=== PATIENT | male | born 1940 | race Caucasian/White ===

== ENCOUNTER 2018-12-24 03:04 | Inpatient (IN) | payer MEDICARE, OTHER ==
[2018-12-24] VITALS (64 sets, daily range): BP systolic 96–145; BP diastolic 53–93; PULSE 73–98; RESP 15–29
[~2018-12-24] VITALS: Ht 170.2 cm; Wt 81.0 kg
[2018-12-24] MEDS ORDERED: NITROGLYCERIN 50 MG/D5W (PMX) 250 ML ONE (03:09)
[2018-12-24] MEDS ORDERED: FUROSEMIDE 40 MG INJ ONE (03:15)
[2018-12-24] MEDS ORDERED: FUROSEMIDE 40 MG INJ IV ONE (03:30)
[2018-12-24] MEDS ORDERED: NITROGLYCERIN 50 MG/D5W (PMX) 250 ML IV SCH (03:30)
--- NOTE | 2018-12-24 04:19 | ERD ---
ER Documentation Chief Complaint Chief Complaint bib ra from home for sob, patient has hx of chf, on cpap upon arrival HPI This is a 78-year-old male brought in by rescue for acute onset of shortness of breath. Patient has history of CHF. EMS placed patient on CPAP prior to arrival. EKG shows STEMI.. Patient denies any chest pain. ROS All systems reviewed and are negative except as per history of present illness. PMhx/Soc Medical and Surgical Hx: Unable to obtain Hx Alcohol Use: No Hx Substance Use: No Hx Tobacco Use: No Smoking Status: Never smoker Physical Exam Vitals Vital Signs Date Temp Pulse Resp B/P (MAP) Pulse Ox O2 O2 Flow FiO2 Time Delivery Rate 12/24/18 107 24 122/74 100 BIPAP 04:11 (90) 12/24/18 Nasal 03:36 Cannula 12/24/18 98.1 125 44 150/93 100 Room Air 03:16 (112) 12/24/18 98.1 127 44 170/100 100 03:16 (123) Physical Exam Const: No acute distress Head: Atraumatic Eyes: Normal Conjunctiva ENT: Normal External Ears, Nose and Mouth. Neck: Full range of motion. No meningismus. Resp: Clear to auscultation bilaterally Cardio: Regular rate and rhythm, no murmurs Abd: Soft, non tender, non distended. Normal bowel sounds Skin: No petechiae or rashes Back: No midline or flank tenderness Ext: No cyanosis, or edema Neur: Awake and alert Psych: Normal Mood and Affect Result Diagram: 12/24/18 0320 Results 24 hrs Laboratory Tests Test 12/24/18 03:12 12/24/18 03:20 Bedside Glucose 409 mg/dL White Blood Count 21.6 10^3/ul Red Blood Count 4.19 10^6/ul Hemoglobin 12.3 g/dl Hematocrit 40.4 % Mean Corpuscular Volume 96.4 fl Mean Corpuscular Hemoglobin 29.4 pg Mean Corpuscular Hemoglobin Concent 30.4 g/dl Red Cell Distribution Width 14.3 % Platelet Count 456 10^3/UL Mean Platelet Volume 10.6 fl Immature Granulocytes % 0.800 % Neutrophils % 55.4 % Lymphocytes % 35.3 % Monocytes % 4.0 % Eosinophils % 3.9 % Basophils % 0.6 % Nucleated Red Blood Cells % 0.0 /100WBC Immature Granulocytes # 0.170 10^3/ul Neutrophils # 11.9 10^3/ul Lymphocytes # 7.6 10^3/ul Monocytes # 0.9 10^3/ul Eosinophils # 0.8 10^3/ul Basophils # 0.1 10^3/ul Nucleated Red Blood Cells # 0.0 10^3/ul Current Medications Medications Dose Sig/Kiko Start Time Status Last (Trade) Ordered Route PRN Stop Time Admin Dose Reason Admin 250 ml @ 0 TITRATE IV 12/24/18 12/24/18 Nitroglycerin mls/hr 03:30 03:44 / Dextrose Furosemide 80 mg ONCE ONCE 12/24/18 DC 12/24/18 (Lasix) IV 03:30 03:44 12/24/18 03:31 Procedures/MDM EKG: Rate/Rhythm: [Normal Sinus Rhythm] QRS, ST, T-waves: [No changes consistent w/ acute ischemia] Impression: [No evidence of ischemia or arrhythmia] Chest X-ray 1V Interpreted by me: Soft Tissue: No acute abnormalities Bones: No acute abnormalities Mediastinum/Cardiac Silhouette/Lungs: Increased interstitial markings. Impression: CHF Medical decision making: Patient's heart failure symptoms is concerning for acute decompensation and will require inpatient workup and monitoring. Further w/u for ischemia, arrhythmia, PE or dissection will be deferred to the inpatient team. Patient was treated with high-dose nitroglycerin and BiPAP. Also given 80 mg of Lasix. Resolution of symptomology began approximately 45 minutes after arrival. Blood pressure normalized. Patient's breathing also normalized. Accepting Care Team: Current data and ongoing care discussed. Time: 4 AM Primary Provider: Dr. Krishnamurthy Consulting: Deferred to inpatient team Outstanding Data: none Critical Care: Time: 45 minutes, independent of any separately billable procedural time Treatments/Evaluations: Close monitoring and treatment of unstable vital signs, cardiorespiratory, and neurologic status, while maintaining tight balance of fluid, respiratory, and cardiac interventions. Departure Diagnosis: Primary Impression: Acute pulmonary edema Condition: Serious NAHOMI RODRÍGUEZ December 24, 2018 04:19
[2018-12-24] MEDS ORDERED: DEXTROSE 50% 50 ML SYRINGE IV PRN ×2 (05:00)
[2018-12-24] MEDS ORDERED: NA BICARBONATE 8.4% 50 ML SYG IV ONE (05:00)
[2018-12-24] MEDS ORDERED: INSULIN HUMAN REGULAR 100 UNIT in SOD CHLORIDE 0.9% 99 ML IV SCH (05:00)
[2018-12-24] MEDS ORDERED: LEVALBUTEROL (NEB) 1.25 MG/0.5 ML AMP HHN PRN (05:00)
[2018-12-24] MEDS ORDERED: NITROGLYCERIN (SL) 0.4 MG TAB SL PRN (05:00)
[2018-12-24] MEDS ORDERED: IPRATROPIUM (HFA) 12.9 GM INHALER INH PRN (05:00)
[2018-12-24] MEDS ORDERED: PANTOPRAZOLE 40 MG INJ IV SCH (06:00)
[2018-12-24] MEDS: ACCU-CHEK XX SCH ×11 (07:30→23:35)
[2018-12-24] MEDS ORDERED: HEPARIN 25000 UNITS/250 ML 250 ML IV SCH (07:30)
[2018-12-24] MEDS ORDERED: HEPARIN 1000 UNITS/ML 10 ML INJ IV ONE (07:30)
[2018-12-24] MEDS ORDERED: HEPARIN 1000 UNITS/ML 10 ML INJ IV PRN (07:30)
[2018-12-24] MEDS ORDERED: SULF-182 ORAL (07:37)
[2018-12-24] MEDS ORDERED: CALC0.255 PO (07:37)
[2018-12-24] MEDS ORDERED: RANI300T PO (07:41)
[2018-12-24] MEDS ORDERED: TRA100 PO (07:41)
[2018-12-24] MEDS ORDERED: ERGO500013 ORAL (07:41)
[2018-12-24] MEDS ORDERED: DOCU-159 PO (07:41)
[2018-12-24] MEDS ORDERED: ALLO300T2 PO (07:41)
[2018-12-24] MEDS ORDERED: LANT3I SC (07:41)
[2018-12-24] MEDS ORDERED: LEVO5TAB ORAL (07:41)
[2018-12-24] MEDS ORDERED: TAMS-14 PO (07:43)
[2018-12-24] MEDS ORDERED: CARV6.2579 ORAL (07:43)
[2018-12-24] MEDS ORDERED: LOSA1TAB28 ORAL (07:43)
[2018-12-24] MEDS ORDERED: MAGN400T27 PO (07:43)
--- NOTE | 2018-12-24 09:14 | HP ---
Date/Time of Note Date/Time of Note DATE: 12/24/18 TIME: 09:06 Assessment/Plan VTE Prophylaxis Pharmacological prophylaxis: heparin Lines/Catheters IV [facility]from [facility] Saline Lock Urinary Cath still in place: No Assessment/Plan Hospital Course This is a 78-year-old male being admitted to the ICU floor for: #1 Acute respiratory failure: Improved after receiving nitroglycerin and BiPAP. We will continue BiPAP at the current time. Serial ABGs. Consult pulmonology. #2 volume overload: Suspect secondary to underlying end-stage renal disease, versus ACS. Patient denied any chest pain however given that he did have initial elevated troponin there is concern for possible ACS event. He did receive Lasix in the emergency department as he does produce urine still and nitroglycerin drip. Will trend cardiac enzymes, initial one was 0.2, will consult nephrology for emergent dialysis Dr. Miller. #3 non-STEMI: Type I versus type II. versus elevated in the setting of end- stage renal disease. Initial troponin was 0.2, will trend this and if it continues to rise we will initiate heparin drip. Will obtain an echocardiogram. Will consult cardiology. #4 severe hyperglycemia: Patient does have a metabolic acidosis this is likely secondary to underlying end-stage renal disease and his respiratory distress and less likely DKA. His ABG shows a pH 7.3. We will initiate the patient on insulin GTT with goal blood sugars around 180 range. #5 leukocytosis: Possibly stress response, patient is afebrile. No signs of infection at the current time. Will check urinalysis. Monitor for any signs of fevers. #6 metabolic acidosis: Secondary likely to underlying end-stage renal disease, volume overload, respiratory failure, elevated blood sugars. Will give a treatment of sodium bicarb. Treat the underlying conditions. Further management as per nephrology. #7 end-stage renal disease: On HD Monday. Will avoid nephrotoxic agents. Patient did receive Lasix at the current time given his volume overload. Will consult nephrology for emergent dialysis Dr. Miller. #8 hypertension: We will resume carvedilol, hold ARB at the current time given unknown baseline creatinine. #9 he is mellitus: We will check hemoglobin A1c, insulin sliding scale need to confirm patient's home insulin dose #10 gout: Resume albuterol as indicated #11 DVT GI prophylaxis: Heparin, Protonix Further treatment strategy will be implemented as per the clinical course Greater than 45 minutes of time spent on the care management this patient. Result Diagram: 12/24/18 0320 12/24/18 0807 Results 24hrs Laboratory Tests Test 12/24/18 03:12 12/24/18 03:19 12/24/18 03:20 12/24/18 04:10 Bedside Glucose 409 *H Blood Gas Blood arterial Specimen Source Arterial Blood 12/24/2018 4:25:0 Date Drawn 7 AM Arterial Blood pH 7.333 L (Temp corrected) Arterial Blood 36.1 pCO2 (Temp correct) Arterial Blood 263.9 H pO2 (Temp corrected) Arterial Blood 18.7 L HCO3 Arterial Blood -6.4 L Base Excess Arterial Blood 99.3 Oxygen Saturation Inocencio Test ACCEPTAB Arterial Blood Right Radial Gas Puncture Site Arterial 0 Blood Carboxyhemo globin Arterial Blood 0.4 Methemoglobin Blood Gas A-a O2 413.0 H Differential Oxyhemoglobin 98.9 Percent Blood Gas 37.0 Temperature Blood Gas 20.0 Respiration Rate Blood Gas Actual 22 Respiration Rate Blood Gas MASK - BIPAP Modality FiO2 100.0 Blood Gas 19/12 IPAP/EPAP Ratio Blood Gas MG Notified Whom Blood Gas 12/24/2018 4:36:1 Notified Time 0 AM White Blood Count 21.6 H Red Blood Count 4.19 L Hemoglobin 12.3 L Hematocrit 40.4 L Mean Corpuscular 96.4 Volume Mean Corpuscular 29.4 Hemoglobin Mean Corpuscular 30.4 L Hemoglobin Concen t Red Cell 14.3 Distribution Width Platelet Count 456 H Mean Platelet 10.6 H Volume Immature 0.800 H Granulocytes % Neutrophils % 55.4 Segmented 69 Neutrophils % (Manual) Lymphocytes % 35.3 Lymphocytes % 23 (Manual) Monocytes % 4.0 Monocytes % 4 (Manual) Eosinophils % 3.9 Eosinophils % 3 (Manual) Basophils % 0.6 Basophils % 1 (Manual) Nucleated Red 0.0 Blood Cells % Immature 0.170 H Granulocytes # Neutrophils # 11.9 H Lymphocytes 4.9 H (Manual) Lymphocytes # 7.6 H Monocytes # 0.9 Monocytes # 0.8 (Manual) Eosinophils # 0.8 H Basophils # 0.1 Basophils # 0.2 H (Manual) Nucleated Red 0.0 Blood Cells # Platelet Estimate NORMAL Polychromasia 1+ Poikilocytosis 2+ Sodium Level 142 Potassium Level 4.8 Chloride Level 105 Carbon Dioxide 16 L Level Anion Gap 21 H Blood Urea 56 H Nitrogen Creatinine 6.25 H Est Glomerular Filtrat Rate mL/min Glucose Level 419 *H Calcium Level 9.5 Total Bilirubin 0.4 Direct Bilirubin 0.00 Indirect 0.4 Bilirubin Aspartate Amino 35 Transf (AST/SGOT) Alanine 7 L Aminotransferase (ALT/SGPT) Alkaline 91 Phosphatase Troponin I 0.201 *H B-Type 32802 H Natriuretic Peptide Total Protein 8.4 H Albumin 4.4 Globulin 4.00 H Albumin/Globulin 1.10 Ratio Lipase 174 Prothrombin Time 12.9 Prothrombin Time 1.0 Ratio INR International 0.96 Normalized Ratio Activated 24.3 Partial Thrombopl ast Time Test 12/24/18 05:31 12/24/18 05:58 12/24/18 07:07 12/24/18 07:58 Lactic Acid Level 2.0 Creatine Kinase 60 Creatine Kinase 5.7 Index Creatinine Kinase 3.43 H MB (Mass) Troponin I 0.507 *H Bedside Glucose 338 H 325 H 268 H Test 12/24/18 08:07 White Blood Count Pending Red Blood Count Pending Hemoglobin Pending Hematocrit Pending Mean Corpuscular Pending Volume Mean Corpuscular Pending Hemoglobin Mean Corpuscular Pending Hemoglobin Concen t Red Cell Pending Distribution Width Platelet Count Pending Mean Platelet Pending Volume Prothrombin Time 12.7 Prothrombin Time 1.0 Ratio INR International 0.94 Normalized Ratio Activated 28.5 Partial Thrombopl ast Time Sodium Level 143 Potassium Level 4.4 Chloride Level 101 Carbon Dioxide 26 # Level Anion Gap 16 H Blood Urea 61 H Nitrogen Creatinine 6.87 H Est Glomerular Filtrat Rate mL/min Glucose Level 277 #H Calcium Level 9.8 Total Bilirubin 0.4 Direct Bilirubin 0.00 Indirect 0.4 Bilirubin Aspartate Amino 28 Transf (AST/SGOT) Alanine 10 L Aminotransferase (ALT/SGPT) Alkaline 85 Phosphatase Total Protein 7.7 Albumin 4.3 Globulin 3.40 H Albumin/Globulin 1.26 Ratio HPI/ROS Admit Date/Time Admit Date/Time December 24, 2018 at 04:04 Hx of Present Illness Chief complaint: Shortness of breath This is a 78-year-old male who was brought via ambulance to [facility] emergency department in extremities and as a possible STEMI. When patient arrived in the emergency department via EMS he was noted to be in severe res piratory distress and was placed on CPAP in route. The ED physician did order a stat EKG which she stated did not appear to be a STEMI. In the emergency department patient was noted to have elevated blood pressures in the 170s. On examination of his lungs he had diffuse crackles/rales and wheezing. BiPAP and nitroglycerin were initiated which did result in improvement of patient's symptoms. His daughter was present with him at the bedside. She states that over the last week he has been having a cough. He has been going to his regular dialysis appointments. Daughter stated that for the cough patient was recently started on Bactrim on Monday and and then this morning woke up short of b reath.vomiting. He denies chest pain nausea vomiting or diarrhea. Allergies: Levaquin Medications: See OCT JAYSHREE Subjective hx not possible: pt critical status (In respiratory distress) PMH/Family/Social Past Medical History Diabetes mellitus, end-stage renal disease on HD Monday, hypertension, gout Medications Current Medications Ipratropium Nelson (Atrovent Hfa) 4 puff Q4H RESP THERAPY PRN INH SHORTNESS OF BREATH; Start 12/24/18 at 05:00 Nitroglycerin (Nitroglycerin (Sl Tab) 0.4 Mg) 1 tab Q5M PRN SL CHEST PAIN; Start 12/24/18 at 05:00 Acetaminophen (Tylenol Liquid) 650 mg Q6H PRN PO PAIN LEVEL 1-3 OR FEVER; Start 12/24/18 at 05:00 Morphine Sulfate (morphine) 2 mg Q4H PRN IV PAIN LEVEL 7-10; Start 12/24/18 at 05:00 Levalbuterol (Xopenex Neb) 1.25 mg Q4H RESP THERAPY PRN HHN SHORTNESS OF BREATH; Start 12/24/18 at 05:00 Diagnostic Test (Pha) (Accu-Chek) 1 ea Q1H XX ; Start 12/24/18 at 05:00 Insulin Human Regular 100 unit/ Sodium Chloride 100 ml @ 0 mls/hr PER PROTOCOL IV Last administered on 12/24/18at 06:01; Admin Dose 4 MLS/HR; Start 12/24/18 at 05:00 Miscellaneous Information (* Miscellaneous Pharmacy Order) Treatment of Hypoglycemia: 1.BG 51... Per protocol XX ; Start 12/24/18 at 05:00 Dextrose (D50w Syringe) 25 ml Q15M PRN IV .DECREASED GLUCOSE; Start 12/24/18 at 05:00 Dextrose (D50w Syringe) 50 ml Q15M PRN IV .DECREASED GLUCOSE; Start 12/24/18 at 05:00 Famotidine (Pepcid Iv) 20 mg DAILY IV ; Start 12/24/18 at 09:00 Heparin Sodium (Porcine) (Heparin (1000 Units/ml)) 4,000 unit PER PROTOCOL PRN IV aPTT<47; Start 12/24/18 at 07:30 Heparin Sodium (Porcine) 250 ml @ 9.5 mls/hr PER PROTOCOL IV ; Start 12/24/18 at 07:30 Coded Allergies: levofloxacin (Verified Allergy, Unknown, 12/24/18) Past Surgical History Left upper extremity AV fistula Family History Significant Family History: no pertinent family hx Social History Alcohol Use: none Smoking Status: Never smoker Drug Use: none Exam/Review of Systems Vital Signs Vitals Vital Signs Date Temp Pulse Resp B/P (MAP) Pulse Ox O2 O2 Flow FiO2 Time Delivery Rate 12/24/18 84 19 100 08:40 12/24/18 125/72 08:00 (89) 12/24/18 96.6 BIPAP 07:50 12/24/18 50 04:47 Exam Exam General: Patient initially noted to be in severe respiratory distress, currently on BiPAP HEENT: Atraumatic, normocephalic. The pupils are equal, round and reactive. Extraocular motor are intact Neck: Supple with full range of motion. No rigidity or meningismus Chest: Nontender Lungs: Wheezing bilaterally, crackles rales, in severe respiratory distress, on BiPAP Heart: Sinus tachycardia Abdomen: Soft , obese nontender, nondistended , bowel sounds are present. No guarding no rebound tenderness , No masses or organomegaly. No costovertebral temporal angle mass Extremities: Normal to inspection, no edema no cyanosis Neurologic: Alert and awake, but in respiratory distress. Further neurological exam unable to be completed given respiratory status Additional Comments PROCEDURE: XR Chest. CLINICAL INDICATION: Chest pain and myocardial infarct TECHNIQUE: AP Portable chest. COMPARISON: None available FINDINGS: The soft tissues and bones are remarkable for thoracic enthesopathy and bilateral mild acromioclavicular osteoarthropathy. Mild diffuse bilateral interstitial edema is present. No focal infiltrates, masses, or effusions are noted. The mediastinum and heart are remarkable for mild vascular calc ifications of the thoracic aorta and mild cardiomegaly. No pneumothorax is present. IMPRESSION: 1. Mild cardiogenic pulmonary venous hypertension 2. Mild cardiomegaly and atherosclerotic vascular disease 3. 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
[2018-12-24] MEDS ORDERED: DOCUSATE SODIUM 100 MG CAP PO PRN (09:30)
--- NOTE | 2018-12-24 10:03 | PN ---
Date/Time of Note Date/Time of Note DATE: 12/24/18 TIME: 10:03 Assessment/Plan VTE Prophylaxis Pharmacological prophylaxis: heparin Lines/Catheters IV Catheter Type (from Nrsg): Saline Lock Urinary Cath still in place: No Assessment/Plan Hospital Course #1 Acute respiratory failure: Improved after receiving nitroglycerin and BiPAP. We will continue BiPAP at the current time. Serial ABGs. Consult pulmonology. #2 volume overload: nephro has setup HD #3 non-STEMI: Type I versus type II. versus elevated in the setting of end- stage renal disease. Initial troponin was 0.2, continue trend, await cardio rev iew #4 DM with severe hyperglycemia: continue insulin #5 leukocytosis: Possibly stress response, patient is afebrile. No signs of infection at the current time. Will check urinalysis. Monitor for any signs of fevers. #6 metabolic acidosis: Secondary likely to underlying end-stage renal disease, volume overload, respiratory failure, elevated blood sugars. Will give a treatment of sodium bicarb. Treat the underlying conditions. Further management as per nephrology. #7 end-stage renal disease: On HD Monday. Will avoid nephrotoxic agents. Patient did receive Lasix at the current time given his volume overload. #8 hypertension: We will resume carvedilol, hold ARB at the current time given unknown baseline creatinine. #9 DM: We will check hemoglobin A1c, insulin sliding scale need to confirm patient's home insulin dose #10 gout: Resume albuterol as indicated #11 DVT GI prophylaxis: Heparin, Protonix CRITICAL CARE TIME: >35 mins of which more than half was spent at the bedside and during counselling Result Diagram: 12/24/18 0807 12/24/18 0807 Results 24hrs Laboratory Tests Test 12/24/18 03:12 12/24/18 03:19 12/24/18 03:20 12/24/18 04:10 Bedside Glucose 409 *H Blood Gas Blood arterial Specimen Source Arterial Blood 12/24/2018 4:25:0 Date Drawn 7 AM Arterial Blood pH 7.333 L (Temp corrected) Arterial Blood 36.1 pCO2 (Temp correct) Arterial Blood 263.9 H pO2 (Temp corrected) Arterial Blood 18.7 L HCO3 Arterial Blood -6.4 L Base Excess Arterial Blood 99.3 Oxygen Saturation Inocencio Test ACCEPTAB Arterial Blood Right Radial Gas Puncture Site Arterial 0 Blood Carboxyhemo globin Arterial Blood 0.4 Methemoglobin Blood Gas A-a O2 413.0 H Differential Oxyhemoglobin 98.9 Percent Blood Gas 37.0 Temperature Blood Gas 20.0 Respiration Rate Blood Gas Actual 22 Respiration Rate Blood Gas MASK - BIPAP Modality FiO2 100.0 Blood Gas 19/12 IPAP/EPAP Ratio Blood Gas MG Notified Whom Blood Gas 12/24/2018 4:36:1 Notified Time 0 AM White Blood Count 21.6 H Red Blood Count 4.19 L Hemoglobin 12.3 L Hematocrit 40.4 L Mean Corpuscular 96.4 Volume Mean Corpuscular 29.4 Hemoglobin Mean Corpuscular 30.4 L Hemoglobin Concen t Red Cell 14.3 Distribution Width Platelet Count 456 H Mean Platelet 10.6 H Volume Immature 0.800 H Granulocytes % Neutrophils % 55.4 Segmented 69 Neutrophils % (Manual) Lymphocytes % 35.3 Lymphocytes % 23 (Manual) Monocytes % 4.0 Monocytes % 4 (Manual) Eosinophils % 3.9 Eosinophils % 3 (Manual) Basophils % 0.6 Basophils % 1 (Manual) Nucleated Red 0.0 Blood Cells % Immature 0.170 H Granulocytes # Neutrophils # 11.9 H Lymphocytes 4.9 H (Manual) Lymphocytes # 7.6 H Monocytes # 0.9 Monocytes # 0.8 (Manual) Eosinophils # 0.8 H Basophils # 0.1 Basophils # 0.2 H (Manual) Nucleated Red 0.0 Blood Cells # Platelet Estimate NORMAL Polychromasia 1+ Poikilocytosis 2+ Sodium Level 142 Potassium Level 4.8 Chloride Level 105 Carbon Dioxide 16 L Level Anion Gap 21 H Blood Urea 56 H Nitrogen Creatinine 6.25 H Est Glomerular Filtrat Rate mL/min Glucose Level 419 *H Calcium Level 9.5 Total Bilirubin 0.4 Direct Bilirubin 0.00 Indirect 0.4 Bilirubin Aspartate Amino 35 Transf (AST/SGOT) Alanine 7 L Aminotransferase (ALT/SGPT) Alkaline 91 Phosphatase Troponin I 0.201 *H B-Type 06313 H Natriuretic Peptide Total Protein 8.4 H Albumin 4.4 Globulin 4.00 H Albumin/Globulin 1.10 Ratio Lipase 174 Prothrombin Time 12.9 Prothrombin Time 1.0 Ratio INR International 0.96 Normalized Ratio Activated 24.3 Partial Thrombopl ast Time Test 12/24/18 05:31 12/24/18 05:58 12/24/18 07:07 12/24/18 07:58 Lactic Acid Level 2.0 Creatine Kinase 60 Creatine Kinase 5.7 Index Creatinine Kinase 3.43 H MB (Mass) Troponin I 0.507 *H Bedside Glucose 338 H 325 H 268 H Test 12/24/18 08:07 12/24/18 09:18 White Blood Count 16.5 #H Red Blood Count 4.03 L Hemoglobin 11.8 L Hematocrit 37.3 L Mean Corpuscular 92.6 Volume Mean Corpuscular 29.3 Hemoglobin Mean Corpuscular 31.6 L Hemoglobin Concen t Red Cell 13.9 Distribution Width Platelet Count 280 # Mean Platelet 10.3 Volume Immature 0.700 H Granulocytes % Neutrophils % 86.4 H Lymphocytes % 7.0 L Monocytes % 5.5 Eosinophils % 0.2 Basophils % 0.2 Nucleated Red 0.0 Blood Cells % Immature 0.110 H Granulocytes # Neutrophils # 14.2 H Lymphocytes # 1.2 Monocytes # 0.9 Eosinophils # 0.0 Basophils # 0.0 Nucleated Red 0.0 Blood Cells # Prothrombin Time 12.7 Prothrombin Time 1.0 Ratio INR International 0.94 Normalized Ratio Activated 28.5 Partial Thrombopl ast Time Sodium Level 143 Potassium Level 4.4 Chloride Level 101 Carbon Dioxide 26 # Level Anion Gap 16 H Blood Urea 61 H Nitrogen Creatinine 6.87 H Est Glomerular Filtrat Rate mL/min Glucose Level 277 #H Calcium Level 9.8 Total Bilirubin 0.4 Direct Bilirubin 0.00 Indirect 0.4 Bilirubin Aspartate Amino 28 Transf (AST/SGOT) Alanine 10 L Aminotransferase (ALT/SGPT) Alkaline 85 Phosphatase Total Protein 7.7 Albumin 4.3 Globulin 3.40 H Albumin/Globulin 1.26 Ratio Bedside Glucose 184 Subjective 24 Hr Interval Summary Free Text/Dictation Patient looks fairly comfortable on BiPAP. Was sleeping but easily arousable, follows commands, communicative with gestures and nodding his head Exam/Review of Systems Exam Vitals Vital Signs Date Temp Pulse Resp B/P (MAP) Pulse Ox O2 O2 Flow FiO2 Time Delivery Rate 12/24/18 83 100 50 09:28 12/24/18 19 08:40 12/24/18 125/72 08:00 (89) 12/24/18 96.6 BIPAP 07:50 Constitutional: alert, oriented Psych: anxiety Eyes: PERRL ENMT: other (BiPAP mask in place) Respiratory: congested cough, diminished breath sounds (++), labored breathing; No wheezing Cardiovascular: regular rate and rhythm; No murmurs/extra sounds Gastrointestinal: soft, non-tender, bowel sounds Extremities: edema Results Results 24hrs Laboratory Tests Test 12/24/18 03:12 12/24/18 03:19 12/24/18 03:20 12/24/18 04:10 Bedside Glucose 409 *H Blood Gas Blood arterial Specimen Source Arterial Blood 12/24/2018 4:25:0 Date Drawn 7 AM Arterial Blood pH 7.333 L (Temp corrected) Arterial Blood 36.1 pCO2 (Temp correct) Arterial Blood 263.9 H pO2 (Temp corrected) Arterial Blood 18.7 L HCO3 Arterial Blood -6.4 L Base Excess Arterial Blood 99.3 Oxygen Saturation Inocencio Test ACCEPTAB Arterial Blood Right Radial Gas Puncture Site Arterial 0 Blood Carboxyhemo globin Arterial Blood 0.4 Methemoglobin Blood Gas A-a O2 413.0 H Differential Oxyhemoglobin 98.9 Percent Blood Gas 37.0 Temperature Blood Gas 20.0 Respiration Rate Blood Gas Actual 22 Respiration Rate Blood Gas MASK - BIPAP Modality FiO2 100.0 Blood Gas 19/12 IPAP/EPAP Ratio Blood Gas MG Notified Whom Blood Gas 12/24/2018 4:36:1 Notified Time 0 AM White Blood Count 21.6 H Red Blood Count 4.19 L Hemoglobin 12.3 L Hematocrit 40.4 L Mean Corpuscular 96.4 Volume Mean Corpuscular 29.4 Hemoglobin Mean Corpuscular 30.4 L Hemoglobin Concen t Red Cell 14.3 Distribution Width Platelet Count 456 H Mean Platelet 10.6 H Volume Immature 0.800 H Granulocytes % Neutrophils % 55.4 Segmented 69 Neutrophils % (Manual) Lymphocytes % 35.3 Lymphocytes % 23 (Manual) Monocytes % 4.0 Monocytes % 4 (Manual) Eosinophils % 3.9 Eosinophils % 3 (Manual) Basophils % 0.6 Basophils % 1 (Manual) Nucleated Red 0.0 Blood Cells % Immature 0.170 H Granulocytes # Neutrophils # 11.9 H Lymphocytes 4.9 H (Manual) Lymphocytes # 7.6 H Monocytes # 0.9 Monocytes # 0.8 (Manual) Eosinophils # 0.8 H Basophils # 0.1 Basophils # 0.2 H (Manual) Nucleated Red 0.0 Blood Cells # Platelet Estimate NORMAL Polychromasia 1+ Poikilocytosis 2+ Sodium Level 142 Potassium Level 4.8 Chloride Level 105 Carbon Dioxide 16 L Level Anion Gap 21 H Blood Urea 56 H Nitrogen Creatinine 6.25 H Est Glomerular Filtrat Rate mL/min Glucose Level 419 *H Calcium Level 9.5 Total Bilirubin 0.4 Direct Bilirubin 0.00 Indirect 0.4 Bilirubin Aspartate Amino 35 Transf (AST/SGOT) Alanine 7 L Aminotransferase (ALT/SGPT) Alkaline 91 Phosphatase Troponin I 0.201 *H B-Type 82303 H Natriuretic Peptide Total Protein 8.4 H Albumin 4.4 Globulin 4.00 H Albumin/Globulin 1.10 Ratio Lipase 174 Prothrombin Time 12.9 Prothrombin Time 1.0 Ratio INR International 0.96 Normalized Ratio Activated 24.3 Partial Thrombopl ast Time Test 12/24/18 05:31 12/24/18 05:58 12/24/18 07:07 12/24/18 07:58 Lactic Acid Level 2.0 Creatine Kinase 60 Creatine Kinase 5.7 Index Creatinine Kinase 3.43 H MB (Mass) Troponin I 0.507 *H Bedside Glucose 338 H 325 H 268 H Test 12/24/18 08:07 12/24/18 09:18 White Blood Count 16.5 #H Red Blood Count 4.03 L Hemoglobin 11.8 L Hematocrit 37.3 L Mean Corpuscular 92.6 Volume Mean Corpuscular 29.3 Hemoglobin Mean Corpuscular 31.6 L Hemoglobin Concen t Red Cell 13.9 Distribution Width Platelet Count 280 # Mean Platelet 10.3 Volume Immature 0.700 H Granulocytes % Neutrophils % 86.4 H Lymphocytes % 7.0 L Monocytes % 5.5 Eosinophils % 0.2 Basophils % 0.2 Nucleated Red 0.0 Blood Cells % Immature 0.110 H Granulocytes # Neutrophils # 14.2 H Lymphocytes # 1.2 Monocytes # 0.9 Eosinophils # 0.0 Basophils # 0.0 Nucleated Red 0.0 Blood Cells # Prothrombin Time 12.7 Prothrombin Time 1.0 Ratio INR International 0.94 Normalized Ratio Activated 28.5 Partial Thrombopl ast Time Sodium Level 143 Potassium Level 4.4 Chloride Level 101 Carbon Dioxide 26 # Level Anion Gap 16 H Blood Urea 61 H Nitrogen Creatinine 6.87 H Est Glomerular Filtrat Rate mL/min Glucose Level 277 #H Calcium Level 9.8 Total Bilirubin 0.4 Direct Bilirubin 0.00 Indirect 0.4 Bilirubin Aspartate Amino 28 Transf (AST/SGOT) Alanine 10 L Aminotransferase (ALT/SGPT) Alkaline 85 Phosphatase Total Protein 7.7 Albumin 4.3 Globulin 3.40 H Albumin/Globulin 1.26 Ratio Bedside Glucose 184 Medications Medication Current Medications Ipratropium [place] (Atrovent Hfa) 4 puff Q4H RESP THERAPY PRN INH SHORTNESS OF BREATH; Start 12/24/18 at 05:00 Nitroglycerin (Nitroglycerin (Sl Tab) 0.4 Mg) 1 tab Q5M PRN SL CHEST PAIN; Start 12/24/18 at 05:00 Acetaminophen (Tylenol Liquid) 650 mg Q6H PRN PO PAIN LEVEL 1-3 OR FEVER; Start 12/24/18 at 05:00 Morphine Sulfate (morphine) 2 mg Q4H PRN IV PAIN LEVEL 7-10; Start 12/24/18 at 05:00 Levalbuterol (Xopenex Neb) 1.25 mg Q4H RESP THERAPY PRN HHN SHORTNESS OF BREATH; Start 12/24/18 at 05:00 Diagnostic Test (Pha) (Accu-Chek) 1 ea Q1H XX Last administered on 12/24/18at 09:30; Admin Dose 1 EA; Start 12/24/18 at 05:00 Insulin Human Regular 100 unit/ Sodium Chloride 100 ml @ 0 mls/hr PER PROTOCOL IV Last administered on 12/24/18at 06:01; Admin Dose 4 MLS/HR; Start 12/24/18 at 05:00 Miscellaneous Information (* Miscellaneous Pharmacy Order) Treatment of Hypoglycemia: 1.BG 51... Per protocol XX ; Start 12/24/18 at 05:00 Dextrose (D50w Syringe) 25 ml Q15M PRN IV .DECREASED GLUCOSE; Start 12/24/18 at 05:00 Dextrose (D50w Syringe) 50 ml Q15M PRN IV .DECREASED GLUCOSE; Start 12/24/18 at 05:00 Famotidine (Pepcid Iv) 20 mg DAILY IV ; Start 12/24/18 at 09:00 Heparin Sodium (Porcine) (Heparin (1000 Units/ml)) 4,000 unit PER PROTOCOL PRN IV aPTT<47; Start 12/24/18 at 07:30 Heparin Sodium (Porcine) 250 ml @ 9.5 mls/hr PER PROTOCOL IV ; Start 12/24/18 at 07:30 Calcitriol (Rocaltrol) 0.25 mcg DAILY PO ; Start 12/25/18 at 09:00 Docusate Sodium (Colace) 100 mg DAILY PRN PO CONSTIPATION; Start 12/24/18 at 09:30 Magnesium Oxide (Mag-Ox 400) 400 mg DAILY PO ; Start 12/25/18 at 09:00 Tamsulosin HCl (Flomax) 0.4 mg HS PO ; Start 12/24/18 at 21:00 Carvedilol (Coreg) 25 mg BID PO ; Start 12/24/18 at 21:00 ESTELA GIVENS December 24, 2018 10:03
--- NOTE | 2018-12-24 10:43 | CONS ---
DATE OF ADMISSION: 12/24/2018 DATE OF CONSULTATION: 12/24/2018 TYPE OF CONSULTATION: Nephrology. REASON FOR CONSULTATION: End-stage renal disease. PHYSICIAN REQUESTING CONSULTATION: Dr. Elizalde. HISTORY OF PRESENT ILLNESS: This is a 78-year-old male with a past medical history of end-stage alexandra l disease on dialysis Monday, Monday, Monday with access AV fistula. The patient's primary nephro logist is Dr. Hagen, history of hypertension, history of anemia, who presents to the [facility] with shortness of breath. The patient's history is obtained by speaking to the steve blancas at bedside. Per patient's daughter, the patient has been having increase in some mild shortness of breath. The patient was initially given antibiotic therapy by his primary care physician. However, symptoms have progressively worsened. This morning, the patient was noted to have significant short ness of breath. As a result, he came into the emergency room. Upon arrival, the patient had imaging studies including chest x-ray, which showed evidence of pulmonary venous hypertension and cardiomega ly. The patient was in hypertensive urgency with systolic pressures greater than 170. The patient w as placed on nitroglycerin drip. The patient was also noted to be in respiratory failure and placed on BiPAP. There were no reports of any hemoptysis, hematemesis or hematochezia. PAST MEDICAL HISTORY: History of end-stage renal disease, history of hypertension, history of anemia , history of mineral bone disorder, History of diabetes. PAST SURGICAL HISTORY: Status post AV fistula placement. FAMILY HISTORY: No family history of kidney disease. ALLERGIES: LEVAQUIN. MEDICATIONS: The patient's medications have been reviewed. REVIEW OF SYSTEMS: A 14-point review of systems was conducted. Pertinent positives stated in HPI, o therwise negative. PHYSICAL EXAMINATION: VITAL SIGNS: Blood pressure is 116/69, respirations 20, pulse 89, temperature 98.2. HEENT: Head is normocephalic. NECK: Supple. HEART: Regular rate. LUNGS: Show diminished breath sounds at the base. ABDOMEN: Soft, nontender to palpation without rebound or guarding. EXTREMITIES: Negative for clubbing, cyanosis, no edema. DERMATOLOGIC: No rashes. MUSCULOSKELETAL: No joint effusion. NEUROLOGIC: No change in exam. LABORATORY DATA: Reviewed. IMAGING STUDIES: Reviewed. ABG was reviewed. ASSESSMENT AND PLAN: This is a 78-year-old male who presents with: 1. End-stage renal disease. The patient is on dialysis Monday, Monday, Monday with access AV [facility]. Plan is for hemodialysis today. We will dialyze for 3 hours 2k bath, calcium 2.5, ultrafiltra te as tolerated. 2. Anemia. Monitor hemoglobin and hematocrit levels. We will give Epogen as needed. 3. Mineral bone disorder. Monitor calcium and phosphorus levels. 4. Acute hypoxemic respiratory failure. Etiology is likely secondary to possible pneumonia. The dakota estes is currently on BiPAP. We will continue to titrate off as tolerated. 5. Volume overload. Continue current medical management. We will continue ultrafiltration with hem odialysis. 6. Non-ST elevation myocardial infarction possible type 1 versus type 2. Continue current medical m anagement. Continue to trend serial troponins. Check a 2D echo. The patient may be started on nitr oglycerin drip. 7. Hypoglycemia. Continue current insulin regimen. 8. Metabolic acidosis. Plan is for hemodialysis on high bicarbonate bath. 9. Hypertension. Continue current blood pressure regimen. Continue ultrafiltration with dialysis. 10. History of gout. Thank you, Dr. Elizalde, for this interesting consult. It will be a pleasure to follow the patient wi th you throughout the hospital course. Dictated By: ALLISON GALLOWAY DO NR/NTS Conf#: [id number] DID#: [id number] CC: ESTELA GIVENS MD; ARETHA ELIZALDE MD; NORMA MARTINEZ MD;*EndCC*
[2018-12-24] MEDS: FAMOTIDINE 20 MG INJ IV SCH (11:36)
--- NOTE | 2018-12-24 13:45 | CONS ---
DATE OF ADMISSION: 12/24/2018 DATE OF CONSULTATION: TYPE OF CONSULTATION: Pulmonary. REASON FOR CONSULTATION: Shortness of breath. Thank you, Dr. Krishnamurthy, for this consultation. HISTORY OF PRESENT ILLNESS: This is a 78-year-old gentleman with history of end-stage renal failure on hemodialysis, who had his last dialysis on Monday, presented to the emergency room with increasing shortness of breath, orthopnea, PND and hypertensive urgency. He initially was managed with noninva sive positive pressure ventilation. He had emergent hemodialysis and states his breathing is somewha t better this morning. Initial concern was for ST elevation MT; however, initial EKG was not consist ent with this. PAST MEDICAL HISTORY: End-stage renal failure on hemodialysis, hypertension, gout, diabetes mellitus . SOCIAL HISTORY: He is nonsmoker, no alcohol, no history of drug use. ALLERGIES: LEVAQUIN. PHYSICAL EXAMINATION: GENERAL: Well-nourished, well-developed gentleman, comfortable at rest, talking in full and complete sentences on bilevel ventilation. VITAL SIGNS: Currently afebrile, pulse is 80, blood pressure 125/72, O2 saturation 96%, FiO2 of 30%. NECK: Supple. No JVD or lymphadenopathy. CARDIAC: S1, S2. No added sounds or murmurs. CHEST: Diminished air entry bilaterally. ABDOMEN: Soft, nontender. No guarding or rebound. EXTREMITIES: No cyanosis, clubbing or edema. NEUROLOGIC: Generalized weakness, but no focal deficits. LABORATORY DATA: White count 16.5, hemoglobin 11.8, platelets of 280. BUN 61, creatinine is 6.87. INR 0.94. ABG this morning: pH 7.33, pCO2 of 36, pO2 of 263. DIAGNOSTIC DATA: Chest x-ray showed mild pulmonary edema, no infiltrates or effusions. IMPRESSION AND PLAN: 1. Likely tracheobronchitis. 2. Volume overload. 3. End-stage renal failure on hemodialysis. 4. Hypoxemic respiratory failure. The patient will require: 1. Continue hemodialysis with volume removal. 2. Glycemic management. 3. Consider antibiotics for possible tracheobronchitis. 4. We will check procalcitonin level also. Dictated By: SLIME PACK MD SV/CAROLEE Conf#: [id number] DID#: [id number] CC: ESTELA GIVENS MD; ARETHA KRISHNAMURTHY MD;*[facility]*
[2018-12-24] MEDS: morphine 2 MG INJ IV PRN ×2 (17:05→21:06)
--- NOTE | 2018-12-24 17:24 | RADRPT ---
Echocardiogram Report Patient Name: AYDEE BARTONPatient ID: [id number] : 1940 (78y 9m)Study Date: 12/24/2018 10:58:59 AM Gender: MAccession #: [id number] Tech: Loy Simmons [facility] [place] Location: 111-A Ref.Physician: ARETHA ELIZALDE Height(Cm): BSA: Weight(Kg): Quality: AdequateOrder Physician: ARETHA ELIZALDE Account #: Procedures: Echocardiographic Report: Transthoracic echocardiogram with complete 2D, M-Mode, and doppler examination. Indications: NSTEMI. Measurements: 2D/M Mode Doppler Measurement Value Normal Range Measurement Value Normal Range LVIDd 2D 3.8 [ 4.2 - 5.8 ] cm AV Peak Van 0.9 [ 100.0 - 170.0 ] cm/sec LVIDs 2D 3.2 [ 2.5 - 4.0 ] cm AV Peak PG 3.0 [ 2.0 - 9.0 ] mmHg LVPWd 2D 0.9 [ 0.6 - 1.0 ] cm LVOT Peak Van 0.8 [ 70.0 - 110.0 ] cm/sec IVSd 2D 1.9 [ 0.6 - 1.0 ] cm LVOT Peak PG 3.0 [ 2.0 - 6.0 ] mmHg AoR Diam 2D 2.8 [ 2.6 - 3.4 ] cm MV E Peak Van 0.6 [ 60.0 - 130.0 ] cm/sec EDV 2D 61.6 [ 62.0 - 150.0 ] ml MV A Peak Van 0.6 [ 100.0 - 120.0 ] cm/sec ESV 2D 42.2 [ 21.0 - 61.0 ] ml MV E/A 1.1 [ 0.8 - 1.5 ] ratio EF 2D 31.5 [ 52.0 - 72.0 ] percent MV Decel Time 239 [ 104 - 258 ] msec LA Dimen 2D 3.8 [ 3.0 - 4.0 ] cm Lat E` Van 0.0 [ 10.0 - 15.0 ] cm/sec Lateral E/E` 16.7 [ 1.0 - 2.0 ] ratio MV E/A 1.1 [ 0.8 - 1.5 ] ratio TR Peak Van 2.5 [ 100.0 - 280.0 ] cm/sec TR Peak PG 25.0 mmHg RVSP 35.0 [ 10.0 - 36.0 ] mmHg Findings: Left Ventricle: Normal left ventricular cavity size. Sigmoid septum. Moderate global left ventricular systolic dysfunction. Ejection fraction is visually estimated at 35-40 %. Tissue Doppler/Mitral Doppler indices are consistent with impaired relaxation (Stage I diastolic dysfunction). Multiple segmental wall motion abnormalities. These segments of the LV are hypokinetic mid anterior segment, apical anterior segment, apical lateral segment, inferior apex segment, apex and apical septum. Right Ventricle: Mild right ventricular systolic dysfunction. Mild enlargement of right ventricle. Left Atrium: The left atrium is normal in size. Right Atrium: There is mild enlargement of right atrium. Mitral Valve: Mild mitral leaflet calcification. Mild mitral annular calcification. Trace mitral regurgitation. Aortic Valve: No hemodynamically significant aortic stenosis by doppler. Aortic cusps appear mildly calcified. Tricuspid Valve: Normal appearance of the tricuspid valve. Estimated peak PA systolic pressure 35 mmHg. There is mild tricuspid regurgitation. Pericardium: Normal pericardium with no significant pericardial effusion. Left pleural effusion seen. Aorta: Normal aortic root. IVC: Dilated IVC without respiratory collapse, however, patient on BI-PAP. Conclusions: Normal left ventricular cavity size. Sigmoid septum. Moderate global left ventricular systolic dysfunction. Ejection fraction is visually estimated at 35-40 %. Tissue Doppler/Mitral Doppler indices are consistent with impaired relaxation (Stage I diastolic dysfunction). Multiple segmental wall motion abnormalities. These segments of the LV are hypokinetic mid anterior segment, apical anterior segment, apical lateral segment, inferior apex segment, apex and apical septum. The left atrium is normal in size. Mild mitral leaflet calcification. Mild mitral annular calcification. Trace mitral regurgitation. No hemodynamically significant aortic stenosis by doppler. Aortic cusps appear mildly calcified. Normal appearance of the tricuspid valve. Estimated peak PA systolic pressure 35 mmHg. There is mild tricuspid regurgitation. Dilated IVC without respiratory collapse, however, patient on BI-PAP. Electronically Signed By: Thuan Marte 2018-12-24 17:23:46 PDT
--- NOTE | 2018-12-24 18:33 | CONS ---
Assessment/Plan Assessment/Plan Hospital Course (Demo Recall) Non-ST elevation myocardial infarction Hypertension Congestive heart failure acute on chronic secondary systolic heart failure Respiratory failure Renal failure on dialysis Diabetes Dyslipidemia History of gout Recommendations: Patient will be continued for now on heparin drip Aspirin will be continued. Plavix will be given 1 loading dose for now Carvedilol will be increased as tolerated. Hemodialysis to be done fluid to be removed as soon as possible. Plan for left heart catheterization coronary angiogram percutaneous coronary intervention after hemodialysis is finished. As soon as I can get an opening in the [employer]. Risks benefits alternatives of left heart catheterization anuel nary angiogram percutaneous coronary intervention discussed with the patient and his daughter in detail. Risks including but not limited to risk of infection vascular complication bleeding complication VA stroke arrhythmia renal failure etc. discussed with him. Consent has been obtained Thank you for his referral. We will continue to follow along with you NORMA MARTINEZ MD [facility] Consultation Date/Type/Reason Admit Date/Time December 24, 2018 at 04:04 Date of Consultation: December 24, 2018 Type of Consult Cardiology Reason for Consultation + trop Requesting Provider: ESTELA GIVENS Date/Time of Note DATE: 12/24/18 TIME: 18:23 Hx of Present Illness Interventional cardiology consultation note Chief complaint: Shortness of breath, abdominal pain Reason for consult: Abnormal troponin History of present illness: Thank you for this referral. History was obtained from the patient from gabbie talavera with his daughter discussion with the staff and physicians. Chart was reviewed. This is a pleasant 78-year-old male with a past medical history of end-stage renal disease on dialysis who presented last night and complains of shortness of breath. He also has abdominal pain but no left-sided chest pain or pressure. Last night the patient was noted to have significant shortness of breath. As a result, he came into the emergency room. Upon arrival, the patient had imaging studies including chest x-ray, which showed evidence of pulmonary venous hypertension and cardiomegaly. The patient was in hypertensive urgency with systolic pressures greater than 170. The patient was placed on nitroglycerin drip. The patient was also noted to be in respiratory failure and placed on BiPAP. There were no reports of any hemoptysis, hematemesis or hematochezia. Patient breathing has improved now. Currently on heparin drip. And is getting hemodialysis which was just started His troponin has been increasing. Cardiology was consulted PAST MEDICAL HISTORY: History of end-stage renal disease, history of hypertension, history of anemia, history of mineral bone disorder, History of diabetes. Patient denies any history of cardiac disorder to me PAST SURGICAL HISTORY: Status post AV fistula placement. FAMILY HISTORY: No family history of early coronary artery disease. His pare nts have had high blood pressure ALLERGIES: LEVAQUIN. MEDICATIONS: The patient's medications have been reviewed. Social history: Does not smoke or drink Review of system: Patient denies all others except for above-mentioned Past Medical History Home Meds Reported Medications Magnesium Oxide* (Mag-Oxide*) 400 Mg Tablet, 400 MG PO DAILY, TAB 12/24/18 Losartan-Hydrochlorothiazide (Losartan-HCTZ) 100-12.5 Mg Tab, 1 TAB ORAL DAILY 12/24/18 Tamsulosin Hcl* (Flomax*) 0.4 Mg Cap.er.24h, 0.4 MG PO HS, CAP 12/24/18 Carvedilol* (Carvedilol*) 6.25 Mg Tablet, 1 TAB ORAL BID 12/24/18 Ergocalciferol (Vitamin D2) (VITAMIN D2) 50,000 Unit Capsule, 1 CAP ORAL WEEKLY 12/24/18 Ranitidine Hcl* (Ranitidine Hcl*) 300 Mg Tablet, 300 MG PO DAILY, #30 TAB 12/24/18 Trazodone Hcl* (Trazodone Hcl*) 100 Mg Tablet, 100 MG PO QHS, #30 TAB 12/24/18 Allopurinol* (Allopurinol*) 300 Mg Tablet, 300 MG PO DAILY, TAB 12/24/18 Docusate Sodium* (Docusate Sodium*) 100 Mg Capsule, 100 MG PO DAILY PRN for CONSTIPATION, #30 CAP 12/24/18 Levocetirizine Dihydrochloride (LEVOCETIRIZINE DIHYDROCHLORIDE) 5 Mg Tablet, 1 TAB ORAL DAILY 12/24/18 Insulin Glargine* (Lantus*) 100 Unit/Ml Soln, 25-30 UNIT SC QHS, #1 VIAL 12/24/18 Sulfamethoxazole/Trimethoprim (Sulfamethoxazole-Tmp Ds Tablet) 1 Each Tablet, 1 TAB ORAL DAILY 12/24/18 Calcitriol* (Rocaltrol*) 0.25 Mcg Capsule, 0.25 MCG PO DAILY, CAP 12/24/18 Medications Current Medications Ipratropium [place] (Atrovent Hfa) 4 puff Q4H RESP THERAPY PRN INH SHORTNESS OF BREATH; Start 12/24/18 at 05:00 Nitroglycerin (Nitroglycerin (Sl Tab) 0.4 Mg) 1 tab Q5M PRN SL CHEST PAIN; Start 12/24/18 at 05:00 Acetaminophen (Tylenol Liquid) 650 mg Q6H PRN PO PAIN LEVEL 1-3 OR FEVER; Start 12/24/18 at 05:00 Morphine Sulfate (morphine) 2 mg Q4H PRN IV PAIN LEVEL 7-10 Last administered on 12/24/18at 17:05; Admin Dose 2 MG; Start 12/24/18 at 05:00 Levalbuterol (Xopenex Neb) 1.25 mg Q4H RESP THERAPY PRN HHN SHORTNESS OF BREATH; Start 12/24/18 at 05:00 Diagnostic Test (Pha) (Accu-Chek) 1 ea Q1H XX Last administered on 12/24/18at 18:18; Admin Dose 1 EA; Start 12/24/18 at 05:00 Insulin Human Regular 100 unit/ Sodium Chloride 100 ml @ 0 mls/hr PER PROTOCOL IV Last administered on 12/24/18at 06:01; Admin Dose 4 MLS/HR; Start 12/24/18 at 05:00 Miscellaneous Information (* Miscellaneous Pharmacy Order) Treatment of Hypoglycemia: 1.BG 51... Per protocol XX ; Start 12/24/18 at 05:00 Dextrose (D50w Syringe) 25 ml Q15M PRN IV .DECREASED GLUCOSE; Start 12/24/18 at 05:00 Dextrose (D50w Syringe) 50 ml Q15M PRN IV .DECREASED GLUCOSE; Start 12/24/18 at 05:00 Famotidine (Pepcid Iv) 20 mg DAILY IV Last administered on 12/24/18at 11:36; Admin Dose 20 MG; Start 12/24/18 at 09:00 Heparin Sodium (Porcine) (Heparin (1000 Units/ml)) 4,000 unit PER PROTOCOL PRN IV aPTT<47; Start 12/24/18 at 07:30 Heparin Sodium (Porcine) 250 ml @ 9.5 mls/hr PER PROTOCOL IV Last administered on 12/24/18at 11:57; Admin Dose 9.5 MLS/HR; Start 12/24/18 at 07:30 Calcitriol (Rocaltrol) 0.25 mcg DAILY PO ; Start 12/25/18 at 09:00 Docusate Sodium (Colace) 100 mg DAILY PRN PO CONSTIPATION; Start 12/24/18 at 09:30 Magnesium Oxide (Mag-Ox 400) 400 mg DAILY PO ; Start 12/25/18 at 09:00 Tamsulosin HCl (Flomax) 0.4 mg HS PO ; Start 12/24/18 at 21:00 Carvedilol (Coreg) 25 mg BID PO ; Start 12/24/18 at 21:00 Morphine Sulfate (morphine) 2 mg Q2H PRN IV SEVERE PAIN LEVEL 7-10; Start 12/24/18 at 16:30 Allergies: Coded Allergies: levofloxacin (Verified Allergy, Unknown, 12/24/18) Social History Alcohol Use: none Smoking Status: Never smoker Drug Use: none Exam/Review of Systems Vital Signs Vitals Vital Signs Date Temp Pulse Resp B/P (MAP) Pulse Ox O2 O2 Flow FiO2 Time Delivery Rate 12/24/18 82 16:00 12/24/18 100 50 15:03 12/24/18 2.0 14:00 12/24/18 19 08:40 12/24/18 125/72 08:00 (89) 12/24/18 96.6 BIPAP 07:50 Exam Exam General: Obese gentleman in no acute distress HEENT: NC/AT. pupils are equal. round. NECK: + JVD. no stridor. CV: RRR. systolic murmur; no gallop or rubs. PULM: no wheezing . + rhonchi. GI: SOFT, NT, ND, no rebound or guarding Extremity: trace B/L LE edema. no clubbing. neuro: awake and alert, OX3. Psych: calm and pleasant rectal: deferred EKG was personally reviewed shows sinus tachycardia. Anteroseptal infarct age undetermined. The vertical conduction delay Echocardiogram was personally reviewed which shows: Normal left ventricular cavity size. Sigmoid septum. Moderate global left ventricular systolic dysfunction. Ejection fraction is visually estimated at 35-40 %. Tissue Doppler/Mitral Doppler indices are consistent with impaired relaxation (Stage I diastolic dysfunction). Multiple segmental wall motion abnormalities. These segments of the LV are hypok inetic mid anterior segment, apical anterior segment, apical lateral segment, inferior apex segment, apex and apical septum. The left atrium is normal in size. Mild mitral leaflet calcification. Mild mitral annular calcification. Trace mitral regurgitation. No hemodynamically significant aortic stenosis by doppler. Aortic cusps appear mildly calcified. Normal appearance of the tricuspid valve. Estimated peak PA systolic pressure 35 mmHg. There is mild tricuspid regurgitation. Dilated IVC without respiratory collapse, however, patient on BI-PAP. Labs Result Diagram: 12/24/18 0807 12/24/18 1647 Results 24hrs Laboratory Tests Test 12/24/18 03:12 12/24/18 03:19 12/24/18 03:20 12/24/18 04:10 Bedside Glucose 409 *H Blood Gas Blood arterial Specimen Source Arterial Blood 12/24/2018 4:25:0 Date Drawn 7 AM Arterial Blood pH 7.333 L (Temp corrected) Arterial Blood 36.1 pCO2 (Temp correct) Arterial Blood 263.9 H pO2 (Temp corrected) Arterial Blood 18.7 L HCO3 Arterial Blood -6.4 L Base Excess Arterial Blood 99.3 Oxygen Saturation Inocencio Test ACCEPTAB Arterial Blood Right Radial Gas Puncture Site Arterial 0 Blood Carboxyhemo globin Arterial Blood 0.4 Methemoglobin Blood Gas A-a O2 413.0 H Differential Oxyhemoglobin 98.9 Percent Blood Gas 37.0 Temperature Blood Gas 20.0 Respiration Rate Blood Gas Actual 22 Respiration Rate Blood Gas MASK - BIPAP Modality FiO2 100.0 Blood Gas 15/5 IPAP/EPAP Ratio Blood Gas MG Notified Whom Blood Gas 12/24/2018 4:36:1 Notified Time 0 AM White Blood Count 21.6 H Red Blood Count 4.19 L Hemoglobin 12.3 L Hematocrit 40.4 L Mean Corpuscular 96.4 Volume Mean Corpuscular 29.4 Hemoglobin Mean Corpuscular 30.4 L Hemoglobin Concen t Red Cell 14.3 Distribution Width Platelet Count 456 H Mean Platelet 10.6 H Volume Immature 0.800 H Granulocytes % Neutrophils % 55.4 Segmented 69 Neutrophils % (Manual) Lymphocytes % 35.3 Lymphocytes % 23 (Manual) Monocytes % 4.0 Monocytes % 4 (Manual) Eosinophils % 3.9 Eosinophils % 3 (Manual) Basophils % 0.6 Basophils % 1 (Manual) Nucleated Red 0.0 Blood Cells % Immature 0.170 H Granulocytes # Neutrophils # 11.9 H Lymphocytes 4.9 H (Manual) Lymphocytes # 7.6 H Monocytes # 0.9 Monocytes # 0.8 (Manual) Eosinophils # 0.8 H Basophils # 0.1 Basophils # 0.2 H (Manual) Nucleated Red 0.0 Blood Cells # Platelet Estimate NORMAL Polychromasia 1+ Poikilocytosis 2+ Sodium Level 142 Potassium Level 4.8 Chloride Level 105 Carbon Dioxide 16 L Level Anion Gap 21 H Blood Urea 56 H Nitrogen Creatinine 6.25 H Est Glomerular Filtrat Rate mL/min Glucose Level 419 *H Calcium Level 9.5 Total Bilirubin 0.4 Direct Bilirubin 0.00 Indirect 0.4 Bilirubin Aspartate Amino 35 Transf (AST/SGOT) Alanine 7 L Aminotransferase (ALT/SGPT) Alkaline 91 Phosphatase Troponin I 0.201 *H B-Type 25698 H Natriuretic Peptide Total Protein 8.4 H Albumin 4.4 Globulin 4.00 H Albumin/Globulin 1.10 Ratio Lipase 174 Prothrombin Time 12.9 Prothrombin Time 1.0 Ratio INR International 0.96 Normalized Ratio Activated 24.3 Partial Thrombopl ast Time Hepatitis B NEGATIVE Surface Antigen Hepatitis B Core NEGATIVE Total Antibody Hepatitis C NEGATIVE Antibody Test 12/24/18 05:31 12/24/18 05:58 12/24/18 07:07 12/24/18 07:58 Lactic Acid Level 2.0 Creatine Kinase 60 Creatine Kinase 5.7 Index Creatinine Kinase 3.43 H MB (Mass) Troponin I 0.507 *H Bedside Glucose 338 H 325 H 268 H Test 12/24/18 08:07 12/24/18 09:18 12/24/18 10:25 12/24/18 10:59 White Blood Count 16.5 #H Red Blood Count 4.03 L Hemoglobin 11.8 L Hematocrit 37.3 L Mean Corpuscular 92.6 Volume Mean Corpuscular 29.3 Hemoglobin Mean Corpuscular 31.6 L Hemoglobin Concen t Red Cell 13.9 Distribution Width Platelet Count 280 # Mean Platelet 10.3 Volume Immature 0.700 H Granulocytes % Neutrophils % 86.4 H Lymphocytes % 7.0 L Monocytes % 5.5 Eosinophils % 0.2 Basophils % 0.2 Nucleated Red 0.0 Blood Cells % Immature 0.110 H Granulocytes # Neutrophils # 14.2 H Lymphocytes # 1.2 Monocytes # 0.9 Eosinophils # 0.0 Basophils # 0.0 Nucleated Red 0.0 Blood Cells # Prothrombin Time 12.7 Prothrombin Time 1.0 Ratio INR International 0.94 Normalized Ratio Activated 28.5 Partial Thrombopl ast Time Sodium Level 143 Potassium Level 4.4 Chloride Level 101 Carbon Dioxide 26 # Level Anion Gap 16 H Blood Urea 61 H Nitrogen Creatinine 6.87 H Est Glomerular Filtrat Rate mL/min Glucose Level 277 #H Calcium Level 9.8 Total Bilirubin 0.4 Direct Bilirubin 0.00 Indirect 0.4 Bilirubin Aspartate Amino 28 Transf (AST/SGOT) Alanine 10 L Aminotransferase (ALT/SGPT) Alkaline 85 Phosphatase Total Protein 7.7 Albumin 4.3 Globulin 3.40 H Albumin/Globulin 1.26 Ratio Bedside Glucose 184 144 Lactic Acid Level 3.6 *H Creatine Kinase 95 Creatine Kinase 7.9 Index Creatinine Kinase 7.50 H MB (Mass) Troponin I 1.840 *H Test 12/24/18 11:46 12/24/18 11:54 12/24/18 13:13 12/24/18 14:50 Bedside Glucose 130 128 105 Sodium Level 143 Potassium Level 4.5 Chloride Level 103 Carbon Dioxide 27 Level Anion Gap 13 Blood Urea 62 H Nitrogen Creatinine 7.11 H Est Glomerular Filtrat Rate mL/min Glucose Level 138 # Calcium Level 9.9 Total Bilirubin 0.4 Direct Bilirubin 0.00 Indirect 0.4 Bilirubin Aspartate Amino 29 Transf (AST/SGOT) Alanine 18 Aminotransferase (ALT/SGPT) Alkaline 89 Phosphatase Total Protein 7.7 Albumin 4.0 Globulin 3.70 H Albumin/Globulin 1.08 Ratio Procalcitonin 4.46 H Test 12/24/18 16:47 12/24/18 17:10 12/24/18 18:16 Sodium Level 142 Potassium Level 4.2 Chloride Level 102 Carbon Dioxide 27 Level Anion Gap 13 Blood Urea 63 H Nitrogen Creatinine 7.21 H Est Glomerular Filtrat Rate mL/min Glucose Level 136 Calcium Level 9.7 Total Bilirubin 0.5 Direct Bilirubin 0.00 Indirect 0.5 Bilirubin Aspartate Amino 32 Transf (AST/SGOT) Alanine 10 L Aminotransferase (ALT/SGPT) Alkaline 87 Phosphatase Creatine Kinase 102 Creatine Kinase 6.4 Index Creatinine Kinase 6.52 H MB (Mass) Troponin I 2.680 *H Total Protein 7.4 Albumin 4.1 Globulin 3.30 H Albumin/Globulin 1.24 Ratio Bedside Glucose 107 120 Medications Medications Current Medications Ipratropium [place] (Atrovent Hfa) 4 puff Q4H RESP THERAPY PRN INH SHORTNESS OF BREATH; Start 12/24/18 at 05:00 Nitroglycerin (Nitroglycerin (Sl Tab) 0.4 Mg) 1 tab Q5M PRN SL CHEST PAIN; Start 12/24/18 at 05:00 Acetaminophen (Tylenol Liquid) 650 mg Q6H PRN PO PAIN LEVEL 1-3 OR FEVER; Start 12/24/18 at 05:00 Morphine Sulfate (morphine) 2 mg Q4H PRN IV PAIN LEVEL 7-10 Last administered on 12/24/18at 17:05; Admin Dose 2 MG; Start 12/24/18 at 05:00 Levalbuterol (Xopenex Neb) 1.25 mg Q4H RESP THERAPY PRN HHN SHORTNESS OF BREATH; Start 12/24/18 at 05:00 Diagnostic Test (Pha) (Accu-Chek) 1 ea Q1H XX Last administered on 12/24/18at 18:18; Admin Dose 1 EA; Start 12/24/18 at 05:00 Insulin Human Regular 100 unit/ Sodium Chloride 100 ml @ 0 mls/hr PER PROTOCOL IV Last administered on 12/24/18at 06:01; Admin Dose 4 MLS/HR; Start 12/24/18 at 05:00 Miscellaneous Information (* Miscellaneous Pharmacy Order) Treatment of Hypoglycemia: 1.BG 51... Per protocol XX ; Start 12/24/18 at 05:00 Dextrose (D50w Syringe) 25 ml Q15M PRN IV .DECREASED GLUCOSE; Start 12/24/18 at 05:00 Dextrose (D50w Syringe) 50 ml Q15M PRN IV .DECREASED GLUCOSE; Start 12/24/18 at 05:00 Famotidine (Pepcid Iv) 20 mg DAILY IV Last administered on 12/24/18at 11:36; Admin Dose 20 MG; Start 12/24/18 at 09:00 Heparin Sodium (Porcine) (Heparin (1000 Units/ml)) 4,000 unit PER PROTOCOL PRN IV aPTT<47; Start 12/24/18 at 07:30 Heparin Sodium (Porcine) 250 ml @ 9.5 mls/hr PER PROTOCOL IV Last administered on 12/24/18at 11:57; Admin Dose 9.5 MLS/HR; Start 12/24/18 at 07:30 Calcitriol (Rocaltrol) 0.25 mcg DAILY PO ; Start 12/25/18 at 09:00 Docusate Sodium (Colace) 100 mg DAILY PRN PO CONSTIPATION; Start 12/24/18 at 09:30 Magnesium Oxide (Mag-Ox 400) 400 mg DAILY PO ; Start 12/25/18 at 09:00 Tamsulosin HCl (Flomax) 0.4 mg HS PO ; Start 12/24/18 at 21:00 Carvedilol (Coreg) 25 mg BID PO ; Start 12/24/18 at 21:00 Morphine Sulfate (morphine) 2 mg Q2H PRN IV SEVERE PAIN LEVEL 7-10; Start 12/24/18 at 16:30 NORMA MARTINEZ MD December 24, 2018 18:33
[2018-12-24] MEDS ORDERED: CLOPIDOGREL 75 MG TAB PO ONE (19:00)
[2018-12-24] MEDS: TAMSULOSIN (SR) 0.4 MG CAP PO SCH (22:14)
[2018-12-24] MEDS: ASPIRIN (EC) 81 MG TAB PO SCH (22:15)
[2018-12-25] VITALS (53 sets, daily range): BP systolic 83–155; BP diastolic 44–107; PULSE 61–85; RESP 12–33
[2018-12-25] MEDS: ACCU-CHEK XX SCH ×23 (00:27→23:00)
[2018-12-25] MEDS ORDERED: ZOLPIDEM 5 MG TAB ONE (01:10)
[2018-12-25] MEDS: ZOLPIDEM 5 MG TAB PO PRN ×2 (01:12→03:58)
--- NOTE | 2018-12-25 08:11 | PN ---
DATE: 12/25/2018 SUBJECTIVE: The patient is clinically improving. The patient had hemodialysis yesterday, tolerated well, 2 liters removed. No other events noted. OBJECTIVE: VITAL SIGNS: Blood pressure is 83/47, respirations 18, pulse 62, temperature 98.6. HEENT: Head is normocephalic. NECK: Supple. HEART: Regular rate. LUNGS: Show diminished breath sounds at the base. ABDOMEN: Soft, nontender to palpation without rebound or guarding. EXTREMITIES: Negative for clubbing, cyanosis, no edema. DERMATOLOGIC: No rashes. MUSCULOSKELETAL: No joint effusion. NEUROLOGIC: No change in exam. MEDICATIONS: Reviewed. LABORATORY DATA: Reviewed. IMAGING STUDIES: Reviewed. ASSESSMENT AND PLAN: 1. End-stage renal disease. The patient had hemodialysis yesterday, tolerated well. Plan is for di alysis again tomorrow. 2. Anemia. Continue to monitor hemoglobin and hematocrit levels. Continue Epogen as needed. 3. Mineral bone disorder, monitor calcium and phosphorus levels. 4. Acute hypoxemic respiratory failure, improved. Etiology may be secondary to volume overload. Th e patient is currently on nasal cannula. Continue to monitor. 5. Volume overload. Continue ultrafiltration with dialysis. 6. Non-ST elevation myocardial infarction. The patient is on heparin drip, pending cardiac catheter ization. Continue to monitor. Follow up with cardiology. 7. Hypoglycemia/diabetes. Continue current insulin regimen. 8. Metabolic acidosis, resolved. 9. Hypertension, improved. The patient is currently hypotensive. 10. History of gout. Dictated By: ALLISON GALLOWAY DO NR/NTS Conf#: [id number] DID#: [id number] CC: SLIME PACK MD; ESTELA GVIENS MD; ARETHA ELIZALDE MD;*EndCC*
[2018-12-25] MEDS: MAGNESIUM OXIDE 400 MG TAB PO SCH (09:04)
[2018-12-25] MEDS: FAMOTIDINE 20 MG INJ IV SCH (09:04)
[2018-12-25] MEDS: CALCITRIOL 0.25 MCG CAP PO SCH (09:04)
[2018-12-25] MEDS: ASPIRIN (EC) 81 MG TAB PO SCH (09:04)
--- NOTE | 2018-12-25 09:07 | CONS ---
Assessment/Plan Assessment/Plan Assessment/Plan (Daily) Chest x-ray showing mild interstitial prominence. Assessment and recommendations; 1. Patient admitted with what appears to be acute tracheobronchitis with possibly some element of minimal left lower lobe pneumonia with interval clinical improvement. Leukocytosis is improving. 2. End-stage renal disease, on hemodialysis. 3. Mild CHF. 4. History of peripheral vascular disease. 5. History of BPH. 6. Diabetes. Continue current supportive care. Consider transfer to medical floor. Consultation Date/Type/Reason Admit Date/Time December 24, 2018 at 04:04 Initial Consult Date 12/24/18 Type of Consult Pulmonary/critical care Reason for Consultation Patient's condition is stable. Has remained hemodynamically stable. General exam; elderly male, awake and alert. Currently in no distress. Requesting Provider: ESTELA GIVENS Date/Time of Note DATE: 12/25/18 TIME: 09:05 Exam/Review of Systems Exam Vitals Vital Signs Date Temp Pulse Resp B/P (MAP) Pulse Ox O2 O2 Flow FiO2 Time Delivery Rate 12/25/18 100 08:50 12/25/18 61 30 85/57 (66) 08:00 12/25/18 97.9 Nasal 3.0 07:00 Cannula 12/24/18 50 15:03 Intake and Output 12/24/18 12/24/18 12/25/18 1515:00 23:00 07:00 IntakeIntake Total 24.0 ml 73.5 ml 131.0 ml OutputOutput Total 740 ml 2600 ml 30 ml BalanceBalance -716.0 ml -2526.5 ml 101.0 ml Exam H EENT exam; supple neck, no JVD. No lymphadenopathy. Midline trachea. No thyromegaly. Patient has fair dentition. No neck masses. Chest exam; diminished breath sounds bilaterally. S1-S2 audible, no murmurs. Regular rhythm. Abdomen exam; soft, nontender. No organomegaly. Bowel sounds audible. Extremity exam; no peripheral edema. CLASSIFICATION AND TREATMENT DIRECTOR exam; no focal deficit. Results Result Diagram: 12/25/18 0503 12/25/18 0503 Results 24hrs Laboratory Tests Test 12/24/18 09:18 12/24/18 10:25 12/24/18 10:59 12/24/18 11:46 Bedside Glucose 184 144 130 Lactic Acid Level 3.6 *H Creatine Kinase 95 Creatine Kinase 7.9 Index Creatinine Kinase 7.50 H MB (Mass) Troponin I 1.840 *H Test 12/24/18 11:54 12/24/18 13:13 12/24/18 14:50 12/24/18 16:47 Sodium Level 143 142 Potassium Level 4.5 4.2 Chloride Level 103 102 Carbon Dioxide 27 27 Level Anion Gap 13 13 Blood Urea 62 H 63 H Nitrogen Creatinine 7.11 H 7.21 H Est Glomerular Filtrat Rate mL/min Glucose Level 138 # 136 Calcium Level 9.9 9.7 Total Bilirubin 0.4 0.5 Direct Bilirubin 0.00 0.00 Indirect 0.4 0.5 Bilirubin Aspartate Amino 29 32 Transf (AST/SGOT) Alanine 18 10 L Aminotransferase (ALT/SGPT) Alkaline 89 87 Phosphatase Total Protein 7.7 7.4 Albumin 4.0 4.1 Globulin 3.70 H 3.30 H Albumin/Globulin 1.08 1.24 Ratio Procalcitonin 4.46 H Bedside Glucose 128 105 Creatine Kinase 102 Creatine Kinase 6.4 Index Creatinine Kinase 6.52 H MB (Mass) Troponin I 2.680 *H Test 12/24/18 17:10 12/24/18 18:16 12/24/18 18:23 12/24/18 22:24 Bedside Glucose 107 120 104 Activated 61.4 H Partial Thrombopl ast Time Test 12/25/18 00:27 12/25/18 00:54 12/25/18 02:19 12/25/18 04:09 Bedside Glucose 115 117 125 Activated 58.3 H Partial Thrombopl ast Time Test 12/25/18 05:03 12/25/18 06:07 12/25/18 07:00 12/25/18 08:10 White Blood Count 11.9 #H Red Blood Count 3.91 L Hemoglobin 11.4 L Hematocrit 35.4 L Mean Corpuscular 90.5 Volume Mean Corpuscular 29.2 Hemoglobin Mean Corpuscular 32.2 Hemoglobin Concen t Red Cell 14.3 Distribution Width Platelet Count 292 Mean Platelet 10.2 Volume Immature 0.300 Granulocytes % Neutrophils % 79.7 H Lymphocytes % 11.2 L Monocytes % 7.4 Eosinophils % 1.1 Basophils % 0.3 Nucleated Red 0.0 Blood Cells % Immature 0.040 H Granulocytes # Neutrophils # 9.5 H Lymphocytes # 1.3 Monocytes # 0.9 Eosinophils # 0.1 Basophils # 0.0 Nucleated Red 0.0 Blood Cells # Prothrombin Time 12.9 Prothrombin Time 1.0 Ratio INR International 0.96 Normalized Ratio Activated 44.7 H Partial Thrombopl ast Time Sodium Level 140 Potassium Level 4.3 Chloride Level 98 Carbon Dioxide 30 Level Anion Gap 12 Blood Urea 39 #H Nitrogen Creatinine 5.12 #H Est Glomerular Filtrat Rate mL/min Glucose Level 121 Calcium Level 9.7 Magnesium Level 2.1 Total Bilirubin 0.5 Direct Bilirubin 0.00 Indirect 0.5 Bilirubin Aspartate Amino 46 Transf (AST/SGOT) Alanine 20 Aminotransferase (ALT/SGPT) Alkaline 85 Phosphatase Creatine Kinase 175 Creatine Kinase 8.4 Index Creatinine Kinase 14.70 H MB (Mass) Troponin I 4.110 *H Total Protein 7.1 Albumin 4.0 Globulin 3.10 Albumin/Globulin 1.29 Ratio Triglycerides 95 Level Cholesterol Level 177 LDL Cholesterol, 95 Calculated HDL Cholesterol 63 Cholesterol/HDL 2.8 Ratio Thyroid 1.040 Stimulating Hormone (TSH) Free Thyroxine 1.66 Bedside Glucose 111 122 Blood Gas Blood arterial Specimen Source Arterial Blood 12/25/2018 7:16:0 Date Drawn 9 AM Arterial Blood pH 7.523 H (Temp corrected) Arterial Blood 34.7 L pCO2 (Temp correct) Arterial Blood 84.0 pO2 (Temp corrected) Arterial Blood 27.9 H HCO3 Arterial Blood 5.1 H Base Excess Arterial Blood 96.4 Oxygen Saturation Inocencio Test N/A Arterial Blood Right Brachial Gas Puncture Site Arterial 0.3 Blood Carboxyhemo globin Arterial Blood 0.1 Methemoglobin Blood Gas A-a O2 89.1 H Differential Oxyhemoglobin 96.0 Percent Blood Gas 37.0 Temperature Blood Gas NASAL CANNULA Modality FiO2 30.0 Blood Gas TM Notified Whom Blood Gas 12/25/2018 7:41:4 Notified Time 0 AM Medications Medication Current Medications Ipratropium [place] (Atrovent Hfa) 4 puff Q4H RESP THERAPY PRN INH SHORTNESS OF BREATH; Start 12/24/18 at 05:00 Nitroglycerin (Nitroglycerin (Sl Tab) 0.4 Mg) 1 tab Q5M PRN SL CHEST PAIN; Start 12/24/18 at 05:00 Acetaminophen (Tylenol Liquid) 650 mg Q6H PRN PO PAIN LEVEL 1-3 OR FEVER; Start 12/24/18 at 05:00 Morphine Sulfate (morphine) 2 mg Q4H PRN IV PAIN LEVEL 7-10 Last administered on 12/24/18at 21:06; Admin Dose 2 MG; Start 12/24/18 at 05:00 Levalbuterol (Xopenex Neb) 1.25 mg Q4H RESP THERAPY PRN HHN SHORTNESS OF BREATH; Start 12/24/18 at 05:00 Diagnostic Test (Pha) (Accu-Chek) 1 ea Q1H XX Last administered on 12/25/18at 08:17; Admin Dose 1 EA; Start 12/24/18 at 05:00 Insulin Human Regular 100 unit/ Sodium Chloride 100 ml @ 0 mls/hr PER PROTOCOL IV Last administered on 12/24/18at 06:01; Admin Dose 4 MLS/HR; Start 12/24/18 at 05:00 Miscellaneous Information (* Miscellaneous Pharmacy Order) Treatment of Hypoglycemia: 1.BG 51... Per protocol XX ; Start 12/24/18 at 05:00 Dextrose (D50w Syringe) 25 ml Q15M PRN IV .DECREASED GLUCOSE; Start 12/24/18 at 05:00 Dextrose (D50w Syringe) 50 ml Q15M PRN IV .DECREASED GLUCOSE; Start 12/24/18 at 05:00 Famotidine (Pepcid Iv) 20 mg DAILY IV Last administered on 12/24/18at 11:36; Admin Dose 20 MG; Start 12/24/18 at 09:00 Heparin Sodium (Porcine) (Heparin (1000 Units/ml)) 4,000 unit PER PROTOCOL PRN IV aPTT<47 Last administered on 12/25/18at 06:25; Admin Dose 4,000 UNIT; Start 12/24/18 at 07:30 Heparin Sodium (Porcine) 250 ml @ 9.5 mls/hr PER PROTOCOL IV Last administered on 12/24/18at 11:57; Admin Dose 9.5 MLS/HR; Start 12/24/18 at 07:30 Calcitriol (Rocaltrol) 0.25 mcg DAILY PO ; Start 12/25/18 at 09:00 Docusate Sodium (Colace) 100 mg DAILY PRN PO CONSTIPATION; Start 12/24/18 at 09:30 Magnesium Oxide (Mag-Ox 400) 400 mg DAILY PO ; Start 12/25/18 at 09:00 Tamsulosin HCl (Flomax) 0.4 mg HS PO Last administered on 12/24/18at 22:14; Admin Dose 0.4 MG; Start 12/24/18 at 21:00 Carvedilol (Coreg) 25 mg BID PO Last administered on 12/24/18at 22:17; Admin Dose 25 MG; Start 12/24/18 at 21:00 Morphine Sulfate (morphine) 2 mg Q2H PRN IV SEVERE PAIN LEVEL 7-10; Start 12/24/18 at 16:30 Aspirin (Halfprin) 81 mg DAILY PO Last administered on 12/24/18at 22:15; Admin Dose 81 MG; Start 12/24/18 at 19:00 Zolpidem Tartrate (Ambien) 5 mg HS MAY REPEAT X 1 PRN PO INSOMNIA Last administered on 12/25/18at 03:58; Admin Dose 5 MG; Start 12/25/18 at 01:00 BARBRA RODNEY December 25, 2018 09:07
[2018-12-25] MEDS: ACETAMINOPHEN 650MG/20.3ML CUP PO PRN ×2 (10:41→20:00)
--- NOTE | 2018-12-25 10:43 | CONS ---
Consult Date/Type/Reason Admit Date/Time December 24, 2018 at 04:04 Initial Consult Date 12/24/18 Requesting Provider: ESTELA GIVENS Date/Time of Note DATE: 12/25/18 TIME: 10:41 Subjective Interventional cardiology follow-up progress note Subjective: Discussed with the staff and telemetry was reviewed patient remains in sinus rhythm. He denies any chest pain or pressure today. Complains of severe headache now. Patient is currently off of nitroglycerin drip but currently on insulin drip in the ICU still Objective: General: Obese gentleman in no acute distress HEENT: NC/AT. pupils are equal. round. NECK: + JVD. no stridor. CV: RRR. systolic murmur; no gallop or rubs. PULM: no wheezing . + rhonchi. GI: SOFT, NT, ND, no rebound or guarding Extremity: trace B/L LE edema. no clubbing. neuro: awake and alert, OX3. Psych: calm and pleasant rectal: deferred EKG was personally reviewed shows sinus tachycardia. Anteroseptal infarct age undetermined. The vertical conduction delay Echocardiogram was personally reviewed which shows: Normal left ventricular cavity size. Sigmoid septum. Moderate global left ventricular systolic dysfunction. Ejection fraction is visually estimated at 35-40 %. Tissue Doppler/Mitral Doppler indices are consistent with impaired relaxation (Stage I diastolic dysfunction). Multiple segmental wall motion abnormalities. These segments of the LV are hypokinetic mid anterior segment, apical anterior segment, apical lateral segment, inferior apex segment, apex and apical septum. The left atrium is normal in size. Mild mitral leaflet calcification. Mild mitral annular calcification. Trace mitral regurgitation. No hemodynamically significant aortic stenosis by doppler. Aortic cusps appear mildly calcified. Normal appearance of the tricuspid valve. Estimated peak PA systolic pressure 35 mmHg. There is mild tricuspid regurgitation. Dilated IVC without respiratory collapse, however, patient on BI-PAP. Objective Vitals Vital Signs Date Temp Pulse Resp B/P (MAP) Pulse Ox O2 O2 Flow FiO2 Time Delivery Rate 12/25/18 100 08:50 12/25/18 62 08:00 12/25/18 30 85/57 (66) 08:00 12/25/18 97.9 Nasal 3.0 07:00 Cannula 12/24/18 50 15:03 Intake and Output 12/24/18 12/24/18 12/25/18 1515:00 23:00 07:00 IntakeIntake Total 24.0 ml 73.5 ml 131.0 ml OutputOutput Total 740 ml 2600 ml 30 ml BalanceBalance -716.0 ml -2526.5 ml 101.0 ml Results/Medications Result Diagram: 12/25/18 0503 12/25/18 0503 Results 24 hrs Laboratory Tests Test 12/24/18 10:59 12/24/18 11:46 12/24/18 11:54 12/24/18 13:13 Lactic Acid Level 3.6 *H Creatine Kinase 95 Creatine Kinase 7.9 Index Creatinine Kinase 7.50 H MB (Mass) Troponin I 1.840 *H Bedside Glucose 130 128 Sodium Level 143 Potassium Level 4.5 Chloride Level 103 Carbon Dioxide 27 Level Anion Gap 13 Blood Urea 62 H Nitrogen Creatinine 7.11 H Est Glomerular Filtrat Rate mL/min Glucose Level 138 # Calcium Level 9.9 Total Bilirubin 0.4 Direct Bilirubin 0.00 Indirect 0.4 Bilirubin Aspartate Amino 29 Transf (AST/SGOT) Alanine 18 Aminotransferase (ALT/SGPT) Alkaline 89 Phosphatase Total Protein 7.7 Albumin 4.0 Globulin 3.70 H Albumin/Globulin 1.08 Ratio Procalcitonin 4.46 H Test 12/24/18 14:50 12/24/18 16:47 12/24/18 17:10 12/24/18 18:16 Bedside Glucose 105 107 120 Sodium Level 142 Potassium Level 4.2 Chloride Level 102 Carbon Dioxide 27 Level Anion Gap 13 Blood Urea 63 H Nitrogen Creatinine 7.21 H Est Glomerular Filtrat Rate mL/min Glucose Level 136 Calcium Level 9.7 Total Bilirubin 0.5 Direct Bilirubin 0.00 Indirect 0.5 Bilirubin Aspartate Amino 32 Transf (AST/SGOT) Alanine 10 L Aminotransferase (ALT/SGPT) Alkaline 87 Phosphatase Creatine Kinase 102 Creatine Kinase 6.4 Index Creatinine Kinase 6.52 H MB (Mass) Troponin I 2.680 *H Total Protein 7.4 Albumin 4.1 Globulin 3.30 H Albumin/Globulin 1.24 Ratio Test 12/24/18 18:23 12/24/18 22:24 12/25/18 00:27 12/25/18 00:54 Activated 61.4 H 58.3 H Partial Thrombopl ast Time Bedside Glucose 104 115 Test 5/21/19 02:19 12/25/18 04:09 12/25/18 04:15 12/25/18 05:03 Bedside Glucose 117 125 Urine Color YELLOW Urine Clarity CLOUDY A Urine pH 6.0 Urine Specific 1.014 [place] Urine Ketones TRACE A Urine Nitrite NEGATIVE Urine Bilirubin NEGATIVE Urine NEGATIVE Urobilinogen Urine Leukocyte TRACE A Esterase Urine Microscopic 173 H RBC Urine Microscopic 11 H WBC Urine Hemoglobin 3+ H Urine Glucose NEGATIVE Urine Total 3+ H Protein White Blood Count 11.9 #H Red Blood Count 3.91 L Hemoglobin 11.4 L Hematocrit 35.4 L Mean Corpuscular 90.5 Volume Mean Corpuscular 29.2 Hemoglobin Mean Corpuscular 32.2 Hemoglobin Concen t Red Cell 14.3 Distribution Width Platelet Count 292 Mean Platelet 10.2 Volume Immature 0.300 Granulocytes % Neutrophils % 79.7 H Lymphocytes % 11.2 L Monocytes % 7.4 Eosinophils % 1.1 Basophils % 0.3 Nucleated Red 0.0 Blood Cells % Immature 0.040 H Granulocytes # Neutrophils # 9.5 H Lymphocytes # 1.3 Monocytes # 0.9 Eosinophils # 0.1 Basophils # 0.0 Nucleated Red 0.0 Blood Cells # Prothrombin Time 12.9 Prothrombin Time 1.0 Ratio INR International 0.96 Normalized Ratio Activated 44.7 H Partial Thrombopl ast Time Sodium Level 140 Potassium Level 4.3 Chloride Level 98 Carbon Dioxide 30 Level Anion Gap 12 Blood Urea 39 #H Nitrogen Creatinine 5.12 #H Est Glomerular Filtrat Rate mL/min Glucose Level 121 Calcium Level 9.7 Magnesium Level 2.1 Total Bilirubin 0.5 Direct Bilirubin 0.00 Indirect 0.5 Bilirubin Aspartate Amino 46 Transf (AST/SGOT) Alanine 20 Aminotransferase (ALT/SGPT) Alkaline 85 Phosphatase Creatine Kinase 175 Creatine Kinase 8.4 Index Creatinine Kinase 14.70 H MB (Mass) Troponin I 4.110 *H Total Protein 7.1 Albumin 4.0 Globulin 3.10 Albumin/Globulin 1.29 Ratio Triglycerides 95 Level Cholesterol Level 177 LDL Cholesterol, 95 Calculated HDL Cholesterol 63 Cholesterol/HDL 2.8 Ratio Thyroid 1.040 Stimulating Hormone (TSH) Free Thyroxine 1.66 Test 12/25/18 06:07 12/25/18 07:00 12/25/18 08:10 12/25/18 10:20 Bedside Glucose 111 122 109 Blood Gas Blood arterial Specimen Source Arterial Blood 12/25/2018 7:16:0 Date Drawn 9 AM Arterial Blood pH 7.523 H (Temp corrected) Arterial Blood 34.7 L pCO2 (Temp correct) Arterial Blood 84.0 pO2 (Temp corrected) Arterial Blood 27.9 H HCO3 Arterial Blood 5.1 H Base Excess Arterial Blood 96.4 Oxygen Saturation Inocencio Test N/A Arterial Blood Right Brachial Gas Puncture Site Arterial 0.3 Blood Carboxyhemo globin Arterial Blood 0.1 Methemoglobin Blood Gas A-a O2 89.1 H Differential Oxyhemoglobin 96.0 Percent Blood Gas 37.0 Temperature Blood Gas NASAL CANNULA Modality FiO2 30.0 Blood Gas TM Notified Whom Blood Gas 12/25/2018 7:41:4 Notified Time 0 AM Home Meds Reported Medications Magnesium Oxide* (Mag-Oxide*) 400 Mg Tablet, 400 MG PO DAILY, TAB 12/24/18 Losartan-Hydrochlorothiazide (Losartan-HCTZ) 100-12.5 Mg Tab, 1 TAB ORAL DAILY 12/24/18 Tamsulosin Hcl* (Flomax*) 0.4 Mg Cap.er.24h, 0.4 MG PO HS, CAP 12/24/18 Carvedilol* (Carvedilol*) 6.25 Mg Tablet, 1 TAB ORAL BID 12/24/18 Ergocalciferol (Vitamin D2) (VITAMIN D2) 50,000 Unit Capsule, 1 CAP ORAL WEEKLY 12/24/18 Ranitidine Hcl* (Ranitidine Hcl*) 300 Mg Tablet, 300 MG PO DAILY, #30 TAB 12/24/18 Trazodone Hcl* (Trazodone Hcl*) 100 Mg Tablet, 100 MG PO QHS, #30 TAB 12/24/18 Allopurinol* (Allopurinol*) 300 Mg Tablet, 300 MG PO DAILY, TAB 12/24/18 Docusate Sodium* (Docusate Sodium*) 100 Mg Capsule, 100 MG PO DAILY PRN for CONSTIPATION, #30 CAP 12/24/18 Levocetirizine Dihydrochloride (LEVOCETIRIZINE DIHYDROCHLORIDE) 5 Mg Tablet, 1 TAB ORAL DAILY 12/24/18 Insulin Glargine* (Lantus*) 100 Unit/Ml Soln, 25-30 UNIT SC QHS, #1 VIAL 12/24/18 Sulfamethoxazole/Trimethoprim (Sulfamethoxazole-Tmp Ds Tablet) 1 Each Tablet, 1 TAB ORAL DAILY 12/24/18 Calcitriol* (Rocaltrol*) 0.25 Mcg Capsule, 0.25 MCG PO DAILY, CAP 12/24/18 Medications Current Medications Ipratropium [place] (Atrovent Hfa) 4 puff Q4H RESP THERAPY PRN INH SHORTNESS OF BREATH; Start 12/24/18 at 05:00 Nitroglycerin (Nitroglycerin (Sl Tab) 0.4 Mg) 1 tab Q5M PRN SL CHEST PAIN; Start 12/24/18 at 05:00 Acetaminophen (Tylenol Liquid) 650 mg Q6H PRN PO PAIN LEVEL 1-3 OR FEVER; Start 12/24/18 at 05:00 Levalbuterol (Xopenex Neb) 1.25 mg Q4H RESP THERAPY PRN HHN SHORTNESS OF BREATH; Start 12/24/18 at 05:00 Diagnostic Test (Pha) (Accu-Chek) 1 ea Q1H XX Last administered on 12/25/18at 09:06; Admin Dose 1 EA; Start 12/24/18 at 05:00 Insulin Human Regular 100 unit/ Sodium Chloride 100 ml @ 0 mls/hr PER PROTOCOL IV Last administered on 12/24/18at 06:01; Admin Dose 4 MLS/HR; Start 12/24/18 at 05:00 Miscellaneous Information (* Miscellaneous Pharmacy Order) Treatment of Hypoglycemia: 1.BG 51... Per protocol XX ; Start 12/24/18 at 05:00 Dextrose (D50w Syringe) 25 ml Q15M PRN IV .DECREASED GLUCOSE; Start 12/24/18 at 05:00 Dextrose (D50w Syringe) 50 ml Q15M PRN IV .DECREASED GLUCOSE; Start 12/24/18 at 05:00 Famotidine (Pepcid Iv) 20 mg DAILY IV Last administered on 12/25/18at 09:04; Admin Dose 20 MG; Start 12/24/18 at 09:00 Heparin Sodium (Porcine) (Heparin (1000 Units/ml)) 4,000 unit PER PROTOCOL PRN IV aPTT<47 Last administered on 12/25/18at 06:25; Admin Dose 4,000 UNIT; Start 12/24/18 at 07:30 Heparin Sodium (Porcine) 250 ml @ 9.5 mls/hr PER PROTOCOL IV Last administered on 12/24/18at 11:57; Admin Dose 9.5 MLS/HR; Start 12/24/18 at 07:30 Calcitriol (Rocaltrol) 0.25 mcg DAILY PO Last administered on 12/25/18at 09:04; Admin Dose 0.25 MCG; Start 12/25/18 at 09:00 Docusate Sodium (Colace) 100 mg DAILY PRN PO CONSTIPATION; Start 12/24/18 at 09:30 Magnesium Oxide (Mag-Ox 400) 400 mg DAILY PO Last administered on 12/25/18at 09:04; Admin Dose 400 MG; Start 12/25/18 at 09:00 Tamsulosin HCl (Flomax) 0.4 mg HS PO Last administered on 12/24/18at 22:14; Admin Dose 0.4 MG; Start 12/24/18 at 21:00 Carvedilol (Coreg) 25 mg BID PO Last administered on 12/25/18at 09:06; Admin Dose 25 MG; Start 12/24/18 at 21:00 Morphine Sulfate (morphine) 2 mg Q2H PRN IV SEVERE PAIN LEVEL 7-10; Start 12/24/18 at 16:30 Aspirin (Halfprin) 81 mg DAILY PO Last administered on 12/25/18at 09:04; Admin Dose 81 MG; Start 12/24/18 at 19:00 Zolpidem Tartrate (Ambien) 5 mg HS MAY REPEAT X 1 PRN PO INSOMNIA Last administered on 12/25/18at 03:58; Admin Dose 5 MG; Start 12/25/18 at 01:00 Assessment/Plan Hospital Course (Demo Recall) Non-ST elevation myocardial infarction Hypertension Congestive heart failure acute on chronic secondary systolic heart failure Respiratory failure Renal failure on dialysis Diabetes Dyslipidemia History of gout Headache: Rule out acute CVA Recommendations: I will stop the heparin drip now. Head CT to be done stat to rule out acute CVA Aspirin will be continued. Continue with Coreg as tolerated Insulin drip as per internal medicine. Hemodialysis as per renal Plan for left heart catheterization coronary angiogram percutaneous coronary intervention today if head CT does not show any evidence of acute CVA.. Risks benefits alternatives of left heart catheterization coronary angiogram percutaneous coronary intervention discussed with the patient and his daughter in detail. Risks including but not limited to risk of infection vascular complication bleeding complication MA stroke arrhythmia renal failure etc. discussed with him. Consent has been obtained Thank you for his referral. We will continue to follow along with you NORMA MARTINEZ MD [facility] NORMA MARTINEZ MD December 25, 2018 10:43
--- NOTE | 2018-12-25 15:18 | PN ---
Date/Time of Note Date/Time of Note DATE: 12/25/18 TIME: 15:18 Assessment/Plan VTE Prophylaxis Risk score (from Ns)>0 risk: 7 SCD applied (from Ns): Yes Pharmacological prophylaxis: heparin Lines/Catheters IV [facility] (from [facility]): Peripheral IV Urinary Cath still in place: Yes Reason Cath still needed: other (indicate) Assessment/Plan Hospital Course S: patient planned for PCI today O: General: lethargic HEENT: NC/ AT. PERRL. EOM intact Neck: supple CVS: S1, S2, RRR. no murmurs. Lungs: diminished Abd: soft, nontender, +BS Ext: moving all extremities, mild edema Assessment and plan: 1. Acute respiratory failure requiring noninvasive positive pressure ventilation: Improved -2/2 #2 and 3 2. Fluid overload/CHF exacerbation: Improved 3. NSTEMI -for cardiac catheterization today 4. Left lower lobe pneumonia and tracheobronchitis -started on abx per pulm 5. Diabetes mellitus with hyperglycemia without DKA -improved control 6. Hypertension 7. Chronic BPH 8. History of gout 9. End-stage renal disease on hemodialysis Plan:- -cardiac cath today -continue all other measures and ICU care -plan discussed extensively with patient and DVT GI prophylaxis: Heparin, Protonix Result Diagram: 12/25/18 0503 12/25/18 0503 Results 24hrs Laboratory Tests Test 12/24/18 16:47 12/24/18 17:10 12/24/18 18:16 12/24/18 18:23 Sodium Level 142 Potassium Level 4.2 Chloride Level 102 Carbon Dioxide 27 Level Anion Gap 13 Blood Urea 63 H Nitrogen Creatinine 7.21 H Est Glomerular Filtrat Rate mL/min Glucose Level 136 Calcium Level 9.7 Total Bilirubin 0.5 Direct Bilirubin 0.00 Indirect 0.5 Bilirubin Aspartate Amino 32 Transf (AST/SGOT) Alanine 10 L Aminotransferase (ALT/SGPT) Alkaline 87 Phosphatase Creatine Kinase 102 Creatine Kinase 6.4 Index Creatinine Kinase 6.52 H MB (Mass) Troponin I 2.680 *H Total Protein 7.4 Albumin 4.1 Globulin 3.30 H Albumin/Globulin 1.24 Ratio Bedside Glucose 107 120 Activated 61.4 H Partial Thrombopl ast Time Test 12/24/18 22:24 12/25/18 00:27 12/25/18 00:54 12/25/18 02:19 Bedside Glucose 104 115 117 Activated 58.3 H Partial Thrombopl ast Time Test 12/25/18 04:09 12/25/18 04:15 12/25/18 05:03 12/25/18 06:07 Bedside Glucose 125 111 Urine Color YELLOW Urine Clarity CLOUDY A Urine pH 6.0 Urine Specific 1.014 [place] Urine Ketones TRACE A Urine Nitrite NEGATIVE Urine Bilirubin NEGATIVE Urine NEGATIVE Urobilinogen Urine Leukocyte TRACE A Esterase Urine Microscopic 173 H RBC Urine Microscopic 11 H WBC Urine Hemoglobin 3+ H Urine Glucose NEGATIVE Urine Total 3+ H Protein White Blood Count 11.9 #H Red Blood Count 3.91 L Hemoglobin 11.4 L Hematocrit 35.4 L Mean Corpuscular 90.5 Volume Mean Corpuscular 29.2 Hemoglobin Mean Corpuscular 32.2 Hemoglobin Concen t Red Cell 14.3 Distribution Width Platelet Count 292 Mean Platelet 10.2 Volume Immature 0.300 Granulocytes % Neutrophils % 79.7 H Lymphocytes % 11.2 L Monocytes % 7.4 Eosinophils % 1.1 Basophils % 0.3 Nucleated Red 0.0 Blood Cells % Immature 0.040 H Granulocytes # Neutrophils # 9.5 H Lymphocytes # 1.3 Monocytes # 0.9 Eosinophils # 0.1 Basophils # 0.0 Nucleated Red 0.0 Blood Cells # Prothrombin Time 12.9 Prothrombin Time 1.0 Ratio INR International 0.96 Normalized Ratio Activated 44.7 H Partial Thrombopl ast Time Sodium Level 140 Potassium Level 4.3 Chloride Level 98 Carbon Dioxide 30 Level Anion Gap 12 Blood Urea 39 #H Nitrogen Creatinine 5.12 #H Est Glomerular Filtrat Rate mL/min Glucose Level 121 Calcium Level 9.7 Magnesium Level 2.1 Total Bilirubin 0.5 Direct Bilirubin 0.00 Indirect 0.5 Bilirubin Aspartate Amino 46 Transf (AST/SGOT) Alanine 20 Aminotransferase (ALT/SGPT) Alkaline 85 Phosphatase Creatine Kinase 175 Creatine Kinase 8.4 Index Creatinine Kinase 14.70 H MB (Mass) Troponin I 4.110 *H Total Protein 7.1 Albumin 4.0 Globulin 3.10 Albumin/Globulin 1.29 Ratio Triglycerides 95 Level Cholesterol Level 177 LDL Cholesterol, 95 Calculated HDL Cholesterol 63 Cholesterol/HDL 2.8 Ratio Thyroid 1.040 Stimulating Hormone (TSH) Free Thyroxine 1.66 Test 12/25/18 07:00 12/25/18 08:10 5/21/19 10:20 12/25/18 11:05 Blood Gas Blood arterial Specimen Source Arterial Blood 12/25/2018 7:16:0 Date Drawn 9 AM Arterial Blood pH 7.523 H (Temp corrected) Arterial Blood 34.7 L pCO2 (Temp correct) Arterial Blood 84.0 pO2 (Temp corrected) Arterial Blood 27.9 H HCO3 Arterial Blood 5.1 H Base Excess Arterial Blood 96.4 Oxygen Saturation Inocencio Test N/A Arterial Blood Right Brachial Gas Puncture Site Arterial 0.3 Blood Carboxyhemo globin Arterial Blood 0.1 Methemoglobin Blood Gas A-a O2 89.1 H Differential Oxyhemoglobin 96.0 Percent Blood Gas 37.0 Temperature Blood Gas NASAL CANNULA Modality FiO2 30.0 Blood Gas TM Notified Whom Blood Gas 12/25/2018 7:41:4 Notified Time 0 AM Bedside Glucose 122 109 113 Test 12/25/18 12:15 12/25/18 12:30 12/25/18 14:09 Bedside Glucose 134 110 Activated 48.0 H Partial Thrombopl ast Time Exam/Review of Systems Exam Vitals Vital Signs Date Temp Pulse Resp B/P (MAP) Pulse Ox O2 O2 Flow FiO2 Time Delivery Rate 12/25/18 62 12:00 12/25/18 16 97 11:30 12/25/18 91/44 (60) 11:00 12/25/18 Nasal 3.0 07:00 Cannula 12/25/18 97.9 07:00 12/24/18 50 15:03 Intake and Output 12/24/18 12/24/18 12/25/18 1515:00 23:00 07:00 IntakeIntake Total 24.0 ml 73.5 ml 131.0 ml OutputOutput Total 740 ml 2600 ml 30 ml BalanceBalance -716.0 ml -2526.5 ml 101.0 ml Results Results 24hrs Laboratory Tests Test 12/24/18 16:47 12/24/18 17:10 12/24/18 18:16 12/24/18 18:23 Sodium Level 142 Potassium Level 4.2 Chloride Level 102 Carbon Dioxide 27 Level Anion Gap 13 Blood Urea 63 H Nitrogen Creatinine 7.21 H Est Glomerular Filtrat Rate mL/min Glucose Level 136 Calcium Level 9.7 Total Bilirubin 0.5 Direct Bilirubin 0.00 Indirect 0.5 Bilirubin Aspartate Amino 32 Transf (AST/SGOT) Alanine 10 L Aminotransferase (ALT/SGPT) Alkaline 87 Phosphatase Creatine Kinase 102 Creatine Kinase 6.4 Index Creatinine Kinase 6.52 H MB (Mass) Troponin I 2.680 *H Total Protein 7.4 Albumin 4.1 Globulin 3.30 H Albumin/Globulin 1.24 Ratio Bedside Glucose 107 120 Activated 61.4 H Partial Thrombopl ast Time Test 12/24/18 22:24 12/25/18 00:27 12/25/18 00:54 12/25/18 02:19 Bedside Glucose 104 115 117 Activated 58.3 H Partial Thrombopl ast Time Test 12/25/18 04:09 12/25/18 04:15 12/25/18 05:03 12/25/18 06:07 Bedside Glucose 125 111 Urine Color YELLOW Urine Clarity CLOUDY A Urine pH 6.0 Urine Specific 1.014 [place] Urine Ketones TRACE A Urine Nitrite NEGATIVE Urine Bilirubin NEGATIVE Urine NEGATIVE Urobilinogen Urine Leukocyte TRACE A Esterase Urine Microscopic 173 H RBC Urine Microscopic 11 H WBC Urine Hemoglobin 3+ H Urine Glucose NEGATIVE Urine Total 3+ H Protein White Blood Count 11.9 #H Red Blood Count 3.91 L Hemoglobin 11.4 L Hematocrit 35.4 L Mean Corpuscular 90.5 Volume Mean Corpuscular 29.2 Hemoglobin Mean Corpuscular 32.2 Hemoglobin Concen t Red Cell 14.3 Distribution Width Platelet Count 292 Mean Platelet 10.2 Volume Immature 0.300 Granulocytes % Neutrophils % 79.7 H Lymphocytes % 11.2 L Monocytes % 7.4 Eosinophils % 1.1 Basophils % 0.3 Nucleated Red 0.0 Blood Cells % Immature 0.040 H Granulocytes # Neutrophils # 9.5 H Lymphocytes # 1.3 Monocytes # 0.9 Eosinophils # 0.1 Basophils # 0.0 Nucleated Red 0.0 Blood Cells # Prothrombin Time 12.9 Prothrombin Time 1.0 Ratio INR International 0.96 Normalized Ratio Activated 44.7 H Partial Thrombopl ast Time Sodium Level 140 Potassium Level 4.3 Chloride Level 98 Carbon Dioxide 30 Level Anion Gap 12 Blood Urea 39 #H Nitrogen Creatinine 5.12 #H Est Glomerular Filtrat Rate mL/min Glucose Level 121 Calcium Level 9.7 Magnesium Level 2.1 Total Bilirubin 0.5 Direct Bilirubin 0.00 Indirect 0.5 Bilirubin Aspartate Amino 46 Transf (AST/SGOT) Alanine 20 Aminotransferase (ALT/SGPT) Alkaline 85 Phosphatase Creatine Kinase 175 Creatine Kinase 8.4 Index Creatinine Kinase 14.70 H MB (Mass) Troponin I 4.110 *H Total Protein 7.1 Albumin 4.0 Globulin 3.10 Albumin/Globulin 1.29 Ratio Triglycerides 95 Level Cholesterol Level 177 LDL Cholesterol, 95 Calculated HDL Cholesterol 63 Cholesterol/HDL 2.8 Ratio Thyroid 1.040 Stimulating Hormone (TSH) Free Thyroxine 1.66 Test 12/25/18 07:00 12/25/18 08:10 12/25/18 10:20 12/25/18 11:05 Blood Gas Blood arterial Specimen Source Arterial Blood 12/25/2018 7:16:0 Date Drawn 9 AM Arterial Blood pH 7.523 H (Temp corrected) Arterial Blood 34.7 L pCO2 (Temp correct) Arterial Blood 84.0 pO2 (Temp corrected) Arterial Blood 27.9 H HCO3 Arterial Blood 5.1 H Base Excess Arterial Blood 96.4 Oxygen Saturation Inocencio Test N/A Arterial Blood Right Brachial Gas Puncture Site Arterial 0.3 Blood Carboxyhemo globin Arterial Blood 0.1 Methemoglobin Blood Gas A-a O2 89.1 H Differential Oxyhemoglobin 96.0 Percent Blood Gas 37.0 Temperature Blood Gas NASAL CANNULA Modality FiO2 30.0 Blood Gas TM Notified Whom Blood Gas 12/25/2018 7:41:4 Notified Time 0 AM Bedside Glucose 122 109 113 Test 12/25/18 12:15 12/25/18 12:30 12/25/18 14:09 Bedside Glucose 134 110 Activated 48.0 H Partial Thrombopl ast Time Medications Medication Current Medications Ipratropium Tilden (Atrovent Hfa) 4 puff Q4H RESP THERAPY PRN INH SHORTNESS OF BREATH; Start 12/24/18 at 05:00 Nitroglycerin (Nitroglycerin (Sl Tab) 0.4 Mg) 1 tab Q5M PRN SL CHEST PAIN; Start 12/24/18 at 05:00 Acetaminophen (Tylenol Liquid) 650 mg Q6H PRN PO PAIN LEVEL 1-3 OR FEVER Last administered on 12/25/18at 10:41; Admin Dose 650 MG; Start 12/24/18 at 05:00 Levalbuterol (Xopenex Neb) 1.25 mg Q4H RESP THERAPY PRN HHN SHORTNESS OF BREATH; Start 12/24/18 at 05:00 Diagnostic Test (Pha) (Accu-Chek) 1 ea Q1H XX Last administered on 12/25/18 14:07; Admin Dose 1 EA; Start 12/24/18 at 05:00 Insulin Human Regular 100 unit/ Sodium Chloride 100 ml @ 0 mls/hr PER PROTOCOL IV Last administered on 12/24/18 06:01; Admin Dose 4 MLS/HR; Start 12/24/18 at 05:00 Miscellaneous Information (* Miscellaneous Pharmacy Order) Treatment of Hypoglycemia: 1.BG 51... Per protocol XX ; Start 12/24/18 at 05:00 Dextrose (D50w Syringe) 25 ml Q15M PRN IV .DECREASED GLUCOSE; Start 12/24/18 at 05:00 Dextrose (D50w Syringe) 50 ml Q15M PRN IV .DECREASED GLUCOSE; Start 12/24/18 at 05:00 Famotidine (Pepcid Iv) 20 mg DAILY IV Last administered on 12/25/18 09:04; Admin Dose 20 MG; Start 12/24/18 at 09:00 Calcitriol (Rocaltrol) 0.25 mcg DAILY PO Last administered on 12/25/18 09:04; Admin Dose 0.25 MCG; Start 12/25/18 at 09:00 Docusate Sodium (Colace) 100 mg DAILY PRN PO CONSTIPATION; Start 12/24/18 at 09:30 Magnesium Oxide (Mag-Ox 400) 400 mg DAILY PO Last administered on 12/25/18 09:04; Admin Dose 400 MG; Start 12/25/18 at 09:00 Tamsulosin HCl (Flomax) 0.4 mg HS PO Last administered on 12/24/18 22:14; Admin Dose 0.4 MG; Start 12/24/18 at 21:00 Carvedilol (Coreg) 25 mg BID PO Last administered on 12/25/18 09:06; Admin Dose 25 MG; Start 12/24/18 at 21:00 Morphine Sulfate (morphine) 2 mg Q2H PRN IV SEVERE PAIN LEVEL 7-10; Start 12/24/18 at 16:30 Aspirin (Halfprin) 81 mg DAILY PO Last administered on 12/25/18 09:04; Admin Dose 81 MG; Start 12/24/18 at 19:00 Zolpidem Tartrate (Ambien) 5 mg HS MAY REPEAT X 1 PRN PO INSOMNIA Last administered on 5/21/19at 03:58; Admin Dose 5 MG; Start 12/25/18 at 01:00 ESTELA GIVENS December 25, 2018 15:18
[2018-12-25] MEDS ORDERED: FENTAnyl 50 MCG/ML VIAL ONE (15:22)
[2018-12-25] MEDS ORDERED: MIDAZOLAM 1 MG/ML 2 ML INJ ONE (15:22)
[2018-12-25] MEDS ORDERED: VERAPAMIL 5 MG INJ ONE (15:46)
[2018-12-25] MEDS ORDERED: IODIXANOL LOCM 100 ML BTL ONE (15:46)
[2018-12-25] MEDS ORDERED: IOHEXOL 350MG/ML 50 ML BTL ONE (15:46)
[2018-12-25] MEDS ORDERED: BIVALIRUDIN 250MG /NS 50 ML 50 ML IVPB ONE (15:46)
[2018-12-25] MEDS ORDERED: NITROGLYCERIN (IC) 100 MCG/ML INJ ONE (16:19)
[2018-12-25] MEDS ORDERED: CLOPIDOGREL 300 MG TAB ONE (16:19)
--- NOTE | 2018-12-25 16:49 | OPR ---
Date/Time of Note Date/Time of Note DATE: 12/25/18 TIME: 16:39 Operative Report Procedure Date: December 25, 2018 Preoperative Diagnosis NSTEMI Postoperative Diagnosis NSTEMI Operation/Procedure Performed PCI LAD Surgeon see signature line Wood Cabinetmaker Neftaly Anesthesia Type: moderate sedation Estimated Blood Loss: minimal Transfusion none Specimen NONE Grafts/Implants none Complications none Procedure Description Founder And Chief Executive Officer: Norma Marte MD Indication: 78-year-old gentleman with diabetes hypertension renal failure on dialysis who presented with non-ST elevation myocardial infarction . Patient echocardiogram also showed LV dysfunction consistent with anterior infarct/ischemia Procure performed: #1 left heart catheterization and selective right and left coronary angiogram #2 Right femoral angiogram and closure using a Perclose device 3. Successful PTCA and stenting of proximal and mid left anterior descending artery using a 3 x 38 mm Synergy drug-eluting stent and a 3.5 x 38 mm Synergy drug-eluting stent 4. Thrombectomy of the left anterior descending artery using a Pronto device 5. Intravascular ultrasound (IVUS) of the left anterior descending artery 6. Moderate sedation for more than 75 minutes Findings: 1. Left main: is normal and birfurcates to LAD & LCX. 2. LAD: has 70-80 % stenosis at proximal LAD, and 100 % stenosis at mid LAD with YESENIA 0 flow. After successful PCI of this lesions there was no significant residual stenosis left with YESENIA-3 flow 3. Left circumflex artery: is nondominant. it has 2 moderate-sized obtuse marginal. OM1 has 60 % stenosis at the ostium. Left circumflex artery right after the obtuse marginal 1 has also 30% stenosis 4. RCA: is dominant but small.. it has long and very diffuse 50 % stenosis at proximal to mid all the way to the distal right coronary artery. It gives out to 2 small branches of PDA and posterolateral artery 5. LVEDP is 20 with no significant gradient across the aortic valve. Procedure in detail: Written informed consent with obtained after risks benefits and alternatives discussed with the patient in detail. risks including but not limited to risk of infection vascular complications, bleeding complications, LA stroke arrhythmia renal failure at even were discussed with the patient and family in detail. Patient was brought into the cardiac labor relations manager and placed in supine position. Right and left groin area was prepped and draped in regular sterile fashion and then he was in anesthetized using 1% lidocaine. Right femoral artery was cannulated and using modified seldinger technique a 6 F rench sheath was placed in the femoral artery. Femoral angiogram was performed JL4 guiding catheter was advanced to engage the left main coronary artery angiographic view was obtained. JR4 catheter was advanced and engaged into the right coronary artery and angiographic view was obtained. Then a JR4 was advanced to engage the left ventricle hemodynamics as recorded by pullback aortic pressure was measured. At this time we decided to perform PCI of the left anterior descending artery. A XB LAD 3.5 guiding catheter was advanced to engage the left main coronary artery. MW wire was used and advanced across the lesion and placed distal to the lesion. I used a 0.5 x 15 mm balloon which was placed across the lesion and predilated the vessel. Then Pronto was used and thrombectomy of this lesion was done. YESENIA-3 flow was noted after thrombectomy was done. Then the same balloon was used and the lesion was dilated even more. Then I used a 2.5 x 38 mm Synergy drug-eluting stent which was placed across the mid to distal lesion and deployed at 12 Sammie. Then I used another 3 x 38 mm Synergy drug-eluting stent which was placed just proximal to the previous stent and deployed at 16 sammie at the proximal and mid lesion. Then intravascular ultrasound was done. Once nitroglycerin intracoronary given, LULY catheter was advanced into the distal to the stent and it was withdrawn and multiple views was obtained. At this point it was decided to postdilated the stent even more. A 3 x 12 mm noncompliant balloon was used and postdilated the distal stent and up to 18 Sammie. Then I used a 3.5 x 12 mm noncompliant balloon Visipaque across the stent and postdilated the proximal stent up to 18 sammie. Final intravascular ultrasound of the LAD was done again which showed well opposed stents Final angiographic view was obtained which showed YESENIA-3 flow no evidence of dissection and no significant residual stenosis at the site of the stent. perclose was successfully deployed. Patient tolerated the procedure well with no complication. Patient was transferred to ICU in stable condition. contrast used: 250 cc visipaque Conclusions: Successful PTCA thrombectomy/stenting of the left anterior descending artery from 100% occlusion to no significant residual stenosis using a 2.5 x 38 and a 3 x 38 mm Synergy drug-eluting stents. Recommendations: Aggressive medical therapy. aspirin indefinitely dual antiplatlet therapy with aspirin and Plavix for at least one year ICU care overnight. NORMA MARTE MD [facility] NORMA MARTE MD December 25, 2018 16:48
[2018-12-25] MEDS ORDERED: SOD CHLORIDE 0.9% 1,000 ML IV SCH (16:50)
[2018-12-25] MEDS: morphine 2 MG INJ IV PRN (18:02)
[2018-12-25] MEDS: TAMSULOSIN (SR) 0.4 MG CAP PO SCH (21:06)
[2018-12-26] VITALS (44 sets, daily range): BP systolic 81–136; BP diastolic 23–95; PULSE 57–76; RESP 12–32
[2018-12-26] MEDS: ACCU-CHEK XX SCH ×6 (01:00→04:40)
[2018-12-26] MEDS ORDERED: INSULIN GLARGINE [LANTus] (100 UNITS/ML) SYG SC ONE (03:00)
[2018-12-26] MEDS ORDERED: GLUCAGON 1 MG INJ IM PRN (05:00)
[2018-12-26] MEDS ORDERED: GLUCOSE GEL 15 GRAM TUBE PO PRN ×2 (05:00)
[2018-12-26] MEDS ORDERED: DEXTROSE 50% 50 ML SYRINGE IV PRN ×2 (05:00)
[2018-12-26] MEDS ORDERED: GLUCOSE GEL 15 GRAM TUBE BUCCAL PRN (05:00)
[2018-12-26] MEDS: ACETAMINOPHEN 650MG/20.3ML CUP PO PRN (05:46)
--- NOTE | 2018-12-26 07:50 | CONS ---
Consult Date/Type/Reason Admit Date/Time December 24, 2018 at 04:04 Initial Consult Date 12/24/18 Requesting Provider: ESTELA GIVENS Date/Time of Note DATE: 12/26/18 TIME: 07:46 Subjective Interventional cardiology follow-up progress note Subjective: Discussed with the staff and telemetry was reviewed patient remains in sinus rhythm. He denies any chest pain or pressure today. Complains of severe headache again this morning. Patient is still in the ICU but off insulin drip No groin pain no palpitations Objective: General: Obese gentleman in no acute distress HEENT: NC/AT. pupils are equal. round. NECK: + JVD. no stridor. CV: RRR. systolic murmur; no gallop or rubs. PULM: no wheezing . no rhonchi. GI: SOFT, NT, ND, no rebound or guarding Extremity: trace B/L LE edema. no clubbing. neuro: awake and alert, OX3. Psych: calm and pleasant rectal: deferred vascular: Right femoral no bleeding no hematoma EKG was personally reviewed shows sinus tachycardia. Anteroseptal infarct age undetermined. The vertical conduction delay Echocardiogram was personally reviewed which shows: Normal left ventricular cavity size. Sigmoid septum. Moderate global left ventricular systolic dysfunction. Ejection fraction is visually estimated at 35-40 %. Tissue Doppler/Mitral Doppler indices are consistent with impaired relaxation (Stage I diastolic dysfunction). Multiple segmental wall motion abnormalities. These segments of the LV are hypokinetic mid anterior segment, apical anterior segment, apical lateral segment, inferior apex segment, apex and apical septum. The left atrium is normal in size. Mild mitral leaflet calcification. Mild mitral annular calcification. Trace mitral regurgitation. No hemodynamically significant aortic stenosis by doppler. Aortic cusps appear mildly calcified. Normal appearance of the tricuspid valve. Estimated peak PA systolic pressure 35 mmHg. There is mild tricuspid regurgitation. Dilated IVC without respiratory collapse, however, patient on BI-PAP. Objective Vitals Vital Signs Date Temp Pulse Resp B/P (MAP) Pulse Ox O2 O2 Flow FiO2 Time Delivery Rate 12/26/18 65 14 95/39 (57) 100 Room Air 06:00 12/26/18 98.7 04:00 12/26/18 2.0 02:00 12/24/18 50 15:03 Intake and Output 12/25/18 12/25/18 12/26/18 1515:00 23:00 07:00 IntakeIntake Total 42.0 ml 378.5 ml 655.0 ml OutputOutput Total 25 ml 125 ml 50 ml BalanceBalance 17.0 ml 253.5 ml 605.0 ml Results/Medications Result Diagram: 12/26/18 0446 12/26/18 0446 Results 24 hrs Laboratory Tests Test 12/25/18 08:10 12/25/18 10:20 12/25/18 11:05 12/25/18 12:15 Bedside Glucose 122 109 113 134 Test 12/25/18 12:30 12/25/18 14:09 12/25/18 16:36 12/25/18 18:01 Activated 48.0 H Partial Thromboplast Time Bedside Glucose 110 108 121 Test 12/25/18 20:04 12/25/18 22:09 12/26/18 00:40 12/26/18 02:17 Bedside Glucose 145 152 136 118 Test 12/26/18 03:56 12/26/18 04:46 Bedside Glucose 164 White Blood Count 15.1 #H Red Blood Count 3.60 L Hemoglobin 10.5 L Hematocrit 33.4 L Mean Corpuscular 92.8 Volume Mean Corpuscular 29.2 Hemoglobin Mean Corpuscular 31.4 L Hemoglobin Concent Red Cell 14.3 Distribution Width Platelet Count 258 Mean Platelet Volume 10.8 H Immature 0.500 H Granulocytes % Neutrophils % 81.9 H Lymphocytes % 7.4 L Monocytes % 9.4 Eosinophils % 0.4 Basophils % 0.4 Nucleated Red Blood 0.0 Cells % Immature 0.070 H Granulocytes # Neutrophils # 12.4 H Lymphocytes # 1.1 Monocytes # 1.4 H Eosinophils # 0.1 Basophils # 0.1 Nucleated Red Blood 0.0 Cells # Sodium Level 139 Potassium Level 4.8 Chloride Level 98 Carbon Dioxide Level 25 Anion Gap 16 H Blood Urea Nitrogen 55 H Creatinine 6.82 H Est Glomerular Filtrat Rate mL/min Glucose Level 147 Calcium Level 9.6 Phosphorus Level 8.9 H Magnesium Level 2.2 Home Meds Reported Medications Magnesium Oxide* (Mag-Oxide*) 400 Mg Tablet, 400 MG PO DAILY, TAB 12/24/18 Losartan-Hydrochlorothiazide (Losartan-HCTZ) 100-12.5 Mg Tab, 1 TAB ORAL DAILY 12/24/18 Tamsulosin Hcl* (Flomax*) 0.4 Mg Cap.er.24h, 0.4 MG PO HS, CAP 12/24/18 Carvedilol* (Carvedilol*) 6.25 Mg Tablet, 1 TAB ORAL BID 12/24/18 Ergocalciferol (Vitamin D2) (VITAMIN D2) 50,000 Unit Capsule, 1 CAP ORAL WEEKLY 12/24/18 Ranitidine Hcl* (Ranitidine Hcl*) 300 Mg Tablet, 300 MG PO DAILY, #30 TAB 12/24/18 Trazodone Hcl* (Trazodone Hcl*) 100 Mg Tablet, 100 MG PO QHS, #30 TAB 12/24/18 Allopurinol* (Allopurinol*) 300 Mg Tablet, 300 MG PO DAILY, TAB 12/24/18 Docusate Sodium* (Docusate Sodium*) 100 Mg Capsule, 100 MG PO DAILY PRN for CONSTIPATION, #30 CAP 12/24/18 Levocetirizine Dihydrochloride (LEVOCETIRIZINE DIHYDROCHLORIDE) 5 Mg Tablet, 1 TAB ORAL DAILY 12/24/18 Insulin Glargine* (Lantus*) 100 Unit/Ml Soln, 25-30 UNIT SC QHS, #1 VIAL 12/24/18 Sulfamethoxazole/Trimethoprim (Sulfamethoxazole-Tmp Ds Tablet) 1 Each Tablet, 1 TAB ORAL DAILY 12/24/18 Calcitriol* (Rocaltrol*) 0.25 Mcg Capsule, 0.25 MCG PO DAILY, CAP 12/24/18 Medications Current Medications Ipratropium [place] (Atrovent Hfa) 4 puff Q4H RESP THERAPY PRN INH SHORTNESS OF BREATH; Start 12/24/18 at 05:00 Nitroglycerin (Nitroglycerin (Sl Tab) 0.4 Mg) 1 tab Q5M PRN SL CHEST PAIN; Start 12/24/18 at 05:00 Acetaminophen (Tylenol Liquid) 650 mg Q6H PRN PO PAIN LEVEL 1-3 OR FEVER Last administered on 12/26/18at 05:46; Admin Dose 650 MG; Start 12/24/18 at 05:00 Levalbuterol (Xopenex Neb) 1.25 mg Q4H RESP THERAPY PRN HHN SHORTNESS OF BREATH; Start 12/24/18 at 05:00 Miscellaneous Information (* Miscellaneous Pharmacy Order) Treatment of Hypoglycemia: 1.BG 51... Per protocol XX ; Start 12/24/18 at 05:00 Famotidine (Pepcid Iv) 20 mg DAILY IV Last administered on 12/25/18at 09:04; Admin Dose 20 MG; Start 12/24/18 at 09:00 Calcitriol (Rocaltrol) 0.25 mcg DAILY PO Last administered on 12/25/18 09:04; Admin Dose 0.25 MCG; Start 12/25/18 at 09:00 Docusate Sodium (Colace) 100 mg DAILY PRN PO CONSTIPATION; Start 12/24/18 at 09:30 Magnesium Oxide (Mag-Ox 400) 400 mg DAILY PO Last administered on 12/25/18at 09:04; Admin Dose 400 MG; Start 12/25/18 at 09:00 Tamsulosin HCl (Flomax) 0.4 mg HS PO Last administered on 12/25/18at 21:06; Admin Dose 0.4 MG; Start 12/24/18 at 21:00 Morphine Sulfate (morphine) 2 mg Q2H PRN IV SEVERE PAIN LEVEL 7-10 Last administered on 12/25/18at 18:02; Admin Dose 2 MG; Start 12/24/18 at 16:30 Aspirin (Halfprin) 81 mg DAILY PO Last administered on 12/25/18at 09:04; Admin Dose 81 MG; Start 12/24/18 at 19:00 Zolpidem Tartrate (Ambien) 5 mg HS MAY REPEAT X 1 PRN PO INSOMNIA Last administered on 12/25/18at 03:58; Admin Dose 5 MG; Start 12/25/18 at 01:00 Carvedilol (Coreg) 12.5 mg BID PO Last administered on 12/25/18at 21:05; Admin Dose 12.5 MG; Start 12/25/18 at 21:00 Clopidogrel Bisulfate (plaVIX) 75 mg DAILY PO ; Start 12/26/18 at 09:00 Insulin Aspart (Novolog Insulin Pen) NOVOLOG *MODERATE* ALGORITHM WITH MEALS BEDTIME SC ; Start 12/26/18 at 07:35 Miscellaneous Information 1 ea NOTE XX ; Start 12/26/18 at 05:00 Glucose (Glutose) 15 gm Q15M PRN PO DECREASED GLUCOSE; Start 12/26/18 at 05:00 Glucose (Glutose) 22.5 gm Q15M PRN PO DECREASED GLUCOSE; Start 12/26/18 at 05:00 Dextrose (D50w Syringe) 25 ml Q15M PRN IV DECREASED GLUCOSE; Start 12/26/18 at 05:00 Dextrose (D50w Syringe) 50 ml Q15M PRN IV DECREASED GLUCOSE; Start 12/26/18 at 05:00 Glucagon (Glucagen) 1 mg Q15M PRN IM DECREASED GLUCOSE; Start 12/26/18 at 05:00 Glucose (Glutose) 15 gm Q15M PRN BUCCAL DECREASED GLUCOSE; Start 12/26/18 at 05:00 Assessment/Plan Hospital Course (Demo Recall) Non-ST elevation myocardial infarction: SP PCI LAD 12/25/18 Hypertension Congestive heart failure acute on chronic secondary systolic heart failure Respiratory failure Renal failure on dialysis Diabetes Dyslipidemia History of gout Headache: CT of the head done December 25 did not show any evidence of acute CVA, ? Related to sinusitis versus others. Will defer to internal medicine team Recommendations: Aspirin plavix will be continued. We will decrease Coreg to avoid hypotension Insulin as per internal medicine. Hemodialysis as per renal Continue with statin We will add ARB tomorrow Okay to transfer to telemetry from the cardiac standpoint Thank you for his referral. We will continue to follow along with you NORMA MARTINEZ MD [facility] NORMA MARTINEZ MD December 26, 2018 07:49
[2018-12-26] MEDS: INSULIN ASPART [NOVOLOG] 3 ML PEN SC SCH ×7 (08:11→20:19)
--- NOTE | 2018-12-26 08:11 | PN ---
DATE: 12/26/2018 SUBJECTIVE: The patient had a cardiac catheterization with percutaneous coronary intervention to the left anterior descending. The patient is currently stable. No fevers, chills, nausea, or vomiting. OBJECTIVE: VITAL SIGNS: Blood pressure is 95/39, respirations 14, pulse 65, temperature 98.7. HEENT: Head is normocephalic. NECK: Supple. HEART: Regular rate. LUNGS: Show diminished breath sounds at the base. ABDOMEN: Soft, nontender to palpation without rebound or guarding. EXTREMITIES: Negative for clubbing, cyanosis, no edema. DERMATOLOGIC: No rashes. MUSCULOSKELETAL: No joint effusion. NEUROLOGIC: No change in exam. MEDICATIONS: Reviewed. LABORATORY DATA: Reviewed. ASSESSMENT AND PLAN: 1. End-stage renal disease. Plan is for hemodialysis today. We will dialyze for 3 hours 3k bath, c alcium 2.5. 2. Anemia. Continue to monitor hemoglobin and hematocrit levels. We will give Epogen with hemodial ysis. 3. Mineral bone disorder, monitor calcium and phosphorus levels. We will start the patient on phosp hate binders. 4. Hypertension. Blood pressure currently controlled. Continue current blood pressure regimen. 5. Non-ST elevated myocardial infarction. The patient is status post cardiac catheterization with p ercutaneous coronary intervention to left anterior descending. Continue current medical management. Follow up with cardiology. 6. Volume overload, improved. Continue ultrafiltration with dialysis. 7. Acute hypoxemic respiratory failure, improving. Continue to monitor. 8. Diabetes. Continue current insulin regimen. 9. History of gout. Dictated By: ALLISON GALLOWAY DO NR/NTS Conf#: [id number] DID#: [id number] CC: ESTELA GIVENS MD; ARETHA ELIZALDE MD; SLIME PACK MD;*EndCC*
[2018-12-26] MEDS: ASPIRIN (EC) 81 MG TAB PO SCH (08:17)
[2018-12-26] MEDS: MAGNESIUM OXIDE 400 MG TAB PO SCH (08:17)
[2018-12-26] MEDS: CLOPIDOGREL 75 MG TAB PO SCH (08:17)
[2018-12-26] MEDS: CALCITRIOL 0.25 MCG CAP PO SCH (08:18)
[2018-12-26] MEDS: MULTIVIT/CA CARB/B CMPLX/FA TAB PO SCH (08:18)
[2018-12-26] MEDS: FAMOTIDINE 20 MG INJ IV SCH (08:24)
--- NOTE | 2018-12-26 09:10 | CONS ---
Assessment/Plan Assessment/Plan Assessment/Plan (Daily) Assessment and recommendations; 1. Patient admitted with sepsis due to left lower lobe pneumonia with some element of tracheobronchitis with interval clinical improvement. Patient not exhibiting mild leukocytosis. 2. History of BPH. 3. Diabetes. 4. Hypertension. 5. Mild CHF. 6. Chronic renal failure, on hemodialysis. Continue current supportive care. Add cefepime 1 g IV every 12 hours. Obtain follow-up chest x-ray in 48 hours. Consultation Date/Type/Reason Admit Date/Time December 24, 2018 at 04:04 Initial Consult Date 12/24/18 Type of Consult Pulmonary/critical care Requesting Provider: ESTELA GIVENS Date/Time of Note DATE: 12/26/18 TIME: 09:08 24 HR Interval Summary Free Text/Dictation Patient's condition is stable overall. Denies any shortness of breath, chest pain, coughing or wheezing. General exam; elderly male, awake and alert. Currently in no distress. Exam/Review of Systems Exam Vitals Vital Signs Date Temp Pulse Resp B/P (MAP) Pulse Ox O2 O2 Flow FiO2 Time Delivery Rate 12/26/18 Nasal 2.0 08:37 Cannula 12/26/18 97.8 63 21 108/95 95 08:00 (99) 12/24/18 50 15:03 Intake and Output 12/25/18 12/25/18 12/26/18 1515:00 23:00 07:00 IntakeIntake Total 42.0 ml 378.5 ml 655.0 ml OutputOutput Total 25 ml 125 ml 50 ml BalanceBalance 17.0 ml 253.5 ml 605.0 ml Exam H EENT exam; supple neck, no JVD. No lymphadenopathy. Midline trachea. No thyromegaly. Patient has fair dentition. No neck masses. Chest exam; diminished but clear breath sounds. S1-S2 audible, no murmurs. Regular rhythm. Abdomen exam; soft, mildly protuberant. No organomegaly. Nontender. Bowel sounds audible. Extremity exam; no peripheral edema clubbing. Pulses 1+. MACHINE INSPECTOR exam; no focal deficit. Results Result Diagram: 12/26/18 0446 12/26/18 0446 Results 24hrs Laboratory Tests Test 12/25/18 10:20 12/25/18 11:05 12/25/18 12:15 12/25/18 12:30 Bedside Glucose 109 113 134 Activated 48.0 H Partial Thromboplast Time Test 12/25/18 14:09 12/25/18 16:36 12/25/18 18:01 12/25/18 20:04 Bedside Glucose 110 108 121 145 Test 12/25/18 22:09 12/26/18 00:40 12/26/18 02:17 12/26/18 03:56 Bedside Glucose 152 136 118 164 Test 12/26/18 04:46 12/26/18 08:04 White Blood Count 15.1 #H Red Blood Count 3.60 L Hemoglobin 10.5 L Hematocrit 33.4 L Mean Corpuscular 92.8 Volume Mean Corpuscular 29.2 Hemoglobin Mean Corpuscular 31.4 L Hemoglobin Concent Red Cell 14.3 Distribution Width Platelet Count 258 Mean Platelet Volume 10.8 H Immature 0.500 H Granulocytes % Neutrophils % 81.9 H Lymphocytes % 7.4 L Monocytes % 9.4 Eosinophils % 0.4 Basophils % 0.4 Nucleated Red Blood 0.0 Cells % Immature 0.070 H Granulocytes # Neutrophils # 12.4 H Lymphocytes # 1.1 Monocytes # 1.4 H Eosinophils # 0.1 Basophils # 0.1 Nucleated Red Blood 0.0 Cells # Sodium Level 139 Potassium Level 4.8 Chloride Level 98 Carbon Dioxide Level 25 Anion Gap 16 H Blood Urea Nitrogen 55 H Creatinine 6.82 H Est Glomerular Filtrat Rate mL/min Glucose Level 147 Calcium Level 9.6 Phosphorus Level 8.9 H Magnesium Level 2.2 Bedside Glucose 164 Medications Medication Current Medications Ipratropium [place] (Atrovent Hfa) 4 puff Q4H RESP THERAPY PRN INH SHORTNESS OF BREATH; Start 12/24/18 at 05:00 Nitroglycerin (Nitroglycerin (Sl Tab) 0.4 Mg) 1 tab Q5M PRN SL CHEST PAIN; Start 12/24/18 at 05:00 Acetaminophen (Tylenol Liquid) 650 mg Q6H PRN PO PAIN LEVEL 1-3 OR FEVER Last administered on 12/26/18at 05:46; Admin Dose 650 MG; Start 12/24/18 at 05:00 Levalbuterol (Xopenex Neb) 1.25 mg Q4H RESP THERAPY PRN HHN SHORTNESS OF BREATH; Start 12/24/18 at 05:00 Famotidine (Pepcid Iv) 20 mg DAILY IV Last administered on 12/26/18 08:24; Admin Dose 20 MG; Start 12/24/18 at 09:00 Calcitriol (Rocaltrol) 0.25 mcg DAILY PO Last administered on 12/26/18 08:18; Admin Dose 0.25 MCG; Start 12/25/18 at 09:00 Docusate Sodium (Colace) 100 mg DAILY PRN PO CONSTIPATION; Start 12/24/18 at 09:30 Magnesium Oxide (Mag-Ox 400) 400 mg DAILY PO Last administered on 12/26/18 08:17; Admin Dose 400 MG; Start 12/25/18 at 09:00 Tamsulosin HCl (Flomax) 0.4 mg HS PO Last administered on 12/25/18 21:06; Admin Dose 0.4 MG; Start 12/24/18 at 21:00 Morphine Sulfate (morphine) 2 mg Q2H PRN IV SEVERE PAIN LEVEL 7-10 Last administered on 12/25/18at 18:02; Admin Dose 2 MG; Start 12/24/18 at 16:30 Aspirin (Halfprin) 81 mg DAILY PO Last administered on 12/26/18 08:17; Admin Dose 81 MG; Start 12/24/18 at 19:00 Zolpidem Tartrate (Ambien) 5 mg HS MAY REPEAT X 1 PRN PO INSOMNIA Last administered on 12/25/18at 03:58; Admin Dose 5 MG; Start 12/25/18 at 01:00 Clopidogrel Bisulfate (plaVIX) 75 mg DAILY PO Last administered on 12/26/18 08:17; Admin Dose 75 MG; Start 12/26/18 at 09:00 Insulin Aspart (Novolog Insulin Pen) NOVOLOG *MODERATE* ALGORITHM WITH MEALS BEDTIME SC Last administered on 12/26/18 08:11; Admin Dose 2 UNIT; Start 12/26/18 at 07:35 Miscellaneous Information 1 ea NOTE XX ; Start 12/26/18 at 05:00 Glucose (Glutose) 15 gm Q15M PRN PO DECREASED GLUCOSE; Start 12/26/18 at 05:00 Glucose (Glutose) 22.5 gm Q15M PRN PO DECREASED GLUCOSE; Start 12/26/18 at 05:00 Dextrose (D50w Syringe) 25 ml Q15M PRN IV DECREASED GLUCOSE; Start 12/26/18 at 05:00 Dextrose (D50w Syringe) 50 ml Q15M PRN IV DECREASED GLUCOSE; Start 12/26/18 at 05:00 Glucagon (Glucagen) 1 mg Q15M PRN IM DECREASED GLUCOSE; Start 12/26/18 at 05:00 Glucose (Glutose) 15 gm Q15M PRN BUCCAL DECREASED GLUCOSE; Start 12/26/18 at 05:00 Multivit/Ca Carb/ B Cmplx/FA/Prenat (Drea-Grisel) 1 tab DAILY PO Last administered on 12/26/18at 08:18; Admin Dose 1 TAB; Start 12/26/18 at 09:00 Sevelamer Carbonate (Renvela) 800 mg WITH MEALS PO ; Start 12/26/18 at 11:30 Carvedilol (Coreg) 6.25 mg BID PO Last administered on 12/26/18at 08:18; Admin Dose 6.25 MG; Start 12/26/18 at 09:00 Losartan Potassium (Cozaar) 25 mg DAILY PO ; Start 12/27/18 at 09:00 BARBRA RODNEY December 26, 2018 09:10
[2018-12-26] MEDS: CEFEPIME 1GM/50 ML (PMX) 50 ML IVPB SCH (10:38)
[2018-12-26] MEDS: SEVELAMER CARBONATE 800 MG TABLET PO SCH ×3 (11:51→17:09)
[2018-12-26] MEDS: HYDROCODONE/APAP (5/325) TAB PO PRN ×2 (12:19→16:41)
--- NOTE | 2018-12-26 12:56 | PN ---
Date/Time of Note Date/Time of Note DATE: 12/26/18 TIME: 12:43 Assessment/Plan VTE Prophylaxis Risk score (from Nsg)>0 risk: 5 SCD applied (from Nsg): Yes Pharmacological prophylaxis: heparin Lines/Catheters IV Catheter Type (from Nrsg): Saline Lock Urinary Cath still in place: Yes Reason Cath still needed: other (indicate) Assessment/Plan Hospital Course Is subjective: Patient complaining of pain in right upper extremity, at the wrist and the mid forearm. Pain is somewhat vague, not exactly reproducible but movement of that extremity causes him a lot of distress. He does have his IV access in the wrist that arm. Objective: Assessment and plan: 1. Acute respiratory failure status post noninvasive positive pressure ventilation: Improved -Deescalated to oxygen via nasal cannula 2 L a minute -/ #2 and 3 2. Fluid overload/CHF exacerbation: Improved 3. NSTEMI -Status post cardiac catheterization with PCI to left anterior descending 4. Left lower lobe pneumonia and tracheobronchitis -started on abx per pulm 5. Diabetes mellitus with hyperglycemia without DKA -improved control 6. Hypertension 7. Chronic BPH 8. History of gout 9. End-stage renal disease on hemodialysis 10. RUE discomfort Plan:- -For his right upper extremity pain and discomfort, will get Dopplers as well as x-rays -Physical therapy evaluation -Continue antibiotics, appreciate pulmonary input -Resume home hypoglycemic regimen -Continue all other supportive care, patient cleared for transfer to telemetry floor by cardiology. DVT GI prophylaxis: Heparin, Protonix Result Diagram: 12/26/18 0446 12/26/18 0446 Results 24hrs Laboratory Tests Test 12/25/18 14:09 12/25/18 16:36 12/25/18 18:01 12/25/18 20:04 Bedside Glucose 110 108 121 145 Test 12/25/18 22:09 12/26/18 00:40 12/26/18 02:17 12/26/18 03:56 Bedside Glucose 152 136 118 164 Test 12/26/18 04:46 12/26/18 08:04 12/26/18 11:30 White Blood Count 15.1 #H Red Blood Count 3.60 L Hemoglobin 10.5 L Hematocrit 33.4 L Mean Corpuscular 92.8 Volume Mean Corpuscular 29.2 Hemoglobin Mean Corpuscular 31.4 L Hemoglobin Concent Red Cell 14.3 Distribution Width Platelet Count 258 Mean Platelet Volume 10.8 H Immature 0.500 H Granulocytes % Neutrophils % 81.9 H Lymphocytes % 7.4 L Monocytes % 9.4 Eosinophils % 0.4 Basophils % 0.4 Nucleated Red Blood 0.0 Cells % Immature 0.070 H Granulocytes # Neutrophils # 12.4 H Lymphocytes # 1.1 Monocytes # 1.4 H Eosinophils # 0.1 Basophils # 0.1 Nucleated Red Blood 0.0 Cells # Sodium Level 139 Potassium Level 4.8 Chloride Level 98 Carbon Dioxide Level 25 Anion Gap 16 H Blood Urea Nitrogen 55 H Creatinine 6.82 H Est Glomerular Filtrat Rate mL/min Glucose Level 147 Calcium Level 9.6 Phosphorus Level 8.9 H Magnesium Level 2.2 Bedside Glucose 164 211 Exam/Review of Systems Exam Vitals Vital Signs Date Temp Pulse Resp B/P (MAP) Pulse Ox O2 O2 Flow FiO2 Time Delivery Rate 12/26/18 65 18 100/33 94 11:00 (55) 12/26/18 Nasal 2.0 10:00 Cannula 12/26/18 97.8 08:00 12/24/18 50 15:03 Intake and Output 12/25/18 12/25/18 12/26/18 1515:00 23:00 07:00 IntakeIntake Total 42.0 ml 378.5 ml 655.0 ml OutputOutput Total 25 ml 125 ml 50 ml BalanceBalance 17.0 ml 253.5 ml 605.0 ml Results Results 24hrs Laboratory Tests Test 12/25/18 14:09 12/25/18 16:36 12/25/18 18:01 12/25/18 20:04 Bedside Glucose 110 108 121 145 Test 12/25/18 22:09 12/26/18 00:40 12/26/18 02:17 12/26/18 03:56 Bedside Glucose 152 136 118 164 Test 12/26/18 04:46 12/26/18 08:04 12/26/18 11:30 White Blood Count 15.1 #H Red Blood Count 3.60 L Hemoglobin 10.5 L Hematocrit 33.4 L Mean Corpuscular 92.8 Volume Mean Corpuscular 29.2 Hemoglobin Mean Corpuscular 31.4 L Hemoglobin Concent Red Cell 14.3 Distribution Width Platelet Count 258 Mean Platelet Volume 10.8 H Immature 0.500 H Granulocytes % Neutrophils % 81.9 H Lymphocytes % 7.4 L Monocytes % 9.4 Eosinophils % 0.4 Basophils % 0.4 Nucleated Red Blood 0.0 Cells % Immature 0.070 H Granulocytes # Neutrophils # 12.4 H Lymphocytes # 1.1 Monocytes # 1.4 H Eosinophils # 0.1 Basophils # 0.1 Nucleated Red Blood 0.0 Cells # Sodium Level 139 Potassium Level 4.8 Chloride Level 98 Carbon Dioxide Level 25 Anion Gap 16 H Blood Urea Nitrogen 55 H Creatinine 6.82 H Est Glomerular Filtrat Rate mL/min Glucose Level 147 Calcium Level 9.6 Phosphorus Level 8.9 H Magnesium Level 2.2 Bedside Glucose 164 211 Medications Medication Current Medications Ipratropium [place] (Atrovent Hfa) 4 puff Q4H RESP THERAPY PRN INH SHORTNESS OF BREATH; Start 12/24/18 at 05:00 Nitroglycerin (Nitroglycerin (Sl Tab) 0.4 Mg) 1 tab Q5M PRN SL CHEST PAIN; Start 12/24/18 at 05:00 Acetaminophen (Tylenol Liquid) 650 mg Q6H PRN PO PAIN LEVEL 1-3 OR FEVER Last administered on 12/26/18at 05:46; Admin Dose 650 MG; Start 12/24/18 at 05:00 Levalbuterol (Xopenex Neb) 1.25 mg Q4H RESP THERAPY PRN HHN SHORTNESS OF BREATH; Start 12/24/18 at 05:00 Calcitriol (Rocaltrol) 0.25 mcg DAILY PO Last administered on 12/26/18at 08:18; Admin Dose 0.25 MCG; Start 12/25/18 at 09:00 Docusate Sodium (Colace) 100 mg DAILY PRN PO CONSTIPATION; Start 12/24/18 at 09:30 Magnesium Oxide (Mag-Ox 400) 400 mg DAILY PO Last administered on 12/26/18at 08:17; Admin Dose 400 MG; Start 12/25/18 at 09:00 Tamsulosin HCl (Flomax) 0.4 mg HS PO Last administered on 12/25/18at 21:06; Admin Dose 0.4 MG; Start 12/24/18 at 21:00 Morphine Sulfate (morphine) 2 mg Q2H PRN IV SEVERE PAIN LEVEL 7-10 Last administered on 12/25/18at 18:02; Admin Dose 2 MG; Start 12/24/18 at 16:30 Aspirin (Halfprin) 81 mg DAILY PO Last administered on 12/26/18at 08:17; Admin Dose 81 MG; Start 12/24/18 at 19:00 Zolpidem Tartrate (Ambien) 5 mg HS MAY REPEAT X 1 PRN PO INSOMNIA Last administered on 12/25/18at 03:58; Admin Dose 5 MG; Start 12/25/18 at 01:00 Clopidogrel Bisulfate (plaVIX) 75 mg DAILY PO Last administered on 12/26/18at 08:17; Admin Dose 75 MG; Start 12/26/18 at 09:00 Insulin Aspart (Novolog Insulin Pen) NOVOLOG *MODERATE* ALGORITHM WITH MEALS BEDTIME SC Last administered on 12/26/18 11:51; Admin Dose 43 UNIT; Start 12/26/18 at 07:35 Miscellaneous Information 1 ea NOTE XX ; Start 12/26/18 at 05:00 Glucose (Glutose) 15 gm Q15M PRN PO DECREASED GLUCOSE; Start 12/26/18 at 05:00 Glucose (Glutose) 22.5 gm Q15M PRN PO DECREASED GLUCOSE; Start 12/26/18 at 05:00 Dextrose (D50w Syringe) 25 ml Q15M PRN IV DECREASED GLUCOSE; Start 12/26/18 at 05:00 Dextrose (D50w Syringe) 50 ml Q15M PRN IV DECREASED GLUCOSE; Start 12/26/18 at 05:00 Glucagon (Glucagen) 1 mg Q15M PRN IM DECREASED GLUCOSE; Start 12/26/18 at 05:00 Glucose (Glutose) 15 gm Q15M PRN BUCCAL DECREASED GLUCOSE; Start 12/26/18 at 05:00 Multivit/Ca Carb/ B Cmplx/FA/Prenat (Drea-Grisel) 1 tab DAILY PO Last adminis tered on 12/26/18at 08:18; Admin Dose 1 TAB; Start 12/26/18 at 09:00 Sevelamer Carbonate (Renvela) 800 mg WITH MEALS PO Last administered on 12/26/18at 11:51; Admin Dose 800 MG; Start 12/26/18 at 11:30 Carvedilol (Coreg) 6.25 mg BID PO Last administered on 12/26/18at 08:18; Admin Dose 6.25 MG; Start 12/26/18 at 09:00 Losartan Potassium (Cozaar) 25 mg DAILY PO ; Start 12/27/18 at 09:00 Cefepime HCl 50 ml @ 100 mls/hr Q24H IVPB Last administered on 12/26/18at 10:38; Admin Dose 100 MLS/HR; Start 12/26/18 at 09:30 Famotidine (Pepcid) 20 mg DAILY PO ; Start 12/27/18 at 09:00 Acetaminophen/ Hydrocodone Bitart ([place] (5/325)) 1 tab Q4H PRN PO MODERATE PAIN LEVEL 4-6 Last administered on 12/26/18at 12:19; Admin Dose 1 TAB; Start 12/26/18 at 12:30 ESTELA GIVENS December 26, 2018 12:56
--- NOTE | 2018-12-26 16:18 | RADRPT ---
Vent Rate: 71 bpm RR Interval: 840 msec VA Interval: 79 msec QRS Duration: 94 msec QT Interval: 677 msec QTC Interval: 739 msec P-R-T [place]: 0 - -11 - 230 degrees Sinus rhythm...normal P axis, V-rate 50- 99 Abnormal T, consider ischemia, diffuse leads...T <-0.20mV, ant/lat/inf Prolonged QT interval...QTc >500mS Electronically Signed By: Charles Springer
[2018-12-26] MEDS: TAMSULOSIN (SR) 0.4 MG CAP PO SCH (20:24)
[2018-12-27] VITALS (11 sets, daily range): BP systolic 115–136; BP diastolic 49–62; PULSE 73–85; RESP 15–20
[2018-12-27] MEDS: morphine 2 MG INJ IV PRN (03:04)
[2018-12-27] MEDS: INSULIN ASPART [NOVOLOG] 3 ML PEN SC SCH ×7 (07:56→20:51)
--- NOTE | 2018-12-27 08:18 | CONS ---
Consult Date/Type/Reason Admit Date/Time December 24, 2018 at 04:04 Initial Consult Date 12/24/18 Requesting Provider: ESTELA GIVENS Date/Time of Note DATE: 12/27/18 TIME: 08:15 Subjective Interventional cardiology follow-up progress note Subjective: Discussed with the staff and telemetry was reviewed patient remains in sinus rhythm. He denies any chest pain or pressure today. No groin pain no palpitations he c/o R arm pain Objective: General: Obese gentleman in no acute distress HEENT: NC/AT. pupils are equal. round. NECK:. no stridor. CV: RRR. systolic murmur; no gallop or rubs. PULM: no wheezing . no rhonchi. GI: SOFT, NT, ND, no rebound or guarding Extremity: trace B/L LE edema. no clubbing. neuro: awake and alert, OX3. Psych: calm and pleasant rectal: deferred vascular: Right femoral no bleeding no hematoma EKG was personally reviewed shows sinus tachycardia. Anteroseptal infarct age undetermined. The vertical conduction delay Echocardiogram was personally reviewed which shows: Normal left ventricular cavity size. Sigmoid septum. Moderate global left ventricular systolic dysfunction. Ejection fraction is visually estimated at 35-40 %. Tissue Doppler/Mitral Doppler indices are consistent with impaired relaxation (Stage I diastolic dysfunction). Multiple segmental wall motion abnormalities. These segments of the LV are hypokinetic mid anterior segment, apical anterior segment, apical lateral segment, inferior apex segment, apex and apical septum. The left atrium is normal in size. Mild mitral leaflet calcification. Mild mitral annular calcification. Trace mitral regurgitation. No hemodynamically significant aortic stenosis by doppler. Aortic cusps appear mildly calcified. Normal appearance of the tricuspid valve. Estimated peak PA systolic pressure 35 mmHg. There is mild tricuspid regurgitation. Dilated IVC without respiratory collapse, however, patient on BI-PAP. Objective Vitals Vital Signs Date Temp Pulse Resp B/P (MAP) Pulse Ox O2 O2 Flow FiO2 Time Delivery Rate 12/27/18 98.3 82 16 134/61 94 Nasal 2.0 07:23 (85) Cannula 12/24/18 50 15:03 Intake and Output 12/26/18 12/26/18 12/27/18 1515:00 23:00 07:00 IntakeIntake Total 300 ml 210 ml 150 ml OutputOutput Total 1945 ml BalanceBalance 300 ml -1735 ml 150 ml Results/Medications Result Diagram: 12/27/18 0538 12/27/18 0538 Results 24 hrs Laboratory Tests Test 12/26/18 11:30 12/26/18 16:28 12/26/18 20:15 12/27/18 05:38 Bedside Glucose 211 97 111 White Blood Count 13.5 H Red Blood Count 3.53 L Hemoglobin 10.4 L Hematocrit 32.2 L Mean Corpuscular 91.2 Volume Mean Corpuscular 29.5 Hemoglobin Mean Corpuscular 32.3 Hemoglobin Concent Red Cell 14.4 Distribution Width Platelet Count 239 Mean Platelet Volume 10.5 H Immature 0.400 Granulocytes % Neutrophils % 82.9 H Lymphocytes % 8.4 L Monocytes % 7.7 Eosinophils % 0.2 Basophils % 0.4 Nucleated Red Blood 0.0 Cells % Immature 0.060 H Granulocytes # Neutrophils # 11.2 H Lymphocytes # 1.1 Monocytes # 1.0 H Eosinophils # 0.0 Basophils # 0.1 Nucleated Red Blood 0.0 Cells # Sodium Level 139 Potassium Level 4.4 Chloride Level 98 Carbon Dioxide Level 28 Anion Gap 13 Blood Urea Nitrogen 37 #H Creatinine 5.59 H Est Glomerular Filtrat Rate mL/min Glucose Level 186 Calcium Level 9.2 Magnesium Level 2.2 Total Bilirubin 0.4 Direct Bilirubin 0.00 Indirect Bilirubin 0.4 Aspartate Amino 24 Transf (AST/SGOT) Alanine 9 L Aminotransferase (AL T/SGPT) Alkaline Phosphatase 94 Creatine Kinase 53 Creatine Kinase 3.5 Index Creatinine Kinase MB 1.84 (Mass) Troponin I 5.440 *H Total Protein 7.5 Albumin 3.9 Globulin 3.60 H Albumin/Globulin 1.08 Ratio Test 12/27/18 07:54 Bedside Glucose 218 Home Meds Reported Medications Magnesium Oxide* (Mag-Oxide*) 400 Mg Tablet, 400 MG PO DAILY, TAB 12/24/18 Losartan-Hydrochlorothiazide (Losartan-HCTZ) 100-12.5 Mg Tab, 1 TAB ORAL DAILY 12/24/18 Tamsulosin Hcl* (Flomax*) 0.4 Mg Cap.er.24h, 0.4 MG PO HS, CAP 12/24/18 Carvedilol* (Carvedilol*) 6.25 Mg Tablet, 1 TAB ORAL BID 12/24/18 Ergocalciferol (Vitamin D2) (VITAMIN D2) 50,000 Unit Capsule, 1 CAP ORAL WEEKLY 12/24/18 Ranitidine Hcl* (Ranitidine Hcl*) 300 Mg Tablet, 300 MG PO DAILY, #30 TAB 12/24/18 Trazodone Hcl* (Trazodone Hcl*) 100 Mg Tablet, 100 MG PO QHS, #30 TAB 12/24/18 Allopurinol* (Allopurinol*) 300 Mg Tablet, 300 MG PO DAILY, TAB 12/24/18 Docusate Sodium* (Docusate Sodium*) 100 Mg Capsule, 100 MG PO DAILY PRN for CONSTIPATION, #30 CAP 12/24/18 Levocetirizine Dihydrochloride (LEVOCETIRIZINE DIHYDROCHLORIDE) 5 Mg Tablet, 1 TAB ORAL DAILY 12/24/18 Insulin Glargine* (Lantus*) 100 Unit/Ml Soln, 25-30 UNIT SC QHS, #1 VIAL 12/24/18 Sulfamethoxazole/Trimethoprim (Sulfamethoxazole-Tmp Ds Tablet) 1 Each Tablet, 1 TAB ORAL DAILY 12/24/18 Calcitriol* (Rocaltrol*) 0.25 Mcg Capsule, 0.25 MCG PO DAILY, CAP 12/24/18 Medications Current Medications Ipratropium [place] (Atrovent Hfa) 4 puff Q4H RESP THERAPY PRN INH SHORTNESS OF BREATH; Start 12/24/18 at 05:00 Nitroglycerin (Nitroglycerin (Sl Tab) 0.4 Mg) 1 tab Q5M PRN SL CHEST PAIN; Start 12/24/18 at 05:00 Acetaminophen (Tylenol Liquid) 650 mg Q6H PRN PO PAIN LEVEL 1-3 OR FEVER Last administered on 12/26/18at 05:46; Admin Dose 650 MG; Start 12/24/18 at 05:00 Levalbuterol (Xopenex Neb) 1.25 mg Q4H RESP THERAPY PRN HHN SHORTNESS OF BREATH; Start 12/24/18 at 05:00 Calcitriol (Rocaltrol) 0.25 mcg DAILY PO Last administered on 12/26/18at 08:18; Admin Dose 0.25 MCG; Start 12/25/18 at 09:00 Docusate Sodium (Colace) 100 mg DAILY PRN PO CONSTIPATION Last administered on 12/26/18at 20:24; Admin Dose 100 MG; Start 12/24/18 at 09:30 Magnesium Oxide (Mag-Ox 400) 400 mg DAILY PO Last administered on 12/26/18at 08:17; Admin Dose 400 MG; Start 12/25/18 at 09:00 Tamsulosin HCl (Flomax) 0.4 mg HS PO Last administered on 12/26/18at 20:24; Admin Dose 0.4 MG; Start 12/24/18 at 21:00 Morphine Sulfate (morphine) 2 mg Q2H PRN IV SEVERE PAIN LEVEL 7-10 Last administered on 12/27/18at 03:04; Admin Dose 2 MG; Start 12/24/18 at 16:30 Aspirin (Halfprin) 81 mg DAILY PO Last administered on 12/26/18at 08:17; Admin Dose 81 MG; Start 12/24/18 at 19:00 Zolpidem Tartrate (Ambien) 5 mg HS MAY REPEAT X 1 PRN PO INSOMNIA Last admin istered on 12/25/18at 03:58; Admin Dose 5 MG; Start 12/25/18 at 01:00 Clopidogrel Bisulfate (plaVIX) 75 mg DAILY PO Last administered on 12/26/18at 08:17; Admin Dose 75 MG; Start 12/26/18 at 09:00 Insulin Aspart (Novolog Insulin Pen) NOVOLOG *MODERATE* ALGORITHM WITH MEALS BEDTIME SC Last administered on 12/27/18at 07:56; Admin Dose 4 UNIT; Start 12/26/18 at 07:35 Miscellaneous Information 1 ea NOTE XX ; Start 12/26/18 at 05:00 Glucose (Glutose) 15 gm Q15M PRN PO DECREASED GLUCOSE; Start 12/26/18 at 05:00 Glucose (Glutose) 22.5 gm Q15M PRN PO DECREASED GLUCOSE; Start 12/26/18 at 05:00 Dextrose (D50w Syringe) 25 ml Q15M PRN IV DECREASED GLUCOSE; Start 12/26/18 at 05:00 Dextrose (D50w Syringe) 50 ml Q15M PRN IV DECREASED GLUCOSE; Start 12/26/18 at 05:00 Glucagon (Glucagen) 1 mg Q15M PRN IM DECREASED GLUCOSE; Start 12/26/18 at 05:00 Glucose (Glutose) 15 gm Q15M PRN BUCCAL DECREASED GLUCOSE; Start 12/26/18 at 05:00 Multivit/Ca Carb/ B Cmplx/FA/Prenat ([place]rea-Grisel) 1 tab DAILY PO Last administered on 12/26/18 08:18; Admin Dose 1 TAB; Start 12/26/18 at 09:00 Sevelamer Carbonate (Renvela) 800 mg WITH MEALS PO Last administered on 12/26/18 16:23; Admin Dose 800 MG; Start 12/26/18 at 11:30 Carvedilol (Coreg) 6.25 mg BID PO Last administered on 12/26/18 08:18; Admin Dose 6.25 MG; Start 12/26/18 at 09:00 Losartan Potassium (Cozaar) 25 mg DAILY PO ; Start 12/27/18 at 09:00 Cefepime HCl 50 ml @ 100 mls/hr Q24H IVPB Last administered on 12/26/18at 10:38; Admin Dose 100 MLS/HR; Start 12/26/18 at 09:30 Famotidine (Pepcid) 20 mg DAILY PO ; Start 12/27/18 at 09:00 Acetaminophen/ Hydrocodone Bitart ([place] (5/325)) 1 tab Q4H PRN PO MODERATE PAIN LEVEL 4-6 Last administered on 12/26/18at 16:41; Admin Dose 1 TAB; Start 12/26/18 at 12:30 Insulin Glargine (Lantus) 16 units DAILY@0800 SC ; Start 12/27/18 at 08:00 Insulin Aspart (Novolog Insulin Pen) 5 unit WITH MEALS SC Last administered on 12/27/18 07:57; Admin Dose 5 UNIT; Start 12/26/18 at 17:35 Assessment/Plan Hospital Course (Demo Recall) Non-ST elevation myocardial infarction: SP PCI LAD 12/25/18 Hypertension Congestive heart failure acute on chronic secondary systolic heart failure Respiratory failure Renal failure on dialysis Diabetes Dyslipidemia History of gout Headache: CT of the head done December 25 did not show any evidence of acute CVA, ? Related to sinusitis versus others. Will defer to internal medicine team Recommendations: Aspirin plavix will be continued. We will decrease Coreg to avoid hypotension Insulin as per internal medicine. Hemodialysis as per renal Continue with statin cont ARB Thank you for his referral. We will continue to follow along with you NORMA MARTINEZ MD [facility] NORMA MARTINEZ MD December 27, 2018 08:18
[2018-12-27] MEDS: FAMOTIDINE 20 MG TAB PO SCH (08:36)
[2018-12-27] MEDS: ASPIRIN (EC) 81 MG TAB PO SCH (08:36)
[2018-12-27] MEDS: SEVELAMER CARBONATE 800 MG TABLET PO SCH ×3 (08:36→17:25)
[2018-12-27] MEDS: CLOPIDOGREL 75 MG TAB PO SCH (08:36)
[2018-12-27] MEDS: CALCITRIOL 0.25 MCG CAP PO SCH (08:36)
[2018-12-27] MEDS: MULTIVIT/CA CARB/B CMPLX/FA TAB PO SCH (08:36)
[2018-12-27] MEDS: MAGNESIUM OXIDE 400 MG TAB PO SCH (08:36)
--- NOTE | 2018-12-27 08:36 | PN ---
DATE: 12/27/2018 SUBJECTIVE: The patient was transferred from ICU to telemetry. The patient is currently stable, no acute events overnight. OBJECTIVE: VITAL SIGNS: Blood pressure is 134/61, pulse 82, respirations 16, temperature 98.3. HEENT: Head is normocephalic. NECK: Supple. HEART: Regular rate. LUNGS: Show diminished breath sounds at the base. ABDOMEN: Soft, nontender to palpation without rebound or guarding. EXTREMITIES: Negative for clubbing, cyanosis, no edema. DERMATOLOGIC: No rashes. MUSCULOSKELETAL: No joint effusion. NEUROLOGIC: No change in exam. MEDICATIONS: Reviewed. LABORATORY DATA: Reviewed. ASSESSMENT AND PLAN: 1. End-stage renal disease. The patient will have hemodialysis tomorrow. 2. Anemia. Monitor hemoglobin and hematocrit levels. We will give Epogen with dialysis. 3. Mineral bone disorder, monitor calcium and phosphorus levels. Continue phosphate binders. 4. Hypertension. Continue current blood pressure regimen. 5. Non-ST elevation myocardial infarction, status post percutaneous coronary intervention to left an terior descending, continue medical management. Follow up with cardiology. 6. Volume overload, improved. 7. Acute hypoxemic respiratory failure, improving. Continue to monitor. 8. Diabetes. Continue current insulin regimen. 9. History of gout. Dictated By: ALLISON GALLOWAY DO NR/NTS Conf#: [id number] DID#: [id number] CC: SLIME PACK MD; ESTELA GIVENS MD; ARETHA ELIZALDE MD;*EndCC*
[2018-12-27] MEDS: LOSARTAN 25 MG TAB PO SCH (08:37)
[2018-12-27] MEDS: INSULIN GLARGINE [LANTus] (100 UNITS/ML) SYG SC SCH (08:38)
[2018-12-27] MEDS: CEFEPIME 1GM/50 ML (PMX) 50 ML IVPB SCH (08:38)
--- NOTE | 2018-12-27 09:42 | CONS ---
Assessment/Plan Assessment/Plan Assessment/Plan (Daily) Assessment and recommendations; 1. Patient admitted with hypoxemia due to left lower lobe pneumonia with CHF exacerbation with interval clinical improvement. 2. End-stage renal disease, hemodialysis dependent. 3. History of hypertension, BPH and diabetes. Continue current supportive care. Obtain follow-up chest x-ray 24 hours. Consultation Date/Type/Reason Admit Date/Time December 24, 2018 at 04:04 Initial Consult Date 12/24/18 Type of Consult Pulmonary/critical care Requesting Provider: ESTELA GIVENS Date/Time of Note DATE: 12/27/18 TIME: 09:41 24 HR Interval Summary Free Text/Dictation Patient's condition is stable. Has been transferred to medical floor from ICU. Denies any shortness of breath at rest. Any coughing or wheezing. General exam; elderly male, awake alert, currently no distress. Exam/Review of Systems Exam Vitals Vital Signs Date Temp Pulse Resp B/P (MAP) Pulse Ox O2 O2 Flow FiO2 Time Delivery Rate 12/27/18 85 08:21 12/27/18 98.3 16 134/61 94 Nasal 2.0 07:23 (85) Cannula 12/24/18 50 15:03 Intake and Output 12/26/18 12/26/18 12/27/18 1414:59 22:59 06:59 IntakeIntake Total 300 ml 210 ml 150 ml OutputOutput Total 1945 ml BalanceBalance 300 ml -1735 ml 150 ml Exam H EENT exam; supple neck, positive JVD. No lymphadenopathy. Midline trachea. No thyromegaly. No neck masses. Chest exam; diminished but clear breath sounds. S1-S2 audible, no murmurs. Regular rhythm. Abdomen exam; soft, nontender. No organomegaly. Bowel sounds audible. Extremity exam; trace edema. [employer] exam; no focal deficit. Results Result Diagram: 12/27/18 0538 12/27/18 0538 Results 24hrs Laboratory Tests Test 12/26/18 11:30 12/26/18 16:28 12/26/18 20:15 12/27/18 05:38 Bedside Glucose 211 97 111 White Blood Count 13.5 H Red Blood Count 3.53 L Hemoglobin 10.4 L Hematocrit 32.2 L Mean Corpuscular 91.2 Volume Mean Corpuscular 29.5 Hemoglobin Mean Corpuscular 32.3 Hemoglobin Concent Red Cell 14.4 Distribution Width Platelet Count 239 Mean Platelet Volume 10.5 H Immature 0.400 Granulocytes % Neutrophils % 82.9 H Lymphocytes % 8.4 L Monocytes % 7.7 Eosinophils % 0.2 Basophils % 0.4 Nucleated Red Blood 0.0 Cells % Immature 0.060 H Granulocytes # Neutrophils # 11.2 H Lymphocytes # 1.1 Monocytes # 1.0 H Eosinophils # 0.0 Basophils # 0.1 Nucleated Red Blood 0.0 Cells # Sodium Level 139 Potassium Level 4.4 Chloride Level 98 Carbon Dioxide Level 28 Anion Gap 13 Blood Urea Nitrogen 37 #H Creatinine 5.59 H Est Glomerular Filtrat Rate mL/min Glucose Level 186 Calcium Level 9.2 Magnesium Level 2.2 Total Bilirubin 0.4 Direct Bilirubin 0.00 Indirect Bilirubin 0.4 Aspartate Amino 24 Transf (AST/SGOT) Alanine 9 L Aminotransferase (AL T/SGPT) Alkaline Phosphatase 94 Creatine Kinase 53 Creatine Kinase 3.5 Index Creatinine Kinase MB 1.84 (Mass) Troponin I 5.440 *H Total Protein 7.5 Albumin 3.9 Globulin 3.60 H Albumin/Globulin 1.08 Ratio Test 12/27/18 07:54 Bedside Glucose 218 Medications Medication Current Medications Ipratropium [place] (Atrovent Hfa) 4 puff Q4H RESP THERAPY PRN INH SHORTNESS OF BREATH; Start 12/24/18 at 05:00 Nitroglycerin (Nitroglycerin (Sl Tab) 0.4 Mg) 1 tab Q5M PRN SL CHEST PAIN; Start 12/24/18 at 05:00 Acetaminophen (Tylenol Liquid) 650 mg Q6H PRN PO PAIN LEVEL 1-3 OR FEVER Last administered on 12/26/18at 05:46; Admin Dose 650 MG; Start 12/24/18 at 05:00 Levalbuterol (Xopenex Neb) 1.25 mg Q4H RESP THERAPY PRN HHN SHORTNESS OF BREATH; Start 12/24/18 at 05:00 Calcitriol (Rocaltrol) 0.25 mcg DAILY PO Last administered on 12/27/18at 08:36; Admin Dose 0.25 MCG; Start 12/25/18 at 09:00 Docusate Sodium (Colace) 100 mg DAILY PRN PO CONSTIPATION Last administered on 12/26/18at 20:24; Admin Dose 100 MG; Start 12/24/18 at 09:30 Magnesium Oxide (Mag-Ox 400) 400 mg DAILY PO Last administered on 12/27/18 08:36; Admin Dose 400 MG; Start 12/25/18 at 09:00 Tamsulosin HCl (Flomax) 0.4 mg HS PO Last administered on 12/26/18 20:24; Admin Dose 0.4 MG; Start 12/24/18 at 21:00 Morphine Sulfate (morphine) 2 mg Q2H PRN IV SEVERE PAIN LEVEL 7-10 Last administered on 12/27/18 03:04; Admin Dose 2 MG; Start 12/24/18 at 16:30 Aspirin (Halfprin) 81 mg DAILY PO Last administered on 12/27/18 08:36; Admin Dose 81 MG; Start 12/24/18 at 19:00 Zolpidem Tartrate (Ambien) 5 mg HS MAY REPEAT X 1 PRN PO INSOMNIA Last administered on 12/25/18 03:58; Admin Dose 5 MG; Start 12/25/18 at 01:00 Clopidogrel Bisulfate (plaVIX) 75 mg DAILY PO Last administered on 12/27/18 08:36; Admin Dose 75 MG; Start 12/26/18 at 09:00 Insulin Aspart (Novolog Insulin Pen) NOVOLOG *MODERATE* ALGORITHM WITH MEALS BEDTIME SC Last administered on 12/27/18at 07:56; Admin Dose 4 UNIT; Start 12/26/18 at 07:35 Miscellaneous Information 1 ea NOTE XX ; Start 12/26/18 at 05:00 Glucose (Glutose) 15 gm Q15M PRN PO DECREASED GLUCOSE; Start 12/26/18 at 05:00 Glucose (Glutose) 22.5 gm Q15M PRN PO DECREASED GLUCOSE; Start 12/26/18 at 05:00 Dextrose (D50w Syringe) 25 ml Q15M PRN IV DECREASED GLUCOSE; Start 12/26/18 at 05:00 Dextrose (D50w Syringe) 50 ml Q15M PRN IV DECREASED GLUCOSE; Start 12/26/18 at 05:00 Glucagon (Glucagen) 1 mg Q15M PRN IM DECREASED GLUCOSE; Start 12/26/18 at 05:00 Glucose (Glutose) 15 gm Q15M PRN BUCCAL DECREASED GLUCOSE; Start 12/26/18 at 05:00 Multivit/Ca Carb/ B Cmplx/FA/Prenat ([place]rea-Grisel) 1 tab DAILY PO Last administered on 12/27/18 08:36; Admin Dose 1 TAB; Start 12/26/18 at 09:00 Sevelamer Carbonate (Renvela) 800 mg WITH MEALS PO Last administered on 12/27/18 08:36; Admin Dose 800 MG; Start 12/26/18 at 11:30 Carvedilol (Coreg) 6.25 mg BID PO Last administered on 12/27/18 08:37; Admin Dose 6.25 MG; Start 12/26/18 at 09:00 Losartan Potassium (Cozaar) 25 mg DAILY PO Last administered on 12/27/18 08:37; Admin Dose 25 MG; Start 12/27/18 at 09:00 Cefepime HCl 50 ml @ 100 mls/hr Q24H IVPB Last administered on 12/27/18 08:38; Admin Dose 100 MLS/HR; Start 12/26/18 at 09:30 Famotidine (Pepcid) 20 mg DAILY PO Last administered on 12/27/18 08:36; Admin Dose 20 MG; Start 12/27/18 at 09:00 Acetaminophen/ Hydrocodone Bitart ([place] (5/325)) 1 tab Q4H PRN PO MODERATE PAIN LEVEL 4-6 Last administered on 12/26/18 16:41; Admin Dose 1 TAB; Start 12/26/18 at 12:30 Insulin Glargine (Lantus) 16 units DAILY@0800 SC Last administered on 12/27/18 08:38; Admin Dose 16 UNITS; Start 12/27/18 at 08:00 Insulin Aspart (Novolog Insulin Pen) 5 unit WITH MEALS SC Last administered on 12/27/18 07:57; Admin Dose 5 UNIT; Start 12/26/18 at 17:35 BARBRA RODNEY December 27, 2018 09:42
--- NOTE | 2018-12-27 11:29 | PN ---
Date/Time of Note Date/Time of Note DATE: 12/27/18 TIME: 11:28 Assessment/Plan VTE Prophylaxis Risk score (from Ns)>0 risk: 5 SCD applied (from Ns): Yes Pharmacological prophylaxis: heparin (?? also on dual antiplatelet) Lines/Catheters IV Catheter Type (from [facility]): Peripheral IV Urinary Cath still in place: Yes Reason Cath still needed: other (indicate) Assessment/Plan Hospital Course Subjective: no new complaints Objective: Constitutional: alert, oriented Head: atraumatic, normocephalic Neck: non-tender, supple Respiratory: clear to auscultation, diminished Cardiovascular: regular rate and rhythm Gastrointestinal: S/ NT / ND / +BS Assessment and plan: 1. Acute respiratory failure status post noninvasive positive pressure ventilation: Improved -Deescalated to oxygen via nasal cannula 2 L a minute -2/2 #2 and 3 2. Fluid overload/CHF exacerbation: Improved 3. NSTEMI -Status post cardiac catheterization with PCI to left anterior descending 4. Left lower lobe pneumonia and tracheobronchitis -started on abx per pulm 5. Diabetes mellitus with hyperglycemia without DKA -improved control 6. Hypertension 7. Chronic BPH 8. History of gout 9. End-stage renal disease on hemodialysis 10. UTI 11. cephalic VV thrombosis R UE 12. Concern on CT of the brain for pseudotumor cerebri versus idiopathic intracranial hypertension -Ct was done to workup headache, now resolved Plan:- -Follow-up physical therapy as well as occupational therapy evaluation and recommendations and begin discharge planning. -We will get neurology review regarding CT of the brain findings. Can likely be worked up as outpatient as patient is asymptomatic. -Continue antibiotics, appreciate pulmonary input -Resume home hypoglycemic regimen -Continue all other supportive care, will get cardiology clearance for possible MedSurg transfer. Again DC planning. -Wean off O2 DVT GI prophylaxis: Heparin, Protonix Result Diagram: 12/27/18 0538 12/27/18 0538 Results 24hrs Laboratory Tests Test 12/26/18 11:30 12/26/18 16:28 12/26/18 20:15 12/27/18 05:38 Bedside Glucose 211 97 111 White Blood Count 13.5 H Red Blood Count 3.53 L Hemoglobin 10.4 L Hematocrit 32.2 L Mean Corpuscular 91.2 Volume Mean Corpuscular 29.5 Hemoglobin Mean Corpuscular 32.3 Hemoglobin Concent Red Cell 14.4 Distribution Width Platelet Count 239 Mean Platelet Volume 10.5 H Immature 0.400 Granulocytes % Neutrophils % 82.9 H Lymphocytes % 8.4 L Monocytes % 7.7 Eosinophils % 0.2 Basophils % 0.4 Nucleated Red Blood 0.0 Cells % Immature 0.060 H Granulocytes # Neutrophils # 11.2 H Lymphocytes # 1.1 Monocytes # 1.0 H Eosinophils # 0.0 Basophils # 0.1 Nucleated Red Blood 0.0 Cells # Sodium Level 139 Potassium Level 4.4 Chloride Level 98 Carbon Dioxide Level 28 Anion Gap 13 Blood Urea Nitrogen 37 #H Creatinine 5.59 H Est Glomerular Filtrat Rate mL/min Glucose Level 186 Calcium Level 9.2 Magnesium Level 2.2 Total Bilirubin 0.4 Direct Bilirubin 0.00 Indirect Bilirubin 0.4 Aspartate Amino 24 Transf (AST/SGOT) Alanine 9 L Aminotransferase (AL T/SGPT) Alkaline Phosphatase 94 Creatine Kinase 53 Creatine Kinase 3.5 Index Creatinine Kinase MB 1.84 (Mass) Troponin I 5.440 *H Total Protein 7.5 Albumin 3.9 Globulin 3.60 H Albumin/Globulin 1.08 Ratio Test 12/27/18 07:54 Bedside Glucose 218 Exam/Review of Systems Exam Vitals Vital Signs Date Temp Pulse Resp B/P (MAP) Pulse Ox O2 O2 Flow FiO2 Time Delivery Rate 12/27/18 85 08:21 12/27/18 98.3 16 134/61 94 Nasal 2.0 07:23 (85) Cannula 12/24/18 50 15:03 Intake and Output 12/26/18 12/26/18 12/27/18 1515:00 23:00 07:00 IntakeIntake Total 300 ml 210 ml 150 ml OutputOutput Total 1945 ml BalanceBalance 300 ml -1735 ml 150 ml Results Results 24hrs Laboratory Tests Test 12/26/18 11:30 12/26/18 16:28 12/26/18 20:15 12/27/18 05:38 Bedside Glucose 211 97 111 White Blood Count 13.5 H Red Blood Count 3.53 L Hemoglobin 10.4 L Hematocrit 32.2 L Mean Corpuscular 91.2 Volume Mean Corpuscular 29.5 Hemoglobin Mean Corpuscular 32.3 Hemoglobin Concent Red Cell 14.4 Distribution Width Platelet Count 239 Mean Platelet Volume 10.5 H Immature 0.400 Granulocytes % Neutrophils % 82.9 H Lymphocytes % 8.4 L Monocytes % 7.7 Eosinophils % 0.2 Basophils % 0.4 Nucleated Red Blood 0.0 Cells % Immature 0.060 H Granulocytes # Neutrophils # 11.2 H Lymphocytes # 1.1 Monocytes # 1.0 H Eosinophils # 0.0 Basophils # 0.1 Nucleated Red Blood 0.0 Cells # Sodium Level 139 Potassium Level 4.4 Chloride Level 98 Carbon Dioxide Level 28 Anion Gap 13 Blood Urea Nitrogen 37 #H Creatinine 5.59 H Est Glomerular Filtrat Rate mL/min Glucose Level 186 Calcium Level 9.2 Magnesium Level 2.2 Total Bilirubin 0.4 Direct Bilirubin 0.00 Indirect Bilirubin 0.4 Aspartate Amino 24 Transf (AST/SGOT) Alanine 9 L Aminotransferase (AL T/SGPT) Alkaline Phosphatase 94 Creatine Kinase 53 Creatine Kinase 3.5 Index Creatinine Kinase MB 1.84 (Mass) Troponin I 5.440 *H Total Protein 7.5 Albumin 3.9 Globulin 3.60 H Albumin/Globulin 1.08 Ratio Test 12/27/18 07:54 Bedside Glucose 218 Medications Medication Current Medications Ipratropium [place] (Atrovent Hfa) 4 puff Q4H RESP THERAPY PRN INH SHORTNESS OF BREATH; Start 12/24/18 at 05:00 Nitroglycerin (Nitroglycerin (Sl Tab) 0.4 Mg) 1 tab Q5M PRN SL CHEST PAIN; Start 12/24/18 at 05:00 Acetaminophen (Tylenol Liquid) 650 mg Q6H PRN PO PAIN LEVEL 1-3 OR FEVER Last administered on 12/26/18at 05:46; Admin Dose 650 MG; Start 12/24/18 at 05:00 Levalbuterol (Xopenex Neb) 1.25 mg Q4H RESP THERAPY PRN HHN SHORTNESS OF BREATH; Start 12/24/18 at 05:00 Calcitriol (Rocaltrol) 0.25 mcg DAILY PO Last administered on 12/27/18at 08:36; Admin Dose 0.25 MCG; Start 12/25/18 at 09:00 Docusate Sodium (Colace) 100 mg DAILY PRN PO CONSTIPATION Last administered on 12/26/18at 20:24; Admin Dose 100 MG; Start 12/24/18 at 09:30 Magnesium Oxide (Mag-Ox 400) 400 mg DAILY PO Last administered on 12/27/18 08:36; Admin Dose 400 MG; Start 12/25/18 at 09:00 Tamsulosin HCl (Flomax) 0.4 mg HS PO Last administered on 12/26/18 20:24; Admin Dose 0.4 MG; Start 12/24/18 at 21:00 Morphine Sulfate (morphine) 2 mg Q2H PRN IV SEVERE PAIN LEVEL 7-10 Last administered on 12/27/18 03:04; Admin Dose 2 MG; Start 12/24/18 at 16:30 Aspirin (Halfprin) 81 mg DAILY PO Last administered on 12/27/18 08:36; Admin Dose 81 MG; Start 12/24/18 at 19:00 Zolpidem Tartrate (Ambien) 5 mg HS MAY REPEAT X 1 PRN PO INSOMNIA Last adminis tered on 12/25/18 03:58; Admin Dose 5 MG; Start 12/25/18 at 01:00 Clopidogrel Bisulfate (plaVIX) 75 mg DAILY PO Last administered on 12/27/18 08:36; Admin Dose 75 MG; Start 12/26/18 at 09:00 Insulin Aspart (Novolog Insulin Pen) NOVOLOG *MODERATE* ALGORITHM WITH MEALS BEDTIME SC Last administered on 12/27/18 07:56; Admin Dose 4 UNIT; Start 12/26/18 at 07:35 Miscellaneous Information 1 ea NOTE XX ; Start 12/26/18 at 05:00 Glucose (Glutose) 15 gm Q15M PRN PO DECREASED GLUCOSE; Start 12/26/18 at 05:00 Glucose (Glutose) 22.5 gm Q15M PRN PO DECREASED GLUCOSE; Start 12/26/18 at 05:00 Dextrose (D50w Syringe) 25 ml Q15M PRN IV DECREASED GLUCOSE; Start 12/26/18 at 05:00 Dextrose (D50w Syringe) 50 ml Q15M PRN IV DECREASED GLUCOSE; Start 12/26/18 at 05:00 Glucagon (Glucagen) 1 mg Q15M PRN IM DECREASED GLUCOSE; Start 12/26/18 at 05:00 Glucose (Glutose) 15 gm Q15M PRN BUCCAL DECREASED GLUCOSE; Start 12/26/18 at 05:00 Multivit/Ca Carb/ B Cmplx/FA/Prenat (Drea-Grisel) 1 tab DAILY PO Last ad ministered on 12/27/18 08:36; Admin Dose 1 TAB; Start 12/26/18 at 09:00 Sevelamer Carbonate (Renvela) 800 mg WITH MEALS PO Last administered on 12/27/18 08:36; Admin Dose 800 MG; Start 12/26/18 at 11:30 Carvedilol (Coreg) 6.25 mg BID PO Last administered on 12/27/18 08:37; Admin Dose 6.25 MG; Start 12/26/18 at 09:00 Losartan Potassium (Cozaar) 25 mg DAILY PO Last administered on 12/27/18 0 8:37; Admin Dose 25 MG; Start 12/27/18 at 09:00 Cefepime HCl 50 ml @ 100 mls/hr Q24H IVPB Last administered on 12/27/18 08:38; Admin Dose 100 MLS/HR; Start 12/26/18 at 09:30 Famotidine (Pepcid) 20 mg DAILY PO Last administered on 12/27/18 08:36; Admin Dose 20 MG; Start 12/27/18 at 09:00 Acetaminophen/ Hydrocodone Bitart ([place] (5/325)) 1 tab Q4H PRN PO MODERATE PAIN LEVEL 4-6 Last administered on 12/26/18 16:41; Admin Dose 1 TAB; Start 12/26/18 at 12:30 Insulin Glargine (Lantus) 16 units DAILY@0800 SC Last administered on 12/27/18 08:38; Admin Dose 16 UNITS; Start 12/27/18 at 08:00 Insulin Aspart (Novolog Insulin Pen) 5 unit WITH MEALS SC Last administered on 12/27/18 07:57; Admin Dose 5 UNIT; Start 12/26/18 at 17:35 Nystatin (Nystatin Powder) 1 applic BID TOP ; Start 12/27/18 at 12:30 ESTELA GIVENS December 27, 2018 11:29
[2018-12-27] MEDS: NYSTATIN 30 GM POWDER BTL TOP SCH ×2 (15:33→20:51)
--- NOTE | 2018-12-27 16:47 | CONS ---
Assessment/Plan Assessment/Plan Hospital Course 78 yo M with multiple comorbidities who initially presented for evaluation of severe respiratory distress. On 12/25, there was c/o severe headaches, prompting a CTH that was concerning for intracranial hypertension... for which neurology is consulted. The clinical picture is inconsistent with pseudotumor cerebri. P: Ok to defer additional neuroimaging for now Pain and other medical management per primary Will follow clinically, to recommend neurologic studies, as necessary. Consultation Date/Type/Reason Admit Date/Time December 24, 2018 at 04:04 Type of Consult Neurology Reason for Consultation eval for idiopathic intracranial hypertension Requesting Provider: ESTELA GIVENS Date/Time of Note DATE: 12/27/18 TIME: 16:47 Hx of Present Illness The pt is currently a limited historian. He currently denies headache, dizziness, weakness, lethargy or confusion, vision or speech changes, gait instability. It is additionally elsewhere noted: Hx of Present Illness Chief complaint: Shortness of breath This is a 78-year-old male who was brought via ambulance to [facility] emergency department in extremities and as a possible STEMI. When patient arrived in the emergency department via EMS he was noted to be in severe respiratory distress and was placed on CPAP in route. The ED physician did order a stat EKG which she stated did not appear to be a STEMI. In the emergency department patient was noted to have elevated blood pressures in the 170s. On examination of his lungs he had diffuse crackles/rales and wheezing. BiPAP and nitroglycerin were initiated which did result in improvement of patient's symptoms. His daughter was present with him at the bedside. She states that over the last week he has been having a cough. He has been going to his regular dialysis appointments. Daughter stated that for the cough patient was recently started on Bactrim on Monday and and then this morning woke up short of breath.vomiting. He denies chest pain nausea vomiting or diarrhea. negative unless noted otherwise in HPI Exam/Review of Systems Exam Vitals Vital Signs Date Temp Pulse Resp B/P (MAP) Pulse Ox O2 O2 Flow FiO2 Time Delivery Rate 12/27/18 3.0 16:36 12/27/18 76 16:11 12/27/18 97.7 15 115/56 98 Nasal 15:22 (75) Cannula 12/24/18 50 15:03 Intake and Output 12/26/18 12/26/18 12/27/18 1515:00 23:00 07:00 IntakeIntake Total 300 ml 210 ml 150 ml OutputOutput Total 1945 ml BalanceBalance 300 ml -1735 ml 150 ml Exam PE: Gen Appearance: No Apparent Distress HEENT: Normocephalic Cardiovascular: Regular rate Lungs: Clear bilaterally Abdomen: Soft Extremities: Dry NE: The patient was alert and oriented. Language was normal. Fund of knowledge was normal. Pupils were equal and reactive to light. There was no afferent pupillary defect. Visual merritt were normal. Funduscopic examination was limited. Extra-ocular movements were full. Ptosis was absent. There was no nystagmus. Facial sensation was normal. Face was symmetric with normal strength. Hearing was intact. Palate movements were normal. Neck strength was normal. There was normal tongue bulk and speed of movement. Tone was normal. Muscle bulk was normal. I did not see fasciculations. Arms and legs were strong. Vibration sensation was normal. Temperature and pinprick sensation was normal. Rapid alternating movements were normal. There was no dysmetria. There was no in tention tremor. Gait was deferred due to bedrest. Arm and leg reflexes were 2+ and symmetric. Arguelles's sign was absent. Plantar responses were flexor. Results Result Diagram: 12/27/18 0538 12/27/18 0538 Results 24hrs Laboratory Tests Test 12/26/18 20:15 12/27/18 05:38 12/27/18 07:54 12/27/18 11:55 Bedside Glucose 111 218 245 H White Blood Count 13.5 H Red Blood Count 3.53 L Hemoglobin 10.4 L Hematocrit 32.2 L Mean Corpuscular 91.2 Volume Mean Corpuscular 29.5 Hemoglobin Mean Corpuscular 32.3 Hemoglobin Concent Red Cell 14.4 Distribution Width Platelet Count 239 Mean Platelet Volume 10.5 H Immature 0.400 Granulocytes % Neutrophils % 82.9 H Lymphocytes % 8.4 L Monocytes % 7.7 Eosinophils % 0.2 Basophils % 0.4 Nucleated Red Blood 0.0 Cells % Immature 0.060 H Granulocytes # Neutrophils # 11.2 H Lymphocytes # 1.1 Monocytes # 1.0 H Eosinophils # 0.0 Basophils # 0.1 Nucleated Red Blood 0.0 Cells # Sodium Level 139 Potassium Level 4.4 Chloride Level 98 Carbon Dioxide Level 28 Anion Gap 13 Blood Urea Nitrogen 37 #H Creatinine 5.59 H Est Glomerular Filtrat Rate mL/min Glucose Level 186 Calcium Level 9.2 Magnesium Level 2.2 Total Bilirubin 0.4 Direct Bilirubin 0.00 Indirect Bilirubin 0.4 Aspartate Amino 24 Transf (AST/SGOT) Alanine 9 L Aminotransferase (AL T/SGPT) Alkaline Phosphatase 94 Creatine Kinase 53 Creatine Kinase 3.5 Index Creatinine Kinase MB 1.84 (Mass) Troponin I 5.440 *H Total Protein 7.5 Albumin 3.9 Globulin 3.60 H Albumin/Globulin 1.08 Ratio Medications Medication Current Medications Ipratropium [place] (Atrovent Hfa) 4 puff Q4H RESP THERAPY PRN INH SHORTNESS OF BREATH; Start 12/24/18 at 05:00 Nitroglycerin (Nitroglycerin (Sl Tab) 0.4 Mg) 1 tab Q5M PRN SL CHEST PAIN; Start 12/24/18 at 05:00 Acetaminophen (Tylenol Liquid) 650 mg Q6H PRN PO PAIN LEVEL 1-3 OR FEVER Last administered on 12/26/18at 05:46; Admin Dose 650 MG; Start 12/24/18 at 05:00 Levalbuterol (Xopenex Neb) 1.25 mg Q4H RESP THERAPY PRN HHN SHORTNESS OF BREATH; Start 12/24/18 at 05:00 Calcitriol (Rocaltrol) 0.25 mcg DAILY PO Last administered on 12/27/18 08:36; Admin Dose 0.25 MCG; Start 12/25/18 at 09:00 Docusate Sodium (Colace) 100 mg DAILY PRN PO CONSTIPATION Last administered on 12/26/18 20:24; Admin Dose 100 MG; Start 12/24/18 at 09:30 Magnesium Oxide (Mag-Ox 400) 400 mg DAILY PO Last administered on 12/27/18 08:36; Admin Dose 400 MG; Start 12/25/18 at 09:00 Tamsulosin HCl (Flomax) 0.4 mg HS PO Last administered on 12/26/18 20:24; Admin Dose 0.4 MG; Start 12/24/18 at 21:00 Morphine Sulfate (morphine) 2 mg Q2H PRN IV SEVERE PAIN LEVEL 7-10 Last administered on 12/27/18 03:04; Admin Dose 2 MG; Start 12/24/18 at 16:30 Aspirin (Halfprin) 81 mg DAILY PO Last administered on 12/27/18 08:36; Admin Dose 81 MG; Start 12/24/18 at 19:00 Zolpidem Tartrate (Ambien) 5 mg HS MAY REPEAT X 1 PRN PO INSOMNIA Last ad ministered on 12/25/18 03:58; Admin Dose 5 MG; Start 12/25/18 at 01:00 Clopidogrel Bisulfate (plaVIX) 75 mg DAILY PO Last administered on 12/27/18 08:36; Admin Dose 75 MG; Start 12/26/18 at 09:00 Insulin Aspart (Novolog Insulin Pen) NOVOLOG *MODERATE* ALGORITHM WITH MEALS BEDTIME SC Last administered on 12/27/18 11:57; Admin Dose 6 UNIT; Start 12/26/18 at 07:35 Miscellaneous Information 1 ea NOTE XX ; Start 12/26/18 at 05:00 Glucose (Glutose) 15 gm Q15M PRN PO DECREASED GLUCOSE; Start 12/26/18 at 05:00 Glucose (Glutose) 22.5 gm Q15M PRN PO DECREASED GLUCOSE; Start 12/26/18 at 05:00 Dextrose (D50w Syringe) 25 ml Q15M PRN IV DECREASED GLUCOSE; Start 12/26/18 at 05:00 Dextrose (D50w Syringe) 50 ml Q15M PRN IV DECREASED GLUCOSE; Start 12/26/18 at 05:00 Glucagon (Glucagen) 1 mg Q15M PRN IM DECREASED GLUCOSE; Start 12/26/18 at 05:00 Glucose (Glutose) 15 gm Q15M PRN BUCCAL DECREASED GLUCOSE; Start 12/26/18 at 05:00 Multivit/Ca Carb/ B Cmplx/FA/Prenat (Drea-Grisel) 1 tab DAILY PO Last administered on 12/27/18 08:36; Admin Dose 1 TAB; Start 12/26/18 at 09:00 Sevelamer Carbonate (Renvela) 800 mg WITH MEALS PO Last administered on 12/27/18at 12:13; Admin Dose 800 MG; Start 12/26/18 at 11:30 Carvedilol (Coreg) 6.25 mg BID PO Last administered on 12/27/18 08:37; Admin Dose 6.25 MG; Start 12/26/18 at 09:00 Losartan Potassium (Cozaar) 25 mg DAILY PO Last administered on 12/27/18 08:37; Admin Dose 25 MG; Start 12/27/18 at 09:00 Cefepime HCl 50 ml @ 100 mls/hr Q24H IVPB Last administered on 12/27/18 08:38; Admin Dose 100 MLS/HR; Start 12/26/18 at 09:30 Famotidine (Pepcid) 20 mg DAILY PO Last administered on 12/27/18at 08:36; Admin Dose 20 MG; Start 12/27/18 at 09:00 Acetaminophen/ Hydrocodone Bitart ([place] (5/325)) 1 tab Q4H PRN PO MODERATE PAIN LEVEL 4-6 Last administered on 12/26/18at 16:41; Admin Dose 1 TAB; Start 12/26/18 at 12:30 Insulin Glargine (Lantus) 16 units DAILY@0800 SC Last administered on 12/27/18at 08:38; Admin Dose 16 UNITS; Start 12/27/18 at 08:00 Insulin Aspart (Novolog Insulin Pen) 5 unit WITH MEALS SC Last administered on 12/27/18at 11:58; Admin Dose 5 UNIT; Start 12/26/18 at 17:35 Nystatin (Nystatin Powder) 1 applic BID TOP Last administered on 12/27/18at 15:33; Admin Dose 1 APPLIC; Start 12/27/18 at 12:30 Past Medical History reviewed Home Meds Reported Medications Magnesium Oxide* (Mag-Oxide*) 400 Mg Tablet, 400 MG PO DAILY, TAB 12/24/18 Losartan-Hydrochlorothiazide (Losartan-HCTZ) 100-12.5 Mg Tab, 1 TAB ORAL DAILY 12/24/18 Tamsulosin Hcl* (Flomax*) 0.4 Mg Cap.er.24h, 0.4 MG PO HS, CAP 12/24/18 Carvedilol* (Carvedilol*) 6.25 Mg Tablet, 1 TAB ORAL BID 12/24/18 Ergocalciferol (Vitamin D2) (VITAMIN D2) 50,000 Unit Capsule, 1 CAP ORAL WEEKLY 12/24/18 Ranitidine Hcl* (Ranitidine Hcl*) 300 Mg Tablet, 300 MG PO DAILY, #30 TAB 12/24/18 Trazodone Hcl* (Trazodone Hcl*) 100 Mg Tablet, 100 MG PO QHS, #30 TAB 12/24/18 Allopurinol* (Allopurinol*) 300 Mg Tablet, 300 MG PO DAILY, TAB 12/24/18 Docusate Sodium* (Docusate Sodium*) 100 Mg Capsule, 100 MG PO DAILY PRN for CONSTIPATION, #30 CAP 12/24/18 Levocetirizine Dihydrochloride (LEVOCETIRIZINE DIHYDROCHLORIDE) 5 Mg Tablet, 1 TAB ORAL DAILY 12/24/18 Insulin Glargine* (Lantus*) 100 Unit/Ml Soln, 25-30 UNIT SC QHS, #1 VIAL 12/24/18 Sulfamethoxazole/Trimethoprim (Sulfamethoxazole-Tmp Ds Tablet) 1 Each Tablet, 1 TAB ORAL DAILY 12/24/18 Calcitriol* (Rocaltrol*) 0.25 Mcg Capsule, 0.25 MCG PO DAILY, CAP 12/24/18 Medications Current Medications Ipratropium [place] (Atrovent Hfa) 4 puff Q4H RESP THERAPY PRN INH SHORTNESS OF BREATH; Start 12/24/18 at 05:00 Nitroglycerin (Nitroglycerin (Sl Tab) 0.4 Mg) 1 tab Q5M PRN SL CHEST PAIN; Start 12/24/18 at 05:00 Acetaminophen (Tylenol Liquid) 650 mg Q6H PRN PO PAIN LEVEL 1-3 OR FEVER Last administered on 12/26/18at 05:46; Admin Dose 650 MG; Start 12/24/18 at 05:00 Levalbuterol (Xopenex Neb) 1.25 mg Q4H RESP THERAPY PRN HHN SHORTNESS OF BREATH; Start 12/24/18 at 05:00 Calcitriol (Rocaltrol) 0.25 mcg DAILY PO Last administered on 12/27/18at 08:36; Admin Dose 0.25 MCG; Start 12/25/18 at 09:00 Docusate Sodium (Colace) 100 mg DAILY PRN PO CONSTIPATION Last administered on 12/26/18at 20:24; Admin Dose 100 MG; Start 12/24/18 at 09:30 Magnesium Oxide (Mag-Ox 400) 400 mg DAILY PO Last administered on 12/27/18at 08:36; Admin Dose 400 MG; Start 12/25/18 at 09:00 Tamsulosin HCl (Flomax) 0.4 mg HS PO Last administered on 12/26/18at 20:24; Admin Dose 0.4 MG; Start 12/24/18 at 21:00 Morphine Sulfate (morphine) 2 mg Q2H PRN IV SEVERE PAIN LEVEL 7-10 Last administered on 12/27/18 03:04; Admin Dose 2 MG; Start 12/24/18 at 16:30 Aspirin (Halfprin) 81 mg DAILY PO Last administered on 12/27/18 08:36; Admin Dose 81 MG; Start 12/24/18 at 19:00 Zolpidem Tartrate (Ambien) 5 mg HS MAY REPEAT X 1 PRN PO INSOMNIA Last administered on 12/25/18 03:58; Admin Dose 5 MG; Start 12/25/18 at 01:00 Clopidogrel Bisulfate (plaVIX) 75 mg DAILY PO Last administered on 12/27/18 08:36; Admin Dose 75 MG; Start 12/26/18 at 09:00 Insulin Aspart (Novolog Insulin Pen) NOVOLOG *MODERATE* ALGORITHM WITH MEALS BEDTIME SC Last administered on 12/27/18at 11:57; Admin Dose 6 UNIT; Start 12/26/18 at 07:35 Miscellaneous Information 1 ea NOTE XX ; Start 12/26/18 at 05:00 Glucose (Glutose) 15 gm Q15M PRN PO DECREASED GLUCOSE; Start 12/26/18 at 05:00 Glucose (Glutose) 22.5 gm Q15M PRN PO DECREASED GLUCOSE; Start 12/26/18 at 05:00 Dextrose (D50w Syringe) 25 ml Q15M PRN IV DECREASED GLUCOSE; Start 12/26/18 at 05:00 Dextrose (D50w Syringe) 50 ml Q15M PRN IV DECREASED GLUCOSE; Start 12/26/18 at 05:00 Glucagon (Glucagen) 1 mg Q15M PRN IM DECREASED GLUCOSE; Start 12/26/18 at 05:00 Glucose (Glutose) 15 gm Q15M PRN BUCCAL DECREASED GLUCOSE; Start 12/26/18 at 05:00 Multivit/Ca Carb/ B Cmplx/FA/Prenat (Drea-Grisel) 1 tab DAILY PO Last administered on 12/27/18 08:36; Admin Dose 1 TAB; Start 12/26/18 at 09:00 Sevelamer Carbonate (Renvela) 800 mg WITH MEALS PO Last administered on 12/27/18 12:13; Admin Dose 800 MG; Start 12/26/18 at 11:30 Carvedilol (Coreg) 6.25 mg BID PO Last administered on 12/27/18 08:37; Admin Dose 6.25 MG; Start 12/26/18 at 09:00 Losartan Potassium (Cozaar) 25 mg DAILY PO Last administered on 12/27/18 08:37; Admin Dose 25 MG; Start 12/27/18 at 09:00 Cefepime HCl 50 ml @ 100 mls/hr Q24H IVPB Last administered on 12/27/18 08:38; Admin Dose 100 MLS/HR; Start 12/26/18 at 09:30 Famotidine (Pepcid) 20 mg DAILY PO Last administered on 12/27/18 08:36; Admin Dose 20 MG; Start 12/27/18 at 09:00 Acetaminophen/ Hydrocodone Bitart ([place] (5/325)) 1 tab Q4H PRN PO MODERATE PAIN LEVEL 4-6 Last administered on 12/26/18 16:41; Admin Dose 1 TAB; Start 12/26/18 at 12:30 Insulin Glargine (Lantus) 16 units DAILY@0800 SC Last administered on 12/27/18 08:38; Admin Dose 16 UNITS; Start 12/27/18 at 08:00 Insulin Aspart (Novolog Insulin Pen) 5 unit WITH MEALS SC Last administered on 12/27/18 11:58; Admin Dose 5 UNIT; Start 12/26/18 at 17:35 Nystatin (Nystatin Powder) 1 applic BID TOP Last administered on 12/27/18 15:33; Admin Dose 1 APPLIC; Start 12/27/18 at 12:30 Allergies: Coded Allergies: levofloxacin (Verified Allergy, Unknown, 12/24/18) Past Surgical History reviewed Social History reviewed Alcohol Use: none Smoking Status: Never smoker Drug Use: none AYANNA FARRIS NP December 27, 2018 16:47
[2018-12-27] MEDS: TAMSULOSIN (SR) 0.4 MG CAP PO SCH (20:45)
[2018-12-27] MEDS: ZOLPIDEM 5 MG TAB PO PRN (21:01)
[2018-12-28] VITALS (25 sets, daily range): BP systolic 114–172; BP diastolic 54–104; PULSE 64–88; RESP 18–25
[2018-12-28] MEDS: INSULIN ASPART [NOVOLOG] 3 ML PEN SC SCH ×7 (07:55→21:00)
[2018-12-28] MEDS: SEVELAMER CARBONATE 800 MG TABLET PO SCH ×3 (08:39→17:39)
[2018-12-28] MEDS: FAMOTIDINE 20 MG TAB PO SCH (08:39)
[2018-12-28] MEDS: MULTIVIT/CA CARB/B CMPLX/FA TAB PO SCH (08:39)
[2018-12-28] MEDS: MAGNESIUM OXIDE 400 MG TAB PO SCH (08:39)
[2018-12-28] MEDS: ASPIRIN (EC) 81 MG TAB PO SCH (08:39)
[2018-12-28] MEDS: CALCITRIOL 0.25 MCG CAP PO SCH (08:39)
[2018-12-28] MEDS: CLOPIDOGREL 75 MG TAB PO SCH (08:39)
--- NOTE | 2018-12-28 08:39 | PN ---
DATE: 12/28/2018 SUBJECTIVE: The patient is stable. OBJECTIVE: HEENT: Head is normocephalic. NECK: Supple. HEART: Regular rate. LUNGS: Show diminished breath sounds at the base. ABDOMEN: Soft, nontender to palpation without rebound or guarding. EXTREMITIES: Negative for clubbing, cyanosis, no edema. DERMATOLOGIC: No rashes. MUSCULOSKELETAL: No joint effusion. NEUROLOGIC: No change in exam. MEDICATIONS: Reviewed. LABORATORY DATA: Reviewed. ASSESSMENT AND PLAN: 1. End-stage renal disease. The patient is scheduled for dialysis today. We will dialyze for 3 luis rs 3k bath, calcium 2.5. 2. Anemia. Continue to monitor hemoglobin and hematocrit levels. Continue Epogen with dialysis. 3. Mineral bone disorder, monitor calcium and phosphorus levels. Continue phosphate binders. 4. Hypertension. Continue current blood pressure regimen. 5. Non-ST elevation myocardial infarction, status post percutaneous coronary intervention to left an terior descending, continue medical management. Follow up with Cardiology. 6. Volume overload, improved. 7. Acute hypoxemic respiratory failure, improving. Continue to monitor. 8. Diabetes. Continue current insulin regimen. 9. History of gout. Dictated By: ALLISON GALLOWAY DO NR/NTS Conf#: [id number] DID#: [id number] CC: ARETHA ELIZALDE MD; ESTELA GIVENS MD; SLIME PACK MD;*EndCC*
[2018-12-28] MEDS: NYSTATIN 30 GM POWDER BTL TOP SCH ×2 (08:40→22:45)
[2018-12-28] MEDS: LOSARTAN 25 MG TAB PO SCH ×2 (08:48→12:10)
[2018-12-28] MEDS: INSULIN GLARGINE [LANTus] (100 UNITS/ML) SYG SC SCH (08:51)
[2018-12-28] MEDS: CEFEPIME 1GM/50 ML (PMX) 50 ML IVPB SCH (10:19)
[2018-12-28] MEDS: HYDROCODONE/APAP (5/325) TAB PO PRN (10:20)
--- NOTE | 2018-12-28 12:39 | CONS ---
Consult Date/Type/Reason Admit Date/Time December 24, 2018 at 04:04 Initial Consult Date 12/24/18 Type of Consult Pulmonary Requesting Provider: ESTELA GIVENS Date/Time of Note DATE: 12/28/18 TIME: 12:37 Subjective Patient remained stable this morning. Still has significant global weakness. Continues hemodialysis. Objective Vital Signs Date Temp Pulse Resp B/P (MAP) Pulse Ox O2 O2 Flow FiO2 Time Delivery Rate 12/28/18 81 12:11 12/28/18 2.0 11:43 12/28/18 98.4 19 172/66 96 11:05 (101) 12/28/18 Nasal 07:45 Cannula 12/24/18 50 15:03 Intake and Output 12/27/18 12/27/18 12/28/18 1515:00 23:00 07:00 IntakeIntake Total 500 ml 300 ml OutputOutput Total 75 ml 100 ml BalanceBalance 425 ml 200 ml Exam GENERAL: Frail elderly gentleman on nasal cannula O2 VITAL SIGNS: per chart NECK: Supple. No JVD or lymphadenopathy. CARDIAC EXAM: S1, S2. No added sounds or murmurs. CHEST: Diminished air entry bilaterally with few rales ABDOMEN: Soft, nontender. No guarding or rebound. EXTREMITIES: No cyanosis, clubbing or edema. NEUROLOGIC: Generalized weakness. No focal deficits. Results/Medications Result Diagram: 12/28/18 0636 12/28/18 0636 Results 24 hrs Laboratory Tests Test 12/27/18 17:16 12/27/18 20:44 12/28/18 02:53 12/28/18 06:36 Bedside Glucose 102 197 178 White Blood Count 11.6 H Red Blood Count 3.38 L Hemoglobin 9.8 L Hematocrit 30.7 L Mean Corpuscular 90.8 Volume Mean Corpuscular 29.0 Hemoglobin Mean Corpuscular 31.9 L Hemoglobin Concent Red Cell 14.0 Distribution Width Platelet Count 263 Mean Platelet Volume 10.6 H Immature 0.300 Granulocytes % Neutrophils % 79.2 H Lymphocytes % 10.4 L Monocytes % 8.6 Eosinophils % 1.2 Basophils % 0.3 Nucleated Red Blood 0.0 Cells % Immature 0.040 H Granulocytes # Neutrophils # 9.2 H Lymphocytes # 1.2 Monocytes # 1.0 H Eosinophils # 0.1 Basophils # 0.0 Nucleated Red Blood 0.0 Cells # Sodium Level 135 Potassium Level 4.3 Chloride Level 96 L Carbon Dioxide Level 25 Anion Gap 14 H Blood Urea Nitrogen 62 H Creatinine 7.17 H Est Glomerular Filtrat Rate mL/min Glucose Level 184 Calcium Level 9.2 Magnesium Level 2.5 Test 12/28/18 08:42 12/28/18 12:08 Bedside Glucose 162 153 Medications Current Medications Ipratropium [place] (Atrovent Hfa) 4 puff Q4H RESP THERAPY PRN INH SHORTNESS OF BREATH; Start 12/24/18 at 05:00 Nitroglycerin (Nitroglycerin (Sl Tab) 0.4 Mg) 1 tab Q5M PRN SL CHEST PAIN; Start 12/24/18 at 05:00 Acetaminophen (Tylenol Liquid) 650 mg Q6H PRN PO PAIN LEVEL 1-3 OR FEVER Last administered on 12/26/18 05:46; Admin Dose 650 MG; Start 12/24/18 at 05:00 Levalbuterol (Xopenex Neb) 1.25 mg Q4H RESP THERAPY PRN HHN SHORTNESS OF BREATH; Start 12/24/18 at 05:00 Calcitriol (Rocaltrol) 0.25 mcg DAILY PO Last administered on 12/28/18 08:39; Admin Dose 0.25 MCG; Start 12/25/18 at 09:00 Docusate Sodium (Colace) 100 mg DAILY PRN PO CONSTIPATION Last administered on 12/26/18 20:24; Admin Dose 100 MG; Start 12/24/18 at 09:30 Magnesium Oxide (Mag-Ox 400) 400 mg DAILY PO Last administered on 12/28/18 08:39; Admin Dose 400 MG; Start 12/25/18 at 09:00 Tamsulosin HCl (Flomax) 0.4 mg HS PO Last administered on 12/27/18 20:45; Admin Dose 0.4 MG; Start 12/24/18 at 21:00 Morphine Sulfate (morphine) 2 mg Q2H PRN IV SEVERE PAIN LEVEL 7-10 Last administered on 12/27/18 03:04; Admin Dose 2 MG; Start 12/24/18 at 16:30 Aspirin (Halfprin) 81 mg DAILY PO Last administered on 12/28/18 08:39; Admin Dose 81 MG; Start 12/24/18 at 19:00 Zolpidem Tartrate (Ambien) 5 mg HS MAY REPEAT X 1 PRN PO INSOMNIA Last administered on 12/27/18 21:01; Admin Dose 5 MG; Start 12/25/18 at 01:00 Clopidogrel Bisulfate (plaVIX) 75 mg DAILY PO Last administered on 12/28/18 08:39; Admin Dose 75 MG; Start 12/26/18 at 09:00 Insulin Aspart (Novolog Insulin Pen) NOVOLOG *MODERATE* ALGORITHM WITH MEALS BE DTIME SC Last administered on 12/28/18 12:11; Admin Dose 2 UNIT; Start 12/26/18 at 07:35 Miscellaneous Information 1 ea NOTE XX ; Start 12/26/18 at 05:00 Glucose (Glutose) 15 gm Q15M PRN PO DECREASED GLUCOSE; Start 12/26/18 at 05:00 Glucose (Glutose) 22.5 gm Q15M PRN PO DECREASED GLUCOSE; Start 12/26/18 at 05:00 Dextrose (D50w Syringe) 25 ml Q15M PRN IV DECREASED GLUCOSE; Start 12/26/18 at 05:00 Dextrose (D50w Syringe) 50 ml Q15M PRN IV DECREASED GLUCOSE; Start 12/26/18 at 05:00 Glucagon (Glucagen) 1 mg Q15M PRN IM DECREASED GLUCOSE; Start 12/26/18 at 05:00 Glucose (Glutose) 15 gm Q15M PRN BUCCAL DECREASED GLUCOSE; Start 12/26/18 at 05:00 Multivit/Ca Carb/ B Cmplx/FA/Prenat ([place]rea-Grisel) 1 tab DAILY PO Last administered on 12/28/18 08:39; Admin Dose 1 TAB; Start 12/26/18 at 09:00 Sevelamer Carbonate (Renvela) 800 mg WITH MEALS PO Last administered on 12/28/18 12:06; Admin Dose 800 MG; Start 12/26/18 at 11:30 Carvedilol (Coreg) 6.25 mg BID PO Last administered on 12/28/18 12:10; Admin Dose 6.25 MG; Start 12/26/18 at 09:00 Losartan Potassium (Cozaar) 25 mg DAILY PO Last administered on 12/28/18 12:10; Admin Dose 25 MG; Start 12/27/18 at 09:00 Cefepime HCl 50 ml @ 100 mls/hr Q24H IVPB Last administered on 12/28/18 10:19; Admin Dose 100 MLS/HR; Start 12/26/18 at 09:30 Famotidine (Pepcid) 20 mg DAILY PO Last administered on 12/28/18 08:39; Admin Dose 20 MG; Start 12/27/18 at 09:00 Acetaminophen/ Hydrocodone Bitart ([place] (5/325)) 1 tab Q4H PRN PO MODERATE PAIN LEVEL 4-6 Last administered on 12/28/18 10:20; Admin Dose 1 TAB; Start 12/26/18 at 12:30 Insulin Glargine (Lantus) 16 units DAILY@0800 SC Last administered on 12/28/18 08:51; Admin Dose 16 UNITS; Start 12/27/18 at 08:00 Insulin Aspart (Novolog Insulin Pen) 5 unit WITH MEALS SC Last administered on 12/28/18 12:11; Admin Dose 5 UNIT; Start 12/26/18 at 17:35 Nystatin (Nystatin Powder) 1 applic BID TOP Last administered on 12/28/18 08:40; Admin Dose 1 APPLIC; Start 12/27/18 at 12:30 Assessment/Plan Hospital Course (Demo Recall) Assessment 1. Acute hypoxemic respiratory failure likely secondary to volume overload possible pneumonia component 2. End-stage renal failure on hemodialysis 3. Significant global weakness Plan 1. Continue hemodialysis with volume removal 2 aspiration precautions 3. Physical therapy recommendations Long discussion with patient's daughter on the phone today. Discussed the fact the patient is currently not safe to be transferred home. She agrees. We discussed care home versus [facility]. Patient's family suggested that they would prefer [facility] if possible. Case was discussed with primary care team and case management. SLIME PACK MD, [facility] December 28, 2018 12:39
--- NOTE | 2018-12-28 13:42 | CONS ---
Assessment/Plan Assessment/Plan Hospital Course 78 yo M with multiple comorbidities who initially presented for evaluation of severe respiratory distress. On 12/25, there was c/o severe headaches, prompting a CTH that was concerning for intracranial hypertension... for which neurology is consulted. The clinical picture is inconsistent with pseudotumor cerebri. P: Ok to defer additional neuroimaging for now Pain and other medical management per primary Will follow clinically, to recommend neurologic studies, as necessary. Consultation Date/Type/Reason Admit Date/Time December 24, 2018 at 04:04 Type of Consult Neurology Reason for Consultation eval for idiopathic intracranial hypertension Requesting Provider: ESTELA GIVENS Date/Time of Note DATE: 12/28/18 TIME: 13:42 24 HR Interval Summary Free Text/Dictation Continues acute care. Exam Vital Signs Vitals Vital Signs Date Temp Pulse Resp B/P (MAP) Pulse Ox O2 O2 Flow FiO2 Time Delivery Rate 12/28/18 81 12:11 12/28/18 2.0 11:43 12/28/18 98.4 19 172/66 96 11:05 (101) 12/28/18 Nasal 07:45 Cannula 12/24/18 50 15:03 Intake and Output 12/27/18 12/27/18 12/28/18 1515:00 23:00 07:00 IntakeIntake Total 500 ml 300 ml OutputOutput Total 75 ml 100 ml BalanceBalance 425 ml 200 ml Exam PE: Gen Appearance: No Apparent Distress HEENT: Normocephalic Cardiovascular: Regular rate Lungs: Clear bilaterally Abdomen: Soft Extremities: Dry NE: The patient was alert and oriented. Language was normal. Fund of knowledge was normal. Pupils were equal and reactive to light. There was no afferent pupillary defect. Visual merritt were normal. Funduscopic examination was limited. Extra-ocular movements were full. Ptosis was absent. There was no nystagmus. Facial sensation was normal. Face was symmetric with normal strength. Hearing was intact. Palate movements were normal. Neck strength was normal. There was normal tongue bulk and speed of movement. Tone was normal. Muscle bulk was normal. I did not see fasciculations. The pt was generally weak. Vibration sensation was normal. Temperature and pinprick sensation was normal. Rapid alternating movements were normal. There was no dysmetria. There was no intention tremor. Gait was deferred due to bedrest. Arm and leg reflexes were 2+ and symmetric. Arguelles's sign was absent. Plantar responses were flexor. AYANNA FARRIS NP December 28, 2018 13:42
--- NOTE | 2018-12-28 17:31 | CONS ---
Consult Date/Type/Reason Admit Date/Time December 24, 2018 at 04:04 Initial Consult Date 12/24/18 Requesting Provider: ESTELA GIVENS Date/Time of Note DATE: 12/28/18 TIME: 17:30 Subjective Interventional cardiology follow-up progress note Subjective: Discussed with the staff and telemetry was reviewed patient remains in sinus rhythm. He denies any chest pain or pressure today. No groin pain no palpitations d/w daughter. pt wants to go home Objective: General: Obese gentleman in no acute distress HEENT: NC/AT. pupils are equal. round. NECK:. no stridor. CV: RRR. systolic murmur; no gallop or rubs. PULM: no wheezing . no rhonchi. GI: SOFT, NT, ND, no rebound or guarding Extremity: trace B/L LE edema. no clubbing. neuro: awake and alert, OX3. Psych: calm and pleasant rectal: deferred vascular: Right femoral no bleeding no hematoma EKG was personally reviewed shows sinus tachycardia. Anteroseptal infarct age undetermined. The vertical conduction delay Echocardiogram was personally reviewed which shows: Normal left ventricular cavity size. Sigmoid septum. Moderate global left ventricular systolic dysfunction. Ejection fraction is visually estimated at 35-40 %. Tissue Doppler/Mitral Doppler indices are consistent with impaired relaxation (Stage I diastolic dysfunction). Multiple segmental wall motion abnormalities. These segments of the LV are hypokinetic mid anterior segment, apical anterior segment, apical lateral segment, inferior apex segment, apex and apical septum. The left atrium is normal in size. Mild mitral leaflet calcification. Mild mitral annular calcification. Trace mitral regurgitation. No hemodynamically significant aortic stenosis by doppler. Aortic cusps appear mildly calcified. Normal appearance of the tricuspid valve. Estimated peak PA systolic pressure 35 mmHg. There is mild tricuspid regurgitation. Dilated IVC without respiratory collapse, however, patient on BI-PAP. Objective Vitals Vital Signs Date Temp Pulse Resp B/P (MAP) Pulse Ox O2 O2 Flow FiO2 Time Delivery Rate 12/28/18 64 16:46 12/28/18 98.2 18 129/58 97 15:31 (81) 12/28/18 2.0 11:43 12/28/18 Nasal 07:45 Cannula 12/24/18 50 15:03 Intake and Output 12/27/18 12/27/18 12/28/18 1515:00 23:00 07:00 IntakeIntake Total 500 ml 300 ml OutputOutput Total 75 ml 100 ml BalanceBalance 425 ml 200 ml Results/Medications Result Diagram: 12/28/1836 12/28/18 0636 Results 24 hrs Laboratory Tests Test 12/27/18 20:44 12/28/18 02:53 12/28/18 06:36 12/28/18 08:42 Bedside Glucose 197 178 162 White Blood Count 11.6 H Red Blood Count 3.38 L Hemoglobin 9.8 L Hematocrit 30.7 L Mean Corpuscular 90.8 Volume Mean Corpuscular 29.0 Hemoglobin Mean Corpuscular 31.9 L Hemoglobin Concent Red Cell 14.0 Distribution Width Platelet Count 263 Mean Platelet Volume 10.6 H Immature 0.300 Granulocytes % Neutrophils % 79.2 H Lymphocytes % 10.4 L Monocytes % 8.6 Eosinophils % 1.2 Basophils % 0.3 Nucleated Red Blood 0.0 Cells % Immature 0.040 H Granulocytes # Neutrophils # 9.2 H Lymphocytes # 1.2 Monocytes # 1.0 H Eosinophils # 0.1 Basophils # 0.0 Nucleated Red Blood 0.0 Cells # Sodium Level 135 Potassium Level 4.3 Chloride Level 96 L Carbon Dioxide Level 25 Anion Gap 14 H Blood Urea Nitrogen 62 H Creatinine 7.17 H Est Glomerular Filtrat Rate mL/min Glucose Level 184 Calcium Level 9.2 Magnesium Level 2.5 Test 12/28/18 12:08 Bedside Glucose 153 Home Meds Reported Medications Magnesium Oxide* (Mag-Oxide*) 400 Mg Tablet, 400 MG PO DAILY, TAB 12/24/18 Losartan-Hydrochlorothiazide (Losartan-HCTZ) 100-12.5 Mg Tab, 1 TAB ORAL DAILY 12/24/18 Tamsulosin Hcl* (Flomax*) 0.4 Mg Cap.er.24h, 0.4 MG PO HS, CAP 12/24/18 Carvedilol* (Carvedilol*) 6.25 Mg Tablet, 1 TAB ORAL BID 12/24/18 Ergocalciferol (Vitamin D2) (VITAMIN D2) 50,000 Unit Capsule, 1 CAP ORAL WEEKLY 12/24/18 Ranitidine Hcl* (Ranitidine Hcl*) 300 Mg Tablet, 300 MG PO DAILY, #30 TAB 12/24/18 Trazodone Hcl* (Trazodone Hcl*) 100 Mg Tablet, 100 MG PO QHS, #30 TAB 12/24/18 Allopurinol* (Allopurinol*) 300 Mg Tablet, 300 MG PO DAILY, TAB 12/24/18 Docusate Sodium* (Docusate Sodium*) 100 Mg Capsule, 100 MG PO DAILY PRN for CONSTIPATION, #30 CAP 12/24/18 Levocetirizine Dihydrochloride (LEVOCETIRIZINE DIHYDROCHLORIDE) 5 Mg Tablet, 1 TAB ORAL DAILY 12/24/18 Insulin Glargine* (Lantus*) 100 Unit/Ml Soln, 25-30 UNIT SC QHS, #1 VIAL 12/24/18 Sulfamethoxazole/Trimethoprim (Sulfamethoxazole-Tmp Ds Tablet) 1 Each Tablet, 1 TAB ORAL DAILY 12/24/18 Calcitriol* (Rocaltrol*) 0.25 Mcg Capsule, 0.25 MCG PO DAILY, CAP 12/24/18 Medications Current Medications Ipratropium [place] (Atrovent Hfa) 4 puff Q4H RESP THERAPY PRN INH SHORTNESS OF BREATH; Start 12/24/18 at 05:00 Nitroglycerin (Nitroglycerin (Sl Tab) 0.4 Mg) 1 tab Q5M PRN SL CHEST PAIN; Start 12/24/18 at 05:00 Acetaminophen (Tylenol Liquid) 650 mg Q6H PRN PO PAIN LEVEL 1-3 OR FEVER Last administered on 12/26/18at 05:46; Admin Dose 650 MG; Start 12/24/18 at 05:00 Levalbuterol (Xopenex Neb) 1.25 mg Q4H RESP THERAPY PRN HHN SHORTNESS OF BREATH; Start 12/24/18 at 05:00 Calcitriol (Rocaltrol) 0.25 mcg DAILY PO Last administered on 12/28/18at 08:39; Admin Dose 0.25 MCG; Start 12/25/18 at 09:00 Docusate Sodium (Colace) 100 mg DAILY PRN PO CONSTIPATION Last administered on 12/26/18at 20:24; Admin Dose 100 MG; Start 12/24/18 at 09:30 Magnesium Oxide (Mag-Ox 400) 400 mg DAILY PO Last administered on 12/28/18at 08:39; Admin Dose 400 MG; Start 12/25/18 at 09:00 Tamsulosin HCl (Flomax) 0.4 mg HS PO Last administered on 12/27/18 20:45; Admin Dose 0.4 MG; Start 12/24/18 at 21:00 Morphine Sulfate (morphine) 2 mg Q2H PRN IV SEVERE PAIN LEVEL 7-10 Last administered on 12/27/18 03:04; Admin Dose 2 MG; Start 12/24/18 at 16:30 Aspirin (Halfprin) 81 mg DAILY PO Last administered on 12/28/18 08:39; Admin Dose 81 MG; Start 12/24/18 at 19:00 Zolpidem Tartrate (Ambien) 5 mg HS MAY REPEAT X 1 PRN PO INSOMNIA Last administered on 12/27/18 21:01; Admin Dose 5 MG; Start 12/25/18 at 01:00 Clopidogrel Bisulfate (plaVIX) 75 mg DAILY PO Last administered on 12/28/18 08:39; Admin Dose 75 MG; Start 12/26/18 at 09:00 Insulin Aspart (Novolog Insulin Pen) NOVOLOG *MODERATE* ALGORITHM WITH MEALS BEDTIME SC Last administered on 12/28/18 12:11; Admin Dose 2 UNIT; Start 12/26/18 at 07:35 Miscellaneous Information 1 ea NOTE XX ; Start 12/26/18 at 05:00 Glucose (Glutose) 15 gm Q15M PRN PO DECREASED GLUCOSE; Start 12/26/18 at 05:00 Glucose (Glutose) 22.5 gm Q15M PRN PO DECREASED GLUCOSE; Start 12/26/18 at 05:00 Dextrose (D50w Syringe) 25 ml Q15M PRN IV DECREASED GLUCOSE; Start 12/26/18 at 05:00 Dextrose (D50w Syringe) 50 ml Q15M PRN IV DECREASED GLUCOSE; Start 12/26/18 at 05:00 Glucagon (Glucagen) 1 mg Q15M PRN IM DECREASED GLUCOSE; Start 12/26/18 at 05:00 Glucose (Glutose) 15 gm Q15M PRN BUCCAL DECREASED GLUCOSE; Start 12/26/18 at 05:00 Multivit/Ca Carb/ B Cmplx/FA/Prenat ([place]rea-Grisel) 1 tab DAILY PO Last administered on 12/28/18 08:39; Admin Dose 1 TAB; Start 12/26/18 at 09:00 Sevelamer Carbonate (Renvela) 800 mg WITH MEALS PO Last administered on 12/28/18 12:06; Admin Dose 800 MG; Start 12/26/18 at 11:30 Carvedilol (Coreg) 6.25 mg BID PO Last administered on 12/28/18 12:10; Admin Dose 6.25 MG; Start 12/26/18 at 09:00 Losartan Potassium (Cozaar) 25 mg DAILY PO Last administered on 12/28/18 12:10; Admin Dose 25 MG; Start 12/27/18 at 09:00 Cefepime HCl 50 ml @ 100 mls/hr Q24H IVPB Last administered on 12/28/18 10:19; Admin Dose 100 MLS/HR; Start 12/26/18 at 09:30 Famotidine (Pepcid) 20 mg DAILY PO Last administered on 12/28/18 08:39; Admin Dose 20 MG; Start 12/27/18 at 09:00 Acetaminophen/ Hydrocodone Bitart ([place] (5/325)) 1 tab Q4H PRN PO MODERATE PAIN LEVEL 4-6 Last administered on 12/28/18 10:20; Admin Dose 1 TAB; Start 12/26/18 at 12:30 Insulin Glargine (Lantus) 16 units DAILY@0800 SC Last administered on 12/28/18 08:51; Admin Dose 16 UNITS; Start 12/27/18 at 08:00 Insulin Aspart (Novolog Insulin Pen) 5 unit WITH MEALS SC Last administered on 12/28/18 12:11; Admin Dose 5 UNIT; Start 12/26/18 at 17:35 Nystatin (Nystatin Powder) 1 applic BID TOP Last administered on 12/28/18 08:40; Admin Dose 1 APPLIC; Start 12/27/18 at 12:30 Assessment/Plan Hospital Course (Demo Recall) Non-ST elevation myocardial infarction: SP PCI LAD 12/25/18 Hypertension Congestive heart failure acute on chronic secondary systolic heart failure Respiratory failure Renal failure on dialysis Diabetes Dyslipidemia History of gout Headache: CT of the head done December 25 did not show any evidence of acute CVA, ? Related to sinusitis versus others. Will defer to internal medicine team Recommendations: Aspirin plavix will be continued. cont Coreg Insulin as per internal medicine. Hemodialysis as per renal Continue with statin cont ARB Agent has been scheduled to follow-up with me as an outpatient. DC planning as per internal medicine Thank you for his referral. We will continue to follow along with you as needed NORMA MARTINEZ MD [facility] NORMA MARTINEZ MD December 28, 2018 17:31
[2018-12-28] MEDS: TAMSULOSIN (SR) 0.4 MG CAP PO SCH (20:46)
[2018-12-28] MEDS: ZOLPIDEM 5 MG TAB PO PRN (22:46)
[2018-12-29] VITALS (11 sets, daily range): BP systolic 100–142; BP diastolic 45–74; PULSE 63–89; RESP 18–22
--- NOTE | 2018-12-29 08:16 | PN ---
DATE: 12/29/2018 SUBJECTIVE: The patient is stable. No events overnight. OBJECTIVE: VITAL SIGNS: Blood pressure is 132/74, pulse 89, respirations 19, temperature 98.1. HEENT: Head is normocephalic. NECK: Supple. HEART: Regular rate. LUNGS: Show diminished breath sounds at the base. ABDOMEN: Soft, nontender to palpation without rebound or guarding. EXTREMITIES: Negative for clubbing, cyanosis, no edema. DERMATOLOGIC: No rashes. MUSCULOSKELETAL: No joint effusion. NEUROLOGIC: No change in exam. MEDICATIONS: Have been reviewed. LABORATORY DATA: Has been reviewed. ASSESSMENT AND PLAN: 1. End-stage renal disease. The patient had hemodialysis yesterday. Plan for dialysis again tomorr ow. 2. Anemia. Continue to monitor hemoglobin and hematocrit levels. Continue Epogen. 3. Mineral bone disorder. Monitor calcium and phosphorus levels. 4. Hypertension. Continue current blood pressure regimen. 5. Acute hypoxemic respiratory failure secondary to possible pneumonia, volume overload. Continue m edical management. Follow up with pulmonary. 6. Volume overload secondary to end-stage renal disease, congestive heart failure. Continue ultrafi ltration dialysis. 7. Hypertension. Continue current blood pressure regimen. 8. Non-ST elevation myocardial infarction, status post percutaneous coronary intervention to left an terior descending. Continue medical management. Follow up with cardiology. 9. Diabetes. Continue current insulin regimen. 10. History of gout. Dictated By: ALLISON GALLOWAY DO NR/NTS Conf#: [id number] DID#: [id number] CC: ARETHA ELIZALDE MD;*EndCC*
--- NOTE | 2018-12-29 09:08 | EN ---
Date/Time of Note Date/Time of Note DATE: 12/28/18 Event Note Medicine Medicine Event Note Subjective: no new complaints, R arm pain is better Objective: Constitutional: alert, oriented Head: atraumatic, normocephalic Neck: non-tender, supple Respiratory: clear to auscultation, diminished Cardiovascular: regular rate and rhythm Gastrointestinal: S/ NT / ND / +BS Assessment and plan: 1. Acute respiratory failure status post noninvasive positive pressure ventilation: Improved -Deescalated to oxygen via nasal cannula 2 L a minute -2/2 #2 and 3 2. Fluid overload/CHF exacerbation: Improved 3. NSTEMI -Status post cardiac catheterization with PCI to left anterior descending 4. Left lower lobe pneumonia and tracheobronchitis -started on abx per pulm 5. Diabetes mellitus with hyperglycemia without DKA -improved control 6. Hypertension 7. Chronic BPH 8. History of gout 9. End-stage renal disease on hemodialysis 10. UTI 11. cephalic VV thrombosis R UE 12. Concern on CT of the brain for pseudotumor cerebri versus idiopathic intracranial hypertension -Ct was done to workup headache, now resolved Plan:- -PT reccommends SNF/ ARU. patient accepted in ARU for Monday12/30/18 - seems to prefer to take patient home versus SNF, but she may be open to ARU -we will have to f/u with case mgt and family . DVT GI prophylaxis: Heparin, Protonix ESTELA GIVENS December 29, 2018 09:08
[2018-12-29] MEDS: CEFEPIME 1GM/50 ML (PMX) 50 ML IVPB SCH (09:32)
[2018-12-29] MEDS: LOSARTAN 25 MG TAB PO SCH (09:33)
[2018-12-29] MEDS: MAGNESIUM OXIDE 400 MG TAB PO SCH (09:33)
[2018-12-29] MEDS: SEVELAMER CARBONATE 800 MG TABLET PO SCH ×3 (09:33→19:00)
[2018-12-29] MEDS: MULTIVIT/CA CARB/B CMPLX/FA TAB PO SCH (09:33)
[2018-12-29] MEDS: CALCITRIOL 0.25 MCG CAP PO SCH (09:33)
[2018-12-29] MEDS: CLOPIDOGREL 75 MG TAB PO SCH (09:33)
[2018-12-29] MEDS: ASPIRIN (EC) 81 MG TAB PO SCH (09:33)
[2018-12-29] MEDS: FAMOTIDINE 20 MG TAB PO SCH (09:33)
[2018-12-29] MEDS: INSULIN ASPART [NOVOLOG] 3 ML PEN SC SCH ×7 (09:47→21:00)
--- NOTE | 2018-12-29 10:06 | CONS ---
Assessment/Plan Assessment/Plan Assessment/Plan (Daily) Assessment and recommendations; 1. Patient admitted with shortness of breath of left lower lobe pneumonia with significant interval clinical and radiological improvement. 2. End-stage renal disease, on hemodialysis. 3. Interval resolution of hypoxemia. 4. History of diabetes and hypertension. Continue current supportive care. Consider discharge. Consultation Date/Type/Reason Admit Date/Time December 24, 2018 at 04:04 Initial Consult Date 12/24/18 Type of Consult Pulmonary/critical care Requesting Provider: ESTELA GIVENS Date/Time of Note DATE: 12/29/18 TIME: 10:04 24 HR Interval Summary Free Text/Dictation Patient's condition is stable. Doing very well on room air. General exam; elderly male, awake alert, having lunch on bed. Currently no distress. Exam/Review of Systems Exam Vitals Vital Signs Date Temp Pulse Resp B/P (MAP) Pulse Ox O2 O2 Flow FiO2 Time Delivery Rate 12/29/18 79 08:00 12/29/18 98.1 132/74 97 07:29 (93) 12/29/18 2.0 01:45 12/28/18 Nasal 20:00 Cannula Intake and Output 12/28/18 12/28/18 12/29/18 1515:00 23:00 07:00 IntakeIntake Total 620 ml OutputOutput Total 2700 ml 200 ml 350 ml BalanceBalance -2700 ml 420 ml -350 ml Exam H EENT exam; supple neck, no lymphadenopathy. Positive JVD. No neck masses. Chest exam; diminished but clear breath sounds. S1-S2 audible, no murmurs. Regular rhythm. Abdomen exam; soft, no organomegaly. Bowel sounds audible. Mildly protuberant. Extremity exam; no peripheral edema clubbing. ICU CLERK exam; no focal deficit. Results Result Diagram: 12/28/18 0636 12/28/18 0636 Results 24hrs Laboratory Tests Test 12/28/18 12:08 12/28/18 17:36 12/28/18 20:55 12/28/18 23:30 Bedside Glucose 153 198 160 Urine Eosinophils % 0.0 Test 12/29/18 08:50 Bedside Glucose 183 Medications Medication Current Medications Ipratropium [place] (Atrovent Hfa) 4 puff Q4H RESP THERAPY PRN INH SHORTNESS OF BREATH; Start 12/24/18 at 05:00 Nitroglycerin (Nitroglycerin (Sl Tab) 0.4 Mg) 1 tab Q5M PRN SL CHEST PAIN; Start 12/24/18 at 05:00 Acetaminophen (Tylenol Liquid) 650 mg Q6H PRN PO PAIN LEVEL 1-3 OR FEVER Last administered on 12/26/18 05:46; Admin Dose 650 MG; Start 12/24/18 at 05:00 Levalbuterol (Xopenex Neb) 1.25 mg Q4H RESP THERAPY PRN HHN SHORTNESS OF BREATH; Start 12/24/18 at 05:00 Calcitriol (Rocaltrol) 0.25 mcg DAILY PO Last administered on 12/29/18 09:33; Admin Dose 0.25 MCG; Start 12/25/18 at 09:00 Docusate Sodium (Colace) 100 mg DAILY PRN PO CONSTIPATION Last administered on 12/26/18 20:24; Admin Dose 100 MG; Start 12/24/18 at 09:30 Magnesium Oxide (Mag-Ox 400) 400 mg DAILY PO Last administered on 12/29/18 09:33; Admin Dose 400 MG; Start 12/25/18 at 09:00 Tamsulosin HCl (Flomax) 0.4 mg HS PO Last administered on 12/28/18 20:46; Admin Dose 0.4 MG; Start 12/24/18 at 21:00 Morphine Sulfate (morphine) 2 mg Q2H PRN IV SEVERE PAIN LEVEL 7-10 Last administered on 12/27/18 03:04; Admin Dose 2 MG; Start 12/24/18 at 16:30 Aspirin (Halfprin) 81 mg DAILY PO Last administered on 12/29/18 09:33; Admin Dose 81 MG; Start 12/24/18 at 19:00 Zolpidem Tartrate (Ambien) 5 mg HS MAY REPEAT X 1 PRN PO INSOMNIA Last administered on 12/28/18 22:46; Admin Dose 5 MG; Start 12/25/18 at 01:00 Clopidogrel Bisulfate (plaVIX) 75 mg DAILY PO Last administered on 12/29/18 09:33; Admin Dose 75 MG; Start 12/26/18 at 09:00 Insulin Aspart (Novolog Insulin Pen) NOVOLOG *MODERATE* ALGORITHM WITH MEALS BEDTIME SC Last administered on 12/29/18 09:47; Admin Dose 4 UNIT; Start 12/26/18 at 07:35 Miscellaneous Information 1 ea NOTE XX ; Start 12/26/18 at 05:00 Glucose (Glutose) 15 gm Q15M PRN PO DECREASED GLUCOSE; Start 12/26/18 at 05:00 Glucose (Glutose) 22.5 gm Q15M PRN PO DECREASED GLUCOSE; Start 12/26/18 at 05:00 Dextrose (D50w Syringe) 25 ml Q15M PRN IV DECREASED GLUCOSE; Start 12/26/18 at 05:00 Dextrose (D50w Syringe) 50 ml Q15M PRN IV DECREASED GLUCOSE; Start 12/26/18 at 05:00 Glucagon (Glucagen) 1 mg Q15M PRN IM DECREASED GLUCOSE; Start 12/26/18 at 05:00 Glucose (Glutose) 15 gm Q15M PRN BUCCAL DECREASED GLUCOSE; Start 12/26/18 at 05:00 Multivit/Ca Carb/ B Cmplx/FA/Prenat ([place]-Grisel) 1 tab DAILY PO Last administered on 12/29/18 09:33; Admin Dose 1 TAB; Start 12/26/18 at 09:00 Sevelamer Carbonate (Renvela) 800 mg WITH MEALS PO Last administered on 12/29/18 09:33; Admin Dose 800 MG; Start 12/26/18 at 11:30 Carvedilol (Coreg) 6.25 mg BID PO Last administered on 12/29/18 09:32; Admin Dose 6.25 MG; Start 12/26/18 at 09:00 Losartan Potassium (Cozaar) 25 mg DAILY PO Last administered on 12/29/18 09:33; Admin Dose 25 MG; Start 12/27/18 at 09:00 Cefepime HCl 50 ml @ 100 mls/hr Q24H IVPB Last administered on 12/29/18 09:32; Admin Dose 100 MLS/HR; Start 12/26/18 at 09:30 Famotidine (Pepcid) 20 mg DAILY PO Last administered on 12/29/18 09:33; Admin Dose 20 MG; Start 12/27/18 at 09:00 Acetaminophen/ Hydrocodone Bitart ([place] (5/325)) 1 tab Q4H PRN PO MODERATE PAIN LEVEL 4-6 Last administered on 12/28/18 10:20; Admin Dose 1 TAB; Start 12/26/18 at 12:30 Insulin Glargine (Lantus) 16 units DAILY@0800 SC Last administered on 12/28/18 08:51; Admin Dose 16 UNITS; Start 12/27/18 at 08:00 Insulin Aspart (Novolog Insulin Pen) 5 unit WITH MEALS SC Last administered on 12/29/18 09:47; Admin Dose 5 UNIT; Start 12/26/18 at 17:35 Nystatin (Nystatin Powder) 1 applic BID TOP Last administered on 12/28/18 22:45; Admin Dose 1 APPLIC; Start 12/27/18 at 12:30 BARBRA RODNEY December 29, 2018 10:06
[2018-12-29] MEDS: NYSTATIN 30 GM POWDER BTL TOP SCH ×2 (10:22→21:15)
[2018-12-29] MEDS: INSULIN GLARGINE [LANTus] (100 UNITS/ML) SYG SC SCH (10:29)
--- NOTE | 2018-12-29 11:17 | CONS ---
Assessment/Plan Assessment/Plan Hospital Course 78 yo M with multiple comorbidities who initially presented for evaluation of severe respiratory distress. On 12/25, there was c/o severe headaches, prompting a CTH that was concerning for intracranial hypertension... for which neurology is consulted. The clinical picture is inconsistent with pseudotumor cerebri. P: Ok to defer additional neuroimaging for now Pain and other medical management per primary Will follow clinically, to recommend neurologic studies, as necessary. Consultation Date/Type/Reason Admit Date/Time December 24, 2018 at 04:04 Type of Consult Neurology Reason for Consultation eval for idiopathic intracranial hypertension Requesting Provider: ESTELA GIVENS Date/Time of Note DATE: 12/29/18 TIME: 11:17 24 HR Interval Summary Free Text/Dictation Continues acute care. No complaints of headache today. Exam Vital Signs Vitals Vital Signs Date Temp Pulse Resp B/P (MAP) Pulse Ox O2 O2 Flow FiO2 Time Delivery Rate 12/29/18 79 08:00 12/29/18 98.1 19 132/74 97 07:29 (93) 12/29/18 2.0 01:45 12/28/18 Nasal 20:00 Cannula Intake and Output 12/28/18 12/28/18 12/29/18 1515:00 23:00 07:00 IntakeIntake Total 620 ml OutputOutput Total 2700 ml 200 ml 350 ml BalanceBalance -2700 ml 420 ml -350 ml Exam PE: Gen Appearance: No Apparent Distress HEENT: Normocephalic Cardiovascular: Regular rate Lungs: Clear bilaterally Abdomen: Soft Extremities: Dry NE: The patient was alert and oriented. Language was normal. Fund of knowledge was normal. Pupils were equal and reactive to light. There was no afferent pupillary defect. Visual merritt were normal. Funduscopic examination was limited. Extra-ocular movements were full. Ptosis was absent. There was no nystagmus. Facial sensation was normal. Face was symmetric with normal strength. Hearing was intact. Palate movements were normal. Neck strength was normal. There was normal tongue bulk and speed of movement. Tone was normal. Muscle bulk was normal. I did not see fasciculations. The pt was generally weak, mildly. Vibration sensation was normal. Temperature and pinprick sensation was normal. Rapid alternating movements were normal. There was no dysmetria. There was no intention tremor. Gait was deferred due to bedrest. Arm and leg reflexes were 2+ and symmetric. Arguelles's sign was absent. Plantar responses were flexor. AYANNA FARRIS NP December 29, 2018 11:17
--- NOTE | 2018-12-29 13:26 | PN ---
Date/Time of Note Date/Time of Note DATE: 12/29/18 TIME: 13:24 Assessment/Plan VTE Prophylaxis Risk score (from Nsg)>0 risk: 8 SCD applied (from Nsg): Yes Pharmacological prophylaxis: other Lines/Catheters IV Catheter Type (from Nrsg): Peripheral IV Urinary Cath still in place: Yes Reason Cath still needed: urinary retention Assessment/Plan Hospital Course Subjective: no new complaints, patient had dialysis yesterday. Seen by renal, neurology, pulmonary teams today. Objective: Constitutional: alert, oriented Head: atraumatic, normocephalic Neck: non-tender, supple Respiratory: clear to auscultation, diminished Cardiovascular: regular rate and rhythm Gastrointestinal: S/ NT / ND / +BS [facility] 12/25/18: Date/Time of Note Date/Time of Note DATE: 12/25/18 TIME: 16:39 Operative Report Procedure Date: December 25, 2018 Preoperative Diagnosis NSTEMI Postoperative Diagnosis NSTEMI Operation/Procedure Performed PCI LAD Assessment and plan: 78-year-old male who presented with: 1. Acute respiratory failure status post noninvasive positive pressure ventilation: Initially found with left lower lobe pneumonia, overall improved- Deescalated to oxygen via nasal cannula 2 L a minute - 2/2 #2 and 3 -Monitor, duo nebs as needed -Continue current antibiotics for now 2. Fluid overload/CHF exacerbation: Improved -Monitor, continue dialysis per renal conditions and current cardiac medications 3. NSTEMI -Status post cardiac catheterization with PCI to left anterior descending on December 25, 2018 -Monitor, continue aspirin, Plavix, Coreg, Cozaar -Follow-up further cardiology recommendations 4. Left lower lobe pneumonia and tracheobronchitis -see #1, improving on anti biotics -Presently on Abx per pulm, continue for now and monitor 5. Diabetes mellitus with hyperglycemia without DKA-occurred on admission, sugars improved in the high normal range now -We will slightly increase the dose of aspart with meals, and Lantus today, continue sliding scale insulin, monitor -Follow-up A1c 6. Hypertension -stable, continue current medications 7. Chronic BPH -monitor 8. History of gout -monitor 9. End-stage renal disease on hemodialysis -again last dialysis was yesterday -Monitor, continue dialysis per renal recommendations 10. UTI -appears mild, improving on antibiotics -Follow-up final urine culture results, continue antibiotics 11. cephalic VV thrombosis R UE -elevate, consider warm compresses carefully 12. Concern on CT of the brain for pseudotumor cerebri versus idiopathic intracranial hypertension-Ct was done to workup headache, now resolved . Appreciate neurology consult -Monitor, follow-up further recommendations Plan:- -PT recommends SNF/ ARU. patient accepted in ARU for Monday12/30/18 -However, apparently seems to prefer to take patient home versus ARU/SNF( but she may be open to ARU?) -we will have to f/u with case mgt and family about final decision on this. DVT GI prophylaxis: Heparin, Protonix Result Diagram: 12/29/1848 12/29/1848 Results 24hrs Laboratory Tests Test 12/28/18 17:36 12/28/18 20:55 12/28/18 23:30 12/29/18 08:50 Bedside Glucose 198 160 183 Urine Eosinophils % 0.0 Test 12/29/18 09:48 12/29/18 13:07 White Blood Count 9.6 Red Blood Count 3.66 L Hemoglobin 10.7 L Hematocrit 33.9 L Mean Corpuscular 92.6 Volume Mean Corpuscular 29.2 Hemoglobin Mean Corpuscular 31.6 L Hemoglobin Concent Red Cell 13.8 Distribution Width Platelet Count 276 Mean Platelet Volume 10.8 H Immature 0.300 Granulocytes % Neutrophils % 77.1 H Lymphocytes % 9.6 L Monocytes % 9.6 Eosinophils % 2.9 Basophils % 0.5 Nucleated Red Blood 0.0 Cells % Immature 0.030 Granulocytes # Neutrophils # 7.4 Lymphocytes # 0.9 Monocytes # 0.9 Eosinophils # 0.3 Basophils # 0.1 Nucleated Red Blood 0.0 Cells # Sodium Level 140 Potassium Level 4.4 Chloride Level 102 Carbon Dioxide Level 23 Anion Gap 15 H Blood Urea Nitrogen 46 #H Creatinine 5.92 H Est Glomerular Filtrat Rate mL/min Glucose Level 193 Calcium Level 9.4 Bedside Glucose 200 Exam/Review of Systems Exam Vitals Vital Signs Date Temp Pulse Resp B/P (MAP) Pulse Ox O2 O2 Flow FiO2 Time Delivery Rate 12/29/18 98.2 77 19 114/58 98 11:19 (76) 12/29/18 2.0 01:45 12/28/18 Nasal 20:00 Cannula Intake and Output 12/28/18 12/28/18 12/29/18 1515:00 23:00 07:00 IntakeIntake Total 620 ml OutputOutput Total 2700 ml 200 ml 350 ml BalanceBalance -2700 ml 420 ml -350 ml Results Results 24hrs Laboratory Tests Test 12/28/18 17:36 12/28/18 20:55 12/28/18 23:30 12/29/18 08:50 Bedside Glucose 198 160 183 Urine Eosinophils % 0.0 Test 12/29/18 09:48 12/29/18 13:07 White Blood Count 9.6 Red Blood Count 3.66 L Hemoglobin 10.7 L Hematocrit 33.9 L Mean Corpuscular 92.6 Volume Mean Corpuscular 29.2 Hemoglobin Mean Corpuscular 31.6 L Hemoglobin Concent Red Cell 13.8 Distribution Width Platelet Count 276 Mean Platelet Volume 10.8 H Immature 0.300 Granulocytes % Neutrophils % 77.1 H Lymphocytes % 9.6 L Monocytes % 9.6 Eosinophils % 2.9 Basophils % 0.5 Nucleated Red Blood 0.0 Cells % Immature 0.030 Granulocytes # Neutrophils # 7.4 Lymphocytes # 0.9 Monocytes # 0.9 Eosinophils # 0.3 Basophils # 0.1 Nucleated Red Blood 0.0 Cells # Sodium Level 140 Potassium Level 4.4 Chloride Level 102 Carbon Dioxide Level 23 Anion Gap 15 H Blood Urea Nitrogen 46 #H Creatinine 5.92 H Est Glomerular Filtrat Rate mL/min Glucose Level 193 Calcium Level 9.4 Bedside Glucose 200 Medications Medication Current Medications Ipratropium [place] (Atrovent Hfa) 4 puff Q4H RESP THERAPY PRN INH SHORTNESS OF BREATH; Start 12/24/18 at 05:00 Nitroglycerin (Nitroglycerin (Sl Tab) 0.4 Mg) 1 tab Q5M PRN SL CHEST PAIN; Start 12/24/18 at 05:00 Acetaminophen (Tylenol Liquid) 650 mg Q6H PRN PO PAIN LEVEL 1-3 OR FEVER Last administered on 12/26/18at 05:46; Admin Dose 650 MG; Start 12/24/18 at 05:00 Levalbuterol (Xopenex Neb) 1.25 mg Q4H RESP THERAPY PRN HHN SHORTNESS OF BREATH; Start 12/24/18 at 05:00 Calcitriol (Rocaltrol) 0.25 mcg DAILY PO Last administered on 12/29/18 09:33; Admin Dose 0.25 MCG; Start 12/25/18 at 09:00 Docusate Sodium (Colace) 100 mg DAILY PRN PO CONSTIPATION Last administered on 12/26/18 20:24; Admin Dose 100 MG; Start 12/24/18 at 09:30 Magnesium Oxide (Mag-Ox 400) 400 mg DAILY PO Last administered on 12/29/18 09:33; Admin Dose 400 MG; Start 12/25/18 at 09:00 Tamsulosin HCl (Flomax) 0.4 mg HS PO Last administered on 12/28/18 20:46; Admin Dose 0.4 MG; Start 12/24/18 at 21:00 Morphine Sulfate (morphine) 2 mg Q2H PRN IV SEVERE PAIN LEVEL 7-10 Last administered on 12/27/18 03:04; Admin Dose 2 MG; Start 12/24/18 at 16:30 Aspirin (Halfprin) 81 mg DAILY PO Last administered on 12/29/18 09:33; Admin Dose 81 MG; Start 12/24/18 at 19:00 Zolpidem Tartrate (Ambien) 5 mg HS MAY REPEAT X 1 PRN PO INSOMNIA Last administered on 12/28/18 22:46; Admin Dose 5 MG; Start 12/25/18 at 01:00 Clopidogrel Bisulfate (plaVIX) 75 mg DAILY PO Last administered on 12/29/18 09:33; Admin Dose 75 MG; Start 12/26/18 at 09:00 Insulin Aspart (Novolog Insulin Pen) NOVOLOG *MODERATE* ALGORITHM WITH MEALS BEDTIME SC Last administered on 12/29/18 13:21; Admin Dose 4 UNIT; Start 12/26/18 at 07:35 Miscellaneous Information 1 ea NOTE XX ; Start 12/26/18 at 05:00 Glucose (Glutose) 15 gm Q15M PRN PO DECREASED GLUCOSE; Start 12/26/18 at 05:00 Glucose (Glutose) 22.5 gm Q15M PRN PO DECREASED GLUCOSE; Start 12/26/18 at 05: 00 Dextrose (D50w Syringe) 25 ml Q15M PRN IV DECREASED GLUCOSE; Start 12/26/18 at 05:00 Dextrose (D50w Syringe) 50 ml Q15M PRN IV DECREASED GLUCOSE; Start 12/26/18 at 05:00 Glucagon (Glucagen) 1 mg Q15M PRN IM DECREASED GLUCOSE; Start 12/26/18 at 05:00 Glucose (Glutose) 15 gm Q15M PRN BUCCAL DECREASED GLUCOSE; Start 12/26/18 at 05:00 Multivit/Ca Carb/ B Cmplx/FA/Prenat ([place]rea-Grisel) 1 tab DAILY PO Last administered on 12/29/18 09:33; Admin Dose 1 TAB; Start 12/26/18 at 09:00 Sevelamer Carbonate (Renvela) 800 mg WITH MEALS PO Last administered on 12/29/18 13:05; Admin Dose 800 MG; Start 12/26/18 at 11:30 Carvedilol (Coreg) 6.25 mg BID PO Last administered on 12/29/18 09:32; Admin Dose 6.25 MG; Start 12/26/18 at 09:00 Losartan Potassium (Cozaar) 25 mg DAILY PO Last administered on 12/29/18 09:33; Admin Dose 25 MG; Start 12/27/18 at 09:00 Cefepime HCl 50 ml @ 100 mls/hr Q24H IVPB Last administered on 12/29/18 09:32; Admin Dose 100 MLS/HR; Start 12/26/18 at 09:30 Famotidine (Pepcid) 20 mg DAILY PO Last administered on 12/29/18 09:33; Admin Dose 20 MG; Start 12/27/18 at 09:00 Acetaminophen/ Hydrocodone Bitart ([place] (5/325)) 1 tab Q4H PRN PO MODERATE PAIN LEVEL 4-6 Last administered on 12/28/18 10:20; Admin Dose 1 TAB; Start 12/26/18 at 12:30 Insulin Glargine (Lantus) 16 units DAILY@0800 SC Last administered on 12/29/18 10:29; Admin Dose 16 UNITS; Start 12/27/18 at 08:00 Insulin Aspart (Novolog Insulin Pen) 5 unit WITH MEALS SC Last administered on 12/29/18 13:22; Admin Dose 5 UNIT; Start 12/26/18 at 17:35 Nystatin (Nystatin Powder) 1 applic BID TOP Last administered on 12/29/18 10:22; Admin Dose 1 APPLIC; Start 12/27/18 at 12:30 SONI PRITCHETT December 29, 2018 13:26
--- NOTE | 2018-12-29 15:28 | PN ---
Date/Time of Note Date/Time of Note DATE: 12/29/18 TIME: 15:25 Assessment/Plan VTE Prophylaxis Risk score (from Ns)>0 risk: 8 SCD applied (from Ns): Yes SCD contraindicated: low risk/ambulating Pharmacological prophylaxis: LMWH Lines/Catheters IV Catheter Type (from [facility]): Peripheral IV Urinary Cath still in place: Yes Reason Cath still needed: urinary retention Assessment/Plan Hospital Course Assessment and plan 1. Acute respiratory failure stable observe 2. CAP? Stable improved finish antibiotics 3. Acute cystitis stable finish antibiotics 4. Cephalic vein thrombosis 5. Acute renal failure/now dialysis status stable observe 6. Deconditioning, stable, admit to ARU 7. ACS; Sp PCI stent to LAD continue anticoagulants 8. 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 Type 2 diabetes 10. Chronic essential hypertension Subjective: No distress. Mild cough no fever. Ambulated? Objective: Vital signs stable appears sinus Physical exam No pallor JVD Regular no murmur gallop Diminished but no tachypnea Bowel sounds present nontender nondistended no RG No edema Result Diagram: 12/29/18 0948 12/29/18 0948 Results 24hrs Laboratory Tests Test 12/28/18 17:36 12/28/18 20:55 12/28/18 23:30 12/29/18 08:50 Bedside Glucose 198 160 183 Urine Eosinophils % 0.0 Test 12/29/18 09:43 12/29/18 09:48 12/29/18 13:07 Hemoglobin A1c 7.9 H White Blood Count 9.6 Red Blood Count 3.66 L Hemoglobin 10.7 L Hematocrit 33.9 L Mean Corpuscular 92.6 Volume Mean Corpuscular 29.2 Hemoglobin Mean Corpuscular 31.6 L Hemoglobin Concent Red Cell 13.8 Distribution Width Platelet Count 276 Mean Platelet Volume 10.8 H Immature 0.300 Granulocytes % Neutrophils % 77.1 H Lymphocytes % 9.6 L Monocytes % 9.6 Eosinophils % 2.9 Basophils % 0.5 Nucleated Red Blood 0.0 Cells % Immature 0.030 Granulocytes # Neutrophils # 7.4 Lymphocytes # 0.9 Monocytes # 0.9 Eosinophils # 0.3 Basophils # 0.1 Nucleated Red Blood 0.0 Cells # Sodium Level 140 Potassium Level 4.4 Chloride Level 102 Carbon Dioxide Level 23 Anion Gap 15 H Blood Urea Nitrogen 46 #H Creatinine 5.92 H Est Glomerular Filtrat Rate mL/min Glucose Level 193 Calcium Level 9.4 Bedside Glucose 200 Exam/Review of Systems Exam Vitals Vital Signs Date Temp Pulse Resp B/P (MAP) Pulse Ox O2 O2 Flow FiO2 Time Delivery Rate 12/29/18 98.2 77 19 114/58 98 11:19 (76) 12/29/18 2.0 01:45 12/28/18 Nasal 20:00 Cannula Intake and Output 12/28/18 12/28/18 12/29/18 1515:00 23:00 07:00 IntakeIntake Total 620 ml OutputOutput Total 2700 ml 200 ml 350 ml BalanceBalance -2700 ml 420 ml -350 ml Results Results 24hrs Laboratory Tests Test 12/28/18 17:36 12/28/18 20:55 12/28/18 23:30 12/29/18 08:50 Bedside Glucose 198 160 183 Urine Eosinophils % 0.0 Test 12/29/18 09:43 12/29/18 09:48 12/29/18 13:07 Hemoglobin A1c 7.9 H White Blood Count 9.6 Red Blood Count 3.66 L Hemoglobin 10.7 L Hematocrit 33.9 L Mean Corpuscular 92.6 Volume Mean Corpuscular 29.2 Hemoglobin Mean Corpuscular 31.6 L Hemoglobin Concent Red Cell 13.8 Distribution Width Platelet Count 276 Mean Platelet Volume 10.8 H Immature 0.300 Granulocytes % Neutrophils % 77.1 H Lymphocytes % 9.6 L Monocytes % 9.6 Eosinophils % 2.9 Basophils % 0.5 Nucleated Red Blood 0.0 Cells % Immature 0.030 Granulocytes # Neutrophils # 7.4 Lymphocytes # 0.9 Monocytes # 0.9 Eosinophils # 0.3 Basophils # 0.1 Nucleated Red Blood 0.0 Cells # Sodium Level 140 Potassium Level 4.4 Chloride Level 102 Carbon Dioxide Level 23 Anion Gap 15 H Blood Urea Nitrogen 46 #H Creatinine 5.92 H Est Glomerular Filtrat Rate mL/min Glucose Level 193 Calcium Level 9.4 Bedside Glucose 200 Medications Medication Current Medications Ipratropium [place] (Atrovent Hfa) 4 puff Q4H RESP THERAPY PRN INH SHORTNESS OF BREATH; Start 12/24/18 at 05:00 Nitroglycerin (Nitroglycerin (Sl Tab) 0.4 Mg) 1 tab Q5M PRN SL CHEST PAIN; Start 12/24/18 at 05:00 Acetaminophen (Tylenol Liquid) 650 mg Q6H PRN PO PAIN LEVEL 1-3 OR FEVER Last administered on 12/26/18 05:46; Admin Dose 650 MG; Start 12/24/18 at 05:00 Levalbuterol (Xopenex Neb) 1.25 mg Q4H RESP THERAPY PRN HHN SHORTNESS OF BREATH; Start 12/24/18 at 05:00 Calcitriol (Rocaltrol) 0.25 mcg DAILY PO Last administered on 12/29/18 09:33; Admin Dose 0.25 MCG; Start 12/25/18 at 09:00 Docusate Sodium (Colace) 100 mg DAILY PRN PO CONSTIPATION Last administered on 12/26/18 20:24; Admin Dose 100 MG; Start 12/24/18 at 09:30 Magnesium Oxide (Mag-Ox 400) 400 mg DAILY PO Last administered on 12/29/18 09:33; Admin Dose 400 MG; Start 12/25/18 at 09:00; Status Hold Tamsulosin HCl (Flomax) 0.4 mg HS PO Last administered on 12/28/18 20:46; Admin Dose 0.4 MG; Start 12/24/18 at 21:00 Morphine Sulfate (morphine) 2 mg Q2H PRN IV SEVERE PAIN LEVEL 7-10 Last administered on 12/27/18 03:04; Admin Dose 2 MG; Start 12/24/18 at 16:30 Aspirin (Halfprin) 81 mg DAILY PO Last administered on 12/29/18 09:33; Admin Dose 81 MG; Start 12/24/18 at 19:00 Zolpidem Tartrate (Ambien) 5 mg HS MAY REPEAT X 1 PRN PO INSOMNIA Last administered on 12/28/18 22:46; Admin Dose 5 MG; Start 12/25/18 at 01:00 Clopidogrel Bisulfate (plaVIX) 75 mg DAILY PO Last administered on 12/29/18 09:33; Admin Dose 75 MG; Start 12/26/18 at 09:00 Insulin Aspart (Novolog Insulin Pen) NOVOLOG *MODERATE* ALGORITHM WITH MEALS BEDTIME SC Last administered on 12/29/18 13:21; Admin Dose 4 UNIT; Start 12/26/18 at 07:35 Miscellaneous Information 1 ea NOTE XX ; Start 12/26/18 at 05:00 Glucose (Glutose) 15 gm Q15M PRN PO DECREASED GLUCOSE; Start 12/26/18 at 05:00 Glucose (Glutose) 22.5 gm Q15M PRN PO DECREASED GLUCOSE; Start 12/26/18 at 05:00 Dextrose (D50w Syringe) 25 ml Q15M PRN IV DECREASED GLUCOSE; Start 12/26/18 at 05:00 Dextrose (D50w Syringe) 50 ml Q15M PRN IV DECREASED GLUCOSE; Start 12/26/18 at 05:00 Glucagon (Glucagen) 1 mg Q15M PRN IM DECREASED GLUCOSE; Start 12/26/18 at 05:00 Glucose (Glutose) 15 gm Q15M PRN BUCCAL DECREASED GLUCOSE; Start 12/26/18 at 05:00 Multivit/Ca Carb/ B Cmplx/FA/Prenat (Drea-Grisel) 1 tab DAILY PO Last administered on 12/29/18 09:33; Admin Dose 1 TAB; Start 12/26/18 at 09:00 Sevelamer Carbonate (Renvela) 800 mg WITH MEALS PO Last administered on 12/29/18 13:05; Admin Dose 800 MG; Start 12/26/18 at 11:30 Carvedilol (Coreg) 6.25 mg BID PO Last administered on 12/29/18 09:32; Admin Dose 6.25 MG; Start 12/26/18 at 09:00 Losartan Potassium (Cozaar) 25 mg DAILY PO Last administered on 12/29/18 09:33; Admin Dose 25 MG; Start 12/27/18 at 09:00 Cefepime HCl 50 ml @ 100 mls/hr Q24H IVPB Last administered on 12/29/18 09:32; Admin Dose 100 MLS/HR; Start 12/26/18 at 09:30 Famotidine (Pepcid) 20 mg DAILY PO Last administered on 12/29/18 09:33; Admin Dose 20 MG; Start 12/27/18 at 09:00 Acetaminophen/ Hydrocodone Bitart ([place] (5/325)) 1 tab Q4H PRN PO MODERATE PAIN LEVEL 4-6 Last administered on 12/28/18 10:20; Admin Dose 1 TAB; Start 12/26/18 at 12:30 Nystatin (Nystatin Powder) 1 applic BID TOP Last administered on 12/29/18at 10:22; Admin Dose 1 APPLIC; Start 12/27/18 at 12:30 Insulin Aspart (Novolog Insulin Pen) 6 unit WITH MEALS SC ; Start 12/29/18 at 17:55 Insulin Glargine (Lantus) 18 units DAILY@0800 SC ; Start 12/30/18 at 08:00 CARLOS LE MD December 29, 2018 15:28
[2018-12-29] MEDS ORDERED: INSULIN ASPART [NOVOLOG] 3 ML PEN SC SCH (17:55)
[2018-12-29] MEDS: TAMSULOSIN (SR) 0.4 MG CAP PO SCH (21:12)
[2018-12-29] MEDS: LACTOBACILLUS RHAMNOSUS CAP PO SCH (21:12)
[2018-12-29] MEDS: ZOLPIDEM 5 MG TAB PO PRN (21:12)
[2018-12-29] MEDS: ACETAMINOPHEN 650MG/20.3ML CUP PO PRN (21:12)
[2018-12-30] VITALS (26 sets, daily range): BP systolic 94–155; BP diastolic 55–82; PULSE 66–85; RESP 18–20
[2018-12-30] MEDS: SEVELAMER CARBONATE 800 MG TABLET PO SCH ×3 (07:27→18:16)
[2018-12-30] MEDS: INSULIN GLARGINE [LANTus] (100 UNITS/ML) SYG SC SCH (07:52)
[2018-12-30] MEDS: INSULIN ASPART [NOVOLOG] 3 ML PEN SC SCH ×7 (07:53→21:00)
[2018-12-30] MEDS ORDERED: INSULIN GLARGINE [LANTus] (100 UNITS/ML) SYG SC SCH (08:00)
[2018-12-30] MEDS: ASPIRIN (EC) 81 MG TAB PO SCH (09:18)
[2018-12-30] MEDS: FAMOTIDINE 20 MG TAB PO SCH (09:18)
[2018-12-30] MEDS: MULTIVIT/CA CARB/B CMPLX/FA TAB PO SCH (09:18)
[2018-12-30] MEDS: CALCITRIOL 0.25 MCG CAP PO SCH (09:18)
[2018-12-30] MEDS: CEFEPIME 1GM/50 ML (PMX) 50 ML IVPB SCH (09:18)
[2018-12-30] MEDS: LOSARTAN 25 MG TAB PO SCH (09:18)
[2018-12-30] MEDS: LACTOBACILLUS RHAMNOSUS CAP PO SCH ×2 (09:19→20:20)
[2018-12-30] MEDS: CLOPIDOGREL 75 MG TAB PO SCH (09:19)
[2018-12-30] MEDS: NYSTATIN 30 GM POWDER BTL TOP SCH ×2 (09:19→20:21)
--- NOTE | 2018-12-30 09:21 | PN ---
DATE: 12/30/2018 SUBJECTIVE: The patient is stable. No events overnight. OBJECTIVE: VITAL SIGNS: Blood pressure is 133/62, pulse 69, respirations 20, temperature 98.0. HEENT: Head is normocephalic. NECK: Supple. HEART: Regular rate. LUNGS: Show diminished breath sounds at the base. ABDOMEN: Soft, nontender to palpation without rebound or guarding. EXTREMITIES: Negative for clubbing, cyanosis, no edema. DERMATOLOGIC: No rashes. MUSCULOSKELETAL: No joint effusion. NEUROLOGIC: No change in exam. MEDICATIONS: The patient's medications have been reviewed. LABORATORY DATA: Has been reviewed. ASSESSMENT AND PLAN: 1. End-stage renal disease. The patient is scheduled for dialysis today. We will dialyze for 3 luis rs 2k bath, calcium 2.5. 2. Anemia. Monitor hemoglobin and hematocrit levels. Continue Epogen. 3. Mineral bone disorder, monitor calcium and phosphorus levels. 4. Hypertension. Continue current blood pressure regimen. 5. Acute hypoxemic respiratory failure secondary to pneumonia, volume overload, improving. Continue current treatment plan. Continue dialysis, continue antibiotic therapy. 6. Hypertension. Continue current blood pressure regimen. 7. NSTEMI status post percutaneous coronary intervention. Continue medical management. 8. Diabetes. Continue current insulin regimen. 9. History of gout. Dictated By: ALLISON GALLOWAY DO NR/NTS Conf#: [id number] DID#: [id number] CC: SLIME PACK MD; SONI PRITCHETT; ARETHA ELIZALDE MD;*EndCC*
--- NOTE | 2018-12-30 11:13 | CONS ---
Assessment/Plan Assessment/Plan Assessment/Plan (Daily) Assessment and recommendations; 1. Patient admitted with CHF exacerbation as well as left lower lobe pneumonia with significant interval clinical improvement. 2. History of diabetes and hypertension. 3. Chronic renal failure, on hemodialysis. 4. Chronic anemia. Continue current supportive care. Continue antibiotic for additional 48 hours. Consultation Date/Type/Reason Admit Date/Time December 24, 2018 at 04:04 Initial Consult Date 12/24/18 Type of Consult Pulmonary/critical care Requesting Provider: ESTELA GIVENS Date/Time of Note DATE: 12/30/18 TIME: 11:12 24 HR Interval Summary Free Text/Dictation Patient condition is stable. Denies any shortness of breath, chest pain. General exam; elderly male, awake and alert. Currently in no distress. Exam/Review of Systems Exam Vitals Vital Signs Date Temp Pulse Resp B/P (MAP) Pulse Ox O2 O2 Flow FiO2 Time Delivery Rate 12/30/18 66 08:22 12/30/18 98.0 20 133/62 97 Room Air 07:50 (85) 12/30/18 2.0 27 02:01 Intake and Output 12/29/18 12/29/18 12/30/18 1515:00 23:00 07:00 IntakeIntake Total 400 ml 300 ml OutputOutput Total 100 ml 250 ml BalanceBalance 300 ml 50 ml Exam H ENT exam; supple neck, positive JVD. No lymphadenopathy. Midline trachea. No thyromegaly. No neck masses. Chest exam; diminished but clear breath sounds. S1-S2 audible, no murmurs. Regular rhythm. Abdomen exam; soft, nontender. No organomegaly. Bowel sounds audible. Extremity exam; no peripheral edema clubbing. RACE RELATIONS ADVISER exam; no focal deficit. Results Result Diagram: 12/30/18 0609 12/30/18 0609 Results 24hrs Laboratory Tests Test 12/29/18 13:07 12/29/18 19:03 12/29/18 21:14 12/30/18 06:09 Bedside Glucose 200 183 92 White Blood Count 9.9 Red Blood Count 3.57 L Hemoglobin 10.5 L Hematocrit 32.5 L Mean Corpuscular 91.0 Volume Mean Corpuscular 29.4 Hemoglobin Mean Corpuscular 32.3 Hemoglobin Concent Red Cell 13.7 Distribution Width Platelet Count 280 Mean Platelet Volume 10.8 H Immature 0.500 H Granulocytes % Neutrophils % 73.3 Lymphocytes % 12.5 L Monocytes % 9.7 Eosinophils % 3.5 Basophils % 0.5 Nucleated Red Blood 0.0 Cells % Immature 0.050 H Granulocytes # Neutrophils # 7.3 Lymphocytes # 1.2 Monocytes # 1.0 H Eosinophils # 0.4 Basophils # 0.1 Nucleated Red Blood 0.0 Cells # Sodium Level 139 Potassium Level 4.3 Chloride Level 100 Carbon Dioxide Level 23 Anion Gap 16 H Blood Urea Nitrogen 71 H Creatinine 6.75 H Est Glomerular Filtrat Rate mL/min Glucose Level 183 Calcium Level 9.5 Test 12/30/18 07:27 Bedside Glucose 198 Medications Medication Current Medications Ipratropium [place] (Atrovent Hfa) 4 puff Q4H RESP THERAPY PRN INH SHORTNESS OF BREATH; Start 12/24/18 at 05:00 Nitroglycerin (Nitroglycerin (Sl Tab) 0.4 Mg) 1 tab Q5M PRN SL CHEST PAIN; Start 12/24/18 at 05:00 Acetaminophen (Tylenol Liquid) 650 mg Q6H PRN PO PAIN LEVEL 1-3 OR FEVER Last administered on 12/29/18 21:12; Admin Dose 650 MG; Start 12/24/18 at 05:00 Levalbuterol (Xopenex Neb) 1.25 mg Q4H RESP THERAPY PRN HHN SHORTNESS OF BREATH; Start 12/24/18 at 05:00 Calcitriol (Rocaltrol) 0.25 mcg DAILY PO Last administered on 12/30/18at 09:18; Admin Dose 0.25 MCG; Start 12/25/18 at 09:00 Docusate Sodium (Colace) 100 mg DAILY PRN PO CONSTIPATION Last administered on 12/26/18 20:24; Admin Dose 100 MG; Start 12/24/18 at 09:30 Magnesium Oxide (Mag-Ox 400) 400 mg DAILY PO Last administered on 12/29/18 09 :33; Admin Dose 400 MG; Start 12/25/18 at 09:00; Status Hold Tamsulosin HCl (Flomax) 0.4 mg HS PO Last administered on 12/29/18 21:12; Admin Dose 0.4 MG; Start 12/24/18 at 21:00 Morphine Sulfate (morphine) 2 mg Q2H PRN IV SEVERE PAIN LEVEL 7-10 Last administered on 12/27/18 03:04; Admin Dose 2 MG; Start 12/24/18 at 16:30 Aspirin (Halfprin) 81 mg DAILY PO Last administered on 12/30/18 09:18; Admin Dose 81 MG; Start 12/24/18 at 19:00 Zolpidem Tartrate (Ambien) 5 mg HS MAY REPEAT X 1 PRN PO INSOMNIA Last administered on 12/29/18 21:12; Admin Dose 5 MG; Start 12/25/18 at 01:00 Clopidogrel Bisulfate (plaVIX) 75 mg DAILY PO Last administered on 12/30/18 09:19; Admin Dose 75 MG; Start 12/26/18 at 09:00 Insulin Aspart (Novolog Insulin Pen) NOVOLOG *MODERATE* ALGORITHM WITH MEALS BEDTIME SC Last administered on 12/30/18 07:53; Admin Dose 4 UNIT; Start 12/26/18 at 07:35 Miscellaneous Information 1 ea NOTE XX ; Start 12/26/18 at 05:00 Glucose (Glutose) 15 gm Q15M PRN PO DECREASED GLUCOSE; Start 12/26/18 at 05:00 Glucose (Glutose) 22.5 gm Q15M PRN PO DECREASED GLUCOSE; Start 12/26/18 at 05:00 Dextrose (D50w Syringe) 25 ml Q15M PRN IV DECREASED GLUCOSE; Start 12/26/18 at 05:00 Dextrose (D50w Syringe) 50 ml Q15M PRN IV DECREASED GLUCOSE; Start 12/26/18 at 05:00 Glucagon (Glucagen) 1 mg Q15M PRN IM DECREASED GLUCOSE; Start 12/26/18 at 05:00 Glucose (Glutose) 15 gm Q15M PRN BUCCAL DECREASED GLUCOSE; Start 12/26/18 at 05:00 Multivit/Ca Carb/ B Cmplx/FA/Prenat (Drea-Grisel) 1 tab DAILY PO Last administered on 12/30/18 09:18; Admin Dose 1 TAB; Start 12/26/18 at 09:00 Sevelamer Carbonate (Renvela) 800 mg WITH MEALS PO Last administered on 12/30/18 07:27; Admin Dose 800 MG; Start 12/26/18 at 11:30 Carvedilol (Coreg) 6.25 mg BID PO Last administered on 12/30/18 09:19; Admin Dose 6.25 MG; Start 12/26/18 at 09:00 Losartan Potassium (Cozaar) 25 mg DAILY PO Last administered on 12/30/18 09:18; Admin Dose 25 MG; Start 12/27/18 at 09:00 Cefepime HCl 50 ml @ 100 mls/hr Q24H IVPB Last administered on 12/30/18 09:18; Admin Dose 100 MLS/HR; Start 12/26/18 at 09:30 Famotidine (Pepcid) 20 mg DAILY PO Last administered on 12/30/18 09:18; Admin Dose 20 MG; Start 12/27/18 at 09:00 Acetaminophen/ Hydrocodone Bitart ([place] (5/325)) 1 tab Q4H PRN PO MODERATE PAIN LEVEL 4-6 Last administered on 12/28/18 10:20; Admin Dose 1 TAB; Start 12/26/18 at 12:30 Nystatin (Nystatin Powder) 1 applic BID TOP Last administered on 12/30/18 09:19; Admin Dose 1 APPLIC; Start 12/27/18 at 12:30 Insulin Aspart (Novolog Insulin Pen) 7 unit WITH MEALS SC Last administered on 12/30/18 07:53; Admin Dose 7 UNIT; Start 12/29/18 at 17:55 Insulin Glargine (Lantus) 21 units DAILY@0800 SC Last administered on 12/30/18 07:52; Admin Dose 21 UNITS; Start 12/30/18 at 08:00 Lactobacillus Acidophilus/ Rhamnosus (Culturelle) 1 cap BID PO Last administered on 12/30/18 09:19; Admin Dose 1 CAP; Start 12/29/18 at 21:00 Epoetin [place]-epbx (Retacrit (Esrd)) 8,000 unit MoWeFr@1700 SC ; Start 12/31/18 at 17:00 BARBRA RODNEY December 30, 2018 11:13
--- NOTE | 2018-12-30 11:20 | PN ---
Date/Time of Note Date/Time of Note DATE: 12/30/18 TIME: 11:16 Assessment/Plan VTE Prophylaxis Risk score (from Nsg)>0 risk: 7 SCD applied (from Nsg): Yes Pharmacological prophylaxis: other Lines/Catheters IV Catheter Type (from Nrsg): Saline Lock Urinary Cath still in place: Yes Reason Cath still needed: urinary retention Assessment/Plan Hospital Course Subjective: no new complaints, patient awaiting dialysis for later today. Family refusing ARU or SNF placement. Objective: Constitutional: alert, oriented Head: atraumatic, normocephalic Neck: non-tender, supple Respiratory: clear to auscultation, diminished Cardiovascular: regular rate and rhythm Gastrointestinal: S/ NT / ND / +BS [facility] 12/25/18: Date/Time of Note Date/Time of Note DATE: 12/25/18 TIME: 16:39 Operative Report Procedure Date: December 25, 2018 Preoperative Diagnosis NSTEMI Postoperative Diagnosis NSTEMI Operation/Procedure Performed PCI LAD Assessment and plan: 78-year-old male who presented with: 1. Acute respiratory failure status post noninvasive positive pressure ventilation: Initially found with left lower lobe pneumonia, overall improved- Deescalated to oxygen via nasal cannula 2 L a minute - 2/2 #2 and 3 -Monitor, duo nebs as needed -Continue current antibiotics for now 2. Fluid overload/CHF exacerbation: Improved -Monitor, continue dialysis per renal conditions and current cardiac medications 3. NSTEMI -Status post cardiac catheterization with PCI to left anterior descending on December 25, 2018 -Monitor, continue aspirin, Plavix, Coreg, Cozaar -Follow-up further cardiology recommendations 4. Left lower lobe pneumonia and tracheobronchitis -see #1, improving on antibiotics -Presently on Abx per pulm, continue for now and monitor 5. Diabetes mellitus with hyperglycemia without DKA-occurred on admission, sugars improved in the high normal range now -We will slightly increase the dose of aspart with meals, and Lantus today, continue sliding scale insulin, monitor -Follow-up A1c 6. Hypertension -stable, continue current medications 7. Chronic BPH -monitor 8. History of gout -monitor 9. End-stage renal disease on hemodialysis -again last dialysis was yesterday -Monitor, continue dialysis per renal recommendations 10. UTI -appears mild, improving on antibiotics -Follow-up final urine culture results, continue antibiotics 11. cephalic VV thrombosis R UE -elevate, consider warm compresses carefully 12. Concern on CT of the brain for pseudotumor cerebri versus idiopathic intracranial hypertension-Ct was done to workup headache, now resolved . Appreciate neurology consult -Monitor, follow-up further recommendations Plan:- -PT recommends SNF/ ARU. patient accepted in ARU for Monday12/30/18-but now family has refused this, as well as SNF -We will try to arrange for home health PT, home health nursing, confirmed that dialysis is set up as outpatient, once that is performed patient likely will be cleared likely for home either today or tomorrow DVT GI prophylaxis: Heparin, Protonix Result Diagram: 12/30/18 0609 12/30/18 0609 Results 24hrs Laboratory Tests Test 12/29/18 13:07 12/29/18 19:03 12/29/18 21:14 12/30/18 06:09 Bedside Glucose 200 183 92 White Blood Count 9.9 Red Blood Count 3.57 L Hemoglobin 10.5 L Hematocrit 32.5 L Mean Corpuscular 91.0 Volume Mean Corpuscular 29.4 Hemoglobin Mean Corpuscular 32.3 Hemoglobin Concent Red Cell 13.7 Distribution Width Platelet Count 280 Mean Platelet Volume 10.8 H Immature 0.500 H Granulocytes % Neutrophils % 73.3 Lymphocytes % 12.5 L Monocytes % 9.7 Eosinophils % 3.5 Basophils % 0.5 Nucleated Red Blood 0.0 Cells % Immature 0.050 H Granulocytes # Neutrophils # 7.3 Lymphocytes # 1.2 Monocytes # 1.0 H Eosinophils # 0.4 Basophils # 0.1 Nucleated Red Blood 0.0 Cells # Sodium Level 139 Potassium Level 4.3 Chloride Level 100 Carbon Dioxide Level 23 Anion Gap 16 H Blood Urea Nitrogen 71 H Creatinine 6.75 H Est Glomerular Filtrat Rate mL/min Glucose Level 183 Calcium Level 9.5 Test 12/30/18 07:27 Bedside Glucose 198 Exam/Review of Systems Exam Vitals Vital Signs Date Temp Pulse Resp B/P (MAP) Pulse Ox O2 O2 Flow FiO2 Time Delivery Rate 12/30/18 98.3 76 20 134/64 94 Room Air 11:11 (87) 12/30/18 2.0 27 02:01 Intake and Output 12/29/18 12/29/18 12/30/18 1515:00 23:00 07:00 IntakeIntake Total 400 ml 300 ml OutputOutput Total 100 ml 250 ml BalanceBalance 300 ml 50 ml Results Results 24hrs Laboratory Tests Test 12/29/18 13:07 12/29/18 19:03 12/29/18 21:14 12/30/18 06:09 Bedside Glucose 200 183 92 White Blood Count 9.9 Red Blood Count 3.57 L Hemoglobin 10.5 L Hematocrit 32.5 L Mean Corpuscular 91.0 Volume Mean Corpuscular 29.4 Hemoglobin Mean Corpuscular 32.3 Hemoglobin Concent Red Cell 13.7 Distribution Width Platelet Count 280 Mean Platelet Volume 10.8 H Immature 0.500 H Granulocytes % Neutrophils % 73.3 Lymphocytes % 12.5 L Monocytes % 9.7 Eosinophils % 3.5 Basophils % 0.5 Nucleated Red Blood 0.0 Cells % Immature 0.050 H Granulocytes # Neutrophils # 7.3 Lymphocytes # 1.2 Monocytes # 1.0 H Eosinophils # 0.4 Basophils # 0.1 Nucleated Red Blood 0.0 Cells # Sodium Level 139 Potassium Level 4.3 Chloride Level 100 Carbon Dioxide Level 23 Anion Gap 16 H Blood Urea Nitrogen 71 H Creatinine 6.75 H Est Glomerular Filtrat Rate mL/min Glucose Level 183 Calcium Level 9.5 Test 12/30/18 07:27 Bedside Glucose 198 Medications Medication Current Medications Ipratropium [place] (Atrovent Hfa) 4 puff Q4H RESP THERAPY PRN INH SHORTNESS OF BREATH; Start 12/24/18 at 05:00 Nitroglycerin (Nitroglycerin (Sl Tab) 0.4 Mg) 1 tab Q5M PRN SL CHEST PAIN; Start 12/24/18 at 05:00 Acetaminophen (Tylenol Liquid) 650 mg Q6H PRN PO PAIN LEVEL 1-3 OR FEVER Last administered on 12/29/18at 21:12; Admin Dose 650 MG; Start 12/24/18 at 05:00 Levalbuterol (Xopenex Neb) 1.25 mg Q4H RESP THERAPY PRN HHN SHORTNESS OF BREATH; Start 12/24/18 at 05:00 Calcitriol (Rocaltrol) 0.25 mcg DAILY PO Last administered on 12/30/18at 09:18; Admin Dose 0.25 MCG; Start 12/25/18 at 09:00 Docusate Sodium (Colace) 100 mg DAILY PRN PO CONSTIPATION Last administered on 12/26/18 20:24; Admin Dose 100 MG; Start 12/24/18 at 09:30 Magnesium Oxide (Mag-Ox 400) 400 mg DAILY PO Last administered on 12/29/18 09:33; Admin Dose 400 MG; Start 12/25/18 at 09:00; Status Hold Tamsulosin HCl (Flomax) 0.4 mg HS PO Last administered on 12/29/18 21:12; Admin Dose 0.4 MG; Start 12/24/18 at 21:00 Morphine Sulfate (morphine) 2 mg Q2H PRN IV SEVERE PAIN LEVEL 7-10 Last administered on 12/27/18 03:04; Admin Dose 2 MG; Start 12/24/18 at 16:30 Aspirin (Halfprin) 81 mg DAILY PO Last administered on 12/30/18 09:18; Admin Dose 81 MG; Start 12/24/18 at 19:00 Zolpidem Tartrate (Ambien) 5 mg HS MAY REPEAT X 1 PRN PO INSOMNIA Last administered on 12/29/18 21:12; Admin Dose 5 MG; Start 12/25/18 at 01:00 Clopidogrel Bisulfate (plaVIX) 75 mg DAILY PO Last administered on 12/30/18 09:19; Admin Dose 75 MG; Start 12/26/18 at 09:00 Insulin Aspart (Novolog Insulin Pen) NOVOLOG *MODERATE* ALGORITHM WITH MEALS BEDTIME SC Last administered on 12/30/18at 07:53; Admin Dose 4 UNIT; Start 12/26/18 at 07:35 Miscellaneous Information 1 ea NOTE XX ; Start 12/26/18 at 05:00 Glucose (Glutose) 15 gm Q15M PRN PO DECREASED GLUCOSE; Start 12/26/18 at 05:00 Glucose (Glutose) 22.5 gm Q15M PRN PO DECREASED GLUCOSE; Start 12/26/18 at 05:00 Dextrose (D50w Syringe) 25 ml Q15M PRN IV DECREASED GLUCOSE; Start 12/26/18 at 05:00 Dextrose (D50w Syringe) 50 ml Q15M PRN IV DECREASED GLUCOSE; Start 12/26/18 at 05:00 Glucagon (Glucagen) 1 mg Q15M PRN IM DECREASED GLUCOSE; Start 12/26/18 at 05:00 Glucose (Glutose) 15 gm Q15M PRN BUCCAL DECREASED GLUCOSE; Start 12/26/18 at 05:00 Multivit/Ca Carb/ B Cmplx/FA/Prenat (Drea-Grisel) 1 tab DAILY PO Last administered on 12/30/18 09:18; Admin Dose 1 TAB; Start 12/26/18 at 09:00 Sevelamer Carbonate (Renvela) 800 mg WITH MEALS PO Last administered on 12/30/18 07:27; Admin Dose 800 MG; Start 12/26/18 at 11:30 Carvedilol (Coreg) 6.25 mg BID PO Last administered on 12/30/18 09:19; Admin Dose 6.25 MG; Start 12/26/18 at 09:00 Losartan Potassium (Cozaar) 25 mg DAILY PO Last administered on 12/30/18 09:18; Admin Dose 25 MG; Start 12/27/18 at 09:00 Cefepime HCl 50 ml @ 100 mls/hr Q24H IVPB Last administered on 12/30/18 09:18; Admin Dose 100 MLS/HR; Start 12/26/18 at 09:30 Famotidine (Pepcid) 20 mg DAILY PO Last administered on 12/30/18 09:18; Admin Dose 20 MG; Start 12/27/18 at 09:00 Acetaminophen/ Hydrocodone Bitart ([place] (5/325)) 1 tab Q4H PRN PO MODERATE PAIN LEVEL 4-6 Last administered on 12/28/18 10:20; Admin Dose 1 TAB; Start 12/26/18 at 12:30 Nystatin (Nystatin Powder) 1 applic BID TOP Last administered on 12/30/18 09:19; Admin Dose 1 APPLIC; Start 12/27/18 at 12:30 Insulin Aspart (Novolog Insulin Pen) 7 unit WITH MEALS SC Last administered on 12/30/18 07:53; Admin Dose 7 UNIT; Start 12/29/18 at 17:55 Insulin Glargine (Lantus) 21 units DAILY@0800 SC Last administered on 12/30/18 07:52; Admin Dose 21 UNITS; Start 12/30/18 at 08:00 Lactobacillus Acidophilus/ Rhamnosus (Culturelle) 1 cap BID PO Last administered on 12/30/18 09:19; Admin Dose 1 CAP; Start 12/29/18 at 21:00 Epoetin Jordan-epbx (Retacrit (Esrd)) 8,000 unit MoWeFr@1700 SC ; Start 12/31/18 at 17:00 SONI PRITCHETT December 30, 2018 11:20
[2018-12-30] MEDS: ATORVASTATIN 40 MG TAB PO SCH ×2 (12:12→20:21)
--- NOTE | 2018-12-30 12:40 | CONS ---
Assessment/Plan Assessment/Plan Hospital Course 78 yo M with multiple comorbidities who initially presented for evaluation of severe respiratory distress. On 12/25, there was c/o severe headaches, prompting a CTH that was concerning for intracranial hypertension... for which neurology is consulted. The clinical picture is inconsistent with pseudotumor cerebri. P: Ok to defer additional neuroimaging for now Pain and other medical management per primary Will follow clinically, to recommend neurologic studies, as necessary. Consultation Date/Type/Reason Admit Date/Time December 24, 2018 at 04:04 Type of Consult Neurology Reason for Consultation eval for idiopathic intracranial hypertension Requesting Provider: ESTELA GIVENS Date/Time of Note DATE: 12/30/18 TIME: 12:40 24 HR Interval Summary Free Text/Dictation Continues acute care. Exam Vital Signs Vitals Vital Signs Date Temp Pulse Resp B/P (MAP) Pulse Ox O2 O2 Flow FiO2 Time Delivery Rate 12/30/18 74 12:29 12/30/18 98.3 20 134/64 94 Room Air 11:11 (87) 12/30/18 2.0 27 02:01 Intake and Output 12/29/18 12/29/18 12/30/18 1515:00 23:00 07:00 IntakeIntake Total 400 ml 300 ml OutputOutput Total 100 ml 250 ml BalanceBalance 300 ml 50 ml Exam PE: Gen Appearance: No Apparent Distress HEENT: Normocephalic Cardiovascular: Regular rate Lungs: Clear bilaterally Abdomen: Soft Extremities: Dry NE: The patient was alert and oriented. Language was normal. Fund of knowledge was normal. Pupils were equal and reactive to light. There was no afferent pupillary defect. Visual merritt were normal. Funduscopic examination was limited. Extra-ocular movements were full. Ptosis was absent. There was no nystagmus. Facial sensation was normal. Face was symmetric with normal strength. Hearing was intact. Palate movements were normal. Neck strength was normal. There was normal tongue bulk and speed of movement. Tone was normal. Muscle bulk was normal. I did not see fasciculations. The pt was generally weak, mildly. Vibration sensation was normal. Temperature and pinprick sensation was normal. Rapid alternating movements were normal. There was no dysmetria. There was no intention tremor. Gait was deferred due to bedrest. Arm and leg reflexes were 2+ and symmetric. Arguelles's sign was absent. Plantar responses were flexor. AYANNA FARRIS NP December 30, 2018 12:40
[2018-12-30] MEDS: TAMSULOSIN (SR) 0.4 MG CAP PO SCH (20:20)
[2018-12-30] MEDS: ACETAMINOPHEN 650MG/20.3ML CUP PO PRN (21:47)
[2018-12-30] MEDS: ZOLPIDEM 5 MG TAB PO PRN (21:56)
[2018-12-31] VITALS (24 sets, daily range): BP systolic 95–158; BP diastolic 47–80; PULSE 58–73; RESP 1–20
--- NOTE | 2018-12-31 08:12 | PN ---
DATE: 12/31/2018 SUBJECTIVE: The patient is stable. No events overnight. OBJECTIVE: VITAL SIGNS: Blood pressure is 136/64, pulse 70, respirations 20, temperature 98.1. HEENT: Head is normocephalic. NECK: Supple. HEART: Regular rate. LUNGS: Show diminished breath sounds at the base. ABDOMEN: Soft, nontender to palpation without rebound or guarding. EXTREMITIES: Negative for clubbing, cyanosis, no edema. DERMATOLOGIC: No rashes. MUSCULOSKELETAL: No joint effusion. NEUROLOGIC: No change in exam. MEDICATIONS: Reviewed. LABORATORY DATA: Reviewed. ASSESSMENT AND PLAN: 1. End-stage renal disease. The patient had hemodialysis yesterday, tolerated well. Plan is for di alysis again tomorrow. 2. Anemia. Continue to monitor hemoglobin and hematocrit levels. Continue Epogen. 3. Mineral bone disorder, monitor calcium and phosphorus levels. 4. Hypertension. Continue current blood pressure regimen. 5. Acute hypoxemic respiratory failure secondary to pneumonia, volume overload, improving. Continue current treatment plan. Continue dialysis. Continue antibiotic therapy. 6. Hypertension. Continue current blood pressure regimen. 7. Non-ST elevation myocardial infarction status post percutaneous coronary intervention to the left anterior descending. Continue current medical management. 8. Diabetes. Continue current insulin regimen. 9. History of gout. Dictated By: ALLISON GALLOWAY DO NR/NTS Conf#: [id number] DID#: [id number] CC: ARETHA ELIZALDE MD; SONI PRITCHETT; SLIME PACK MD;*EndCC*
[2018-12-31] MEDS: INSULIN ASPART [NOVOLOG] 3 ML PEN SC SCH ×6 (08:15→18:15)
[2018-12-31] MEDS: MULTIVIT/CA CARB/B CMPLX/FA TAB PO SCH (08:50)
[2018-12-31] MEDS: CALCITRIOL 0.25 MCG CAP PO SCH (08:50)
[2018-12-31] MEDS: LACTOBACILLUS RHAMNOSUS CAP PO SCH (08:50)
[2018-12-31] MEDS: ASPIRIN (EC) 81 MG TAB PO SCH (08:51)
[2018-12-31] MEDS: FAMOTIDINE 20 MG TAB PO SCH (08:51)
[2018-12-31] MEDS: CLOPIDOGREL 75 MG TAB PO SCH (08:51)
[2018-12-31] MEDS: LOSARTAN 25 MG TAB PO SCH (08:52)
[2018-12-31] MEDS: SEVELAMER CARBONATE 800 MG TABLET PO SCH ×3 (09:25→18:08)
[2018-12-31] MEDS: CEFEPIME 1GM/50 ML (PMX) 50 ML IVPB SCH (09:26)
[2018-12-31] MEDS: INSULIN GLARGINE [LANTus] (100 UNITS/ML) SYG SC SCH (09:29)
[2018-12-31] MEDS: NYSTATIN 30 GM POWDER BTL TOP SCH (09:31)
--- NOTE | 2018-12-31 09:58 | PDOCDIS ---
Discharge Instructions CONDITION [id number] Patient Condition: [id number] Stable HOME CARE INSTRUCTIONS: [id number] Diet Instructions: [id number] Low Fat /Cholesterol ACTIVITY: [id number] Activity Restrictions: [id number] Slowly Increase Activity Rest between Activity Avoid heavy lifting FOLLOW UP/APPOINTMENTS Follow-up Plan Please take your medications as prescribed, see your doctor in the clinic in the next 1 to 2 weeks. If you experience any further pain, nausea vomiting, lightheaded or dizziness, please immediately go to ER, call 911, or call your renal or primary care doctor right away. SONI PRITCHETT December 31, 2018 09:58
[2018-12-31] MEDS ORDERED: Insulin Glargine SC (10:03)
[2018-12-31] MEDS ORDERED: ASPI-1044 PO (10:03)
[2018-12-31] MEDS ORDERED: FAMO20TA18 PO (10:03)
[2018-12-31] MEDS ORDERED: LOSA25TA2 PO (10:03)
[2018-12-31] MEDS ORDERED: SEVE800T23 PO (10:03)
[2018-12-31] MEDS ORDERED: NOVO3I SC (10:03)
[2018-12-31] MEDS ORDERED: NEPH PO (10:03)
[2018-12-31] MEDS ORDERED: NST15PW TOP (10:03)
[2018-12-31] MEDS ORDERED: CLOP75TA28 PO (10:03)
[2018-12-31] MEDS ORDERED: ATOR40TA68 PO (10:03)
[2018-12-31] MEDS ORDERED: LACT1CAP28 PO (10:03)
[2018-12-31] MEDS ORDERED: NITR0.4T32 SL (10:03)
--- NOTE | 2018-12-31 10:13 | DS ---
Date/Time of Note Date/Time of Note DATE: 12/31/18 TIME: 10:07 Discharge Summary Admission/Discharge Info Admit Date/Time December 24, 2018 at 04:04 Discharge Date/Time Discharge Diagnosis 1. Acute respiratory failure status post noninvasive positive pressure ventilation: Initially found with left lower lobe pneumonia, overall improved 2. Fluid overload/CHF exacerbation: Improved 3. NSTEMI -Status post cardiac catheterization with PCI to left anterior descending on December 25, 2018 4. Left lower lobe pneumonia and tracheobronchitis -see #1, improving on antibiotic 5. Diabetes mellitus with hyperglycemia without DKA-resolved now, A1c 7.9 6. Hypertension 7. Chronic BPH 8. History of gout 9. End-stage renal disease on hemodialysis 10. UTI -appears mild, improving on antibiotics 11. cephalic VV thrombosis R UE improving with elevation and as needed warm compresses 12. Concern on CT of the brain for pseudotumor cerebri versus idiopathic intracranial hypertension-Ct was done to workup headache, now resolved Plan:- Procedures [facility] 12/25/18: Date/Time of Note Date/Time of Note DATE: 12/25/18 TIME: 16:39 Operative Report Procedure Date: December 25, 2018 Preoperative Diagnosis NSTEMI Postoperative Diagnosis NSTEMI Operation/Procedure Performed PCI LAD 2D echo: Conclusions: Normal left ventricular cavity size. Sigmoid septum. Moderate global left ventricular systolic dysfunction. Ejection fraction is visually estimated at 35-40 %. Tissue Doppler/Mitral Doppler indices are consistent with impaired relaxation (Stage I diastolic dysfunction). Multiple segmental wall motion abnormalities. These segments of the LV are hypokinetic mid anterior segment, apical anterior segment, apical lateral segment, inferior apex segment, apex and apical septum. The left atrium is normal in size. Mild mitral leaflet calcification. Mild mitral annular calcification. Trace mitral regurgitation. No hemodynamically significant aortic stenosis by doppler. Aortic cusps appear mildly calcified. Normal appearance of the tricuspid valve. Estimated peak PA systolic pressure 35 mmHg. There is mild tricuspid regurgitation. Dilated IVC without respiratory collapse, however, patient on BI-PAP. Hx of Present Illness 78-year-old male who was brought via ambulance to [facility] emergency department in extremities and as a possible STEMI. When patient arrived in the emergency department via EMS he was noted to be in severe respiratory distress and was placed on CPAP in route. The ED physician did order a stat EKG which she stated did not appear to be a STEMI. In the emergency department patient was noted to have elevated blood pressures in the 170s. On examination of his lungs he had diffuse crackles/rales and wheezing. BiPAP and nitroglycerin were initiated which did result in improvement of patient's symptoms. His daughter was present with him at the bedside. She states that over the last week he has been having a cough. He has been going to his regular dialysis appointments. Daughter stated that for the cough patient was recently started on Bactrim on Monday and and then this morning woke up short of breath.vomiting. He denies ch est pain nausea vomiting or diarrhea. Hospital Course Patient was admitted and seen by multiple specialists during this hospital stay including pulmonary, renal, neurology, and cardiology teams. Patient was treated for upper respiratory infection improved with antibiotics. Patient also found with some fluid overload, which improved after treatment for CHF exacerbation and for the end-stage renal disease getting dialysis. Patient also found with non-ST elevation NE, and underwent left heart cath with stenting performed to blockage found in the LAD. Patient tolerated these procedures well. Patient also order physical therapy while here in the hospital, able to ambulate with assistance, tolerated diet. There was some concern of intracranial hypertension based on brain imaging studies, so neurology team was consulted for that, however the findings overall were inconsistent with pseudotumor cerebri and patient had no further symptoms afterward. After getting clearance from communication consultant teams patient will be discharged home today in improved condition, and this will be performed once we confirmed the home health nursing has been set up as well as the home health PT with specific orders have been set up as well. See below for full list of discharge medications. Home Meds Active Scripts Insulin Aspart* (Novolog Insulin Pen*) 100 Unit/Ml Soln, 5 UNIT SC WITH MEALS, #1 BOTTLE 2 Refills Prov:OSNI PRITCHETT S. 12/31/18 [Insulin Glargine] 100 UNITS/ML SOLN No Conflict Check, 20 UNITS SC DAILY@0800 Prov:SONI PRITCHETT S. 12/31/18 Lactobacillus Rhamnosus GG (Culturelle) 1 Each Capsule, 1 CAP PO BID, #60 CAP 3 Refills Prov:SONI PRITCHETT S. 12/31/18 Multivit/Ca Carb/B Cmplx/Fa* (Drea-Grisel*) 1 Tab Tab, 1 TAB PO DAILY, #30 TAB 3 Refills Prov:SONI PRITCHETT S. 12/31/18 Nystatin* (Nyamyc* Powder) 1 Applic Powder, 1 APPLIC TOP BID, #1 BOTTLE Prov:SONI PRITCHETT S. 12/31/18 Famotidine* (Famotidine*) 20 Mg Tablet, 20 MG PO DAILY, #30 TAB 3 Refills Prov:SONI PRITCHETT S. 12/31/18 Sevelamer Carbonate (Sevelamer Carbonate) 800 Mg Tablet, 800 MG PO WITH MEALS, #90 TAB 3 Refills Prov:SONI PRITCHETT S. 12/31/18 Aspirin Delayed Release (Aspirin Delayed Release) 81 Mg Tablet.dr, 81 MG PO DAILY, #30 4 Refills Prov:SONI PRITCHETT S. 12/31/18 Nitroglycerin* (Nitroglycerin* SL) 0.4 Mg Tab.subl, 1 TAB SL Q5M PRN for CHEST PAIN, #5 Prov:SONI PRITCHETT S. 12/31/18 Losartan Potassium* (Cozaar*) 25 Mg Tablet, 25 MG PO DAILY, #30 TAB 4 Refills Prov:SONI PRITCHETT S. 12/31/18 Atorvastatin* (Atorvastatin*) 40 Mg Tablet, 40 MG PO HS, #30 TAB 5 Refills Prov:SONI PRITCHETT S. 12/31/18 Clopidogrel Bisulfate (Clopidogrel) 75 Mg Tablet, 75 MG PO DAILY, #30 TAB 8 Refills Prov:SONI PRITCHETT S. 12/31/18 Reported Medications Magnesium Oxide* (Mag-Oxide*) 400 Mg Tablet, 400 MG PO DAILY, TAB 12/24/18 Losartan-Hydrochlorothiazide (Losartan-HCTZ) 100-12.5 Mg Tab, 1 TAB ORAL DAILY 12/24/18 Tamsulosin Hcl* (Flomax*) 0.4 Mg Cap.er.24h, 0.4 MG PO HS, CAP 12/24/18 Carvedilol* (Carvedilol*) 6.25 Mg Tablet, 1 TAB ORAL BID 12/24/18 Ergocalciferol (Vitamin D2) (VITAMIN D2) 50,000 Unit Capsule, 1 CAP ORAL WEEKLY 12/24/18 Ranitidine Hcl* (Ranitidine Hcl*) 300 Mg Tablet, 300 MG PO DAILY, #30 TAB 12/24/18 Trazodone Hcl* (Trazodone Hcl*) 100 Mg Tablet, 100 MG PO QHS, #30 TAB 12/24/18 Allopurinol* (Allopurinol*) 300 Mg Tablet, 300 MG PO DAILY, TAB 12/24/18 Docusate Sodium* (Docusate Sodium*) 100 Mg Capsule, 100 MG PO DAILY PRN for CONSTIPATION, #30 CAP 12/24/18 Levocetirizine Dihydrochloride (LEVOCETIRIZINE DIHYDROCHLORIDE) 5 Mg Tablet, 1 TAB ORAL DAILY 12/24/18 Insulin Glargine* (Lantus*) 100 Unit/Ml Soln, 25-30 UNIT SC QHS, #1 VIAL 12/24/18 Sulfamethoxazole/Trimethoprim (Sulfamethoxazole-Tmp Ds Tablet) 1 Each Tablet, 1 TAB ORAL DAILY 12/24/18 Calcitriol* (Rocaltrol*) 0.25 Mcg Capsule, 0.25 MCG PO DAILY, CAP 12/24/18 Follow-up Plan Please take your medications as prescribed, see your doctor in the clinic in the next 1 to 2 weeks. If you experience any further pain, nausea vomiting, lightheaded or dizziness, please immediately go to ER, call 911, or call your renal or primary care doctor right away. Primary Care Provider Filiberto Talley Pending Labs Laboratory Tests Test 12/30/18 11:51 12/30/18 18:11 12/30/18 21:17 12/31/18 08:12 Bedside 150 195 134 151 Glucose mg/dL (70-220) mg/dL (70-220) mg/dL (70-220) mg/dL (70-220) SONI PRITCHETT December 31, 2018 10:13
--- NOTE | 2018-12-31 10:33 | CONS ---
Assessment/Plan Assessment/Plan Hospital Course 78 yo M with multiple comorbidities who initially presented for evaluation of severe respiratory distress. On 12/25, there was c/o severe headaches, prompting a CTH that was concerning for intracranial hypertension... for which neurology is consulted. The clinical picture is inconsistent with pseudotumor cerebri. Perhaps a nonspecific (tension) headache is the context of systemic illness...now resolved. P: Ok to defer additional neuroimaging for now Pain and other medical management per primary Will follow clinically. Consultation Date/Type/Reason Admit Date/Time December 24, 2018 at 04:04 Type of Consult Neurology Reason for Consultation eval for idiopathic intracranial hypertension Requesting Provider: ESTELA GIVENS Date/Time of Note DATE: 12/31/18 TIME: 10:33 24 HR Interval Summary Free Text/Dictation Continues acute care. Pt is without complaints at this time. Exam Vital Signs Vitals Vital Signs Date Temp Pulse Resp B/P (MAP) Pulse Ox O2 O2 Flow FiO2 Time Delivery Rate 12/31/18 68 08:00 12/31/18 98.1 20 136/64 95 Room Air 07:36 (88) 12/31/18 2.0 27 02:27 Intake and Output 12/30/18 12/30/18 12/31/18 1515:00 23:00 07:00 IntakeIntake Total 720 ml 200 ml OutputOutput Total 3100 ml 100 ml BalanceBalance -2380 ml 100 ml Exam PE: Gen Appearance: No Apparent Distress HEENT: Normocephalic Cardiovascular: Regular rate Lungs: Clear bilaterally Abdomen: Soft Extremities: Dry NE: The patient was alert and oriented. Language was normal. Fund of knowledge was normal. Pupils were equal and reactive to light. There was no afferent pupillary defect. Visual merritt were normal. Funduscopic examination was limited. Extra-ocular movements were full. Ptosis was absent. There was no nystagmus. Facial sensation was normal. Face was symmetric with normal strength. Hearing was intact. Palate movements were normal. Neck strength was normal. There was normal tongue bulk and speed of movement. Tone was normal. Muscle bulk was normal. I did not see fasciculations. The pt was generally weak, mildly. Vibration sensation was normal. Temperature and pinprick sensation was normal. Rapid alternating movements were normal. There was no dysmetria. There was no intention tremor. Gait was deferred due to bedrest. Arm and leg reflexes were 2+ and symmetric. Arguelles's sign was absent. Plantar responses were flexor. AYANNA FARRIS NP December 31, 2018 10:33 JACQUELINE RYAN January 01, 2019 07:41
--- NOTE | 2018-12-31 11:05 | CONS ---
Consult Date/Type/Reason Admit Date/Time December 24, 2018 at 04:04 Initial Consult Date 12/24/18 Type of Consult Pulmonary Requesting Provider: ESTELA GIVENS Date/Time of Note DATE: 12/31/18 TIME: 11:04 Subjective Comfortable today no respiratory distress Objective Vital Signs Date Temp Pulse Resp B/P (MAP) Pulse Ox O2 O2 Flow FiO2 Time Delivery Rate 12/31/18 68 08:00 12/31/18 98.1 20 136/64 95 Room Air 07:36 (88) 12/31/18 2.0 27 02:27 Intake and Output 12/30/18 12/30/18 12/31/18 1515:00 23:00 07:00 IntakeIntake Total 720 ml 200 ml OutputOutput Total 3100 ml 100 ml BalanceBalance -2380 ml 100 ml Exam GENERAL: Well-nourished well-developed gentleman comfortable at rest no acute distress on room air VITAL SIGNS: per chart NECK: Supple. No JVD or lymphadenopathy. CARDIAC EXAM: S1, S2. No added sounds or murmurs. CHEST: clear bilaterally, No added sounds, rales or wheezes ABDOMEN: Soft, nontender. No guarding or rebound. EXTREMITIES: No cyanosis, clubbing or edema. NEUROLOGIC: Generalized weakness. No focal deficits. Vent Setting Fraction of Inspired Oxygen pe: 27 Results/Medications Result Diagram: 12/30/18 0609 12/30/18 0609 Results 24 hrs Laboratory Tests Test 12/30/18 11:51 12/30/18 18:11 12/30/18 21:17 12/31/18 08:12 Bedside Glucose 150 195 134 151 Medications Current Medications Ipratropium [place] (Atrovent Hfa) 4 puff Q4H RESP THERAPY PRN INH SHORTNESS OF BREATH; Start 12/24/18 at 05:00 Nitroglycerin (Nitroglycerin (Sl Tab) 0.4 Mg) 1 tab Q5M PRN SL CHEST PAIN; Start 12/24/18 at 05:00 Acetaminophen (Tylenol Liquid) 650 mg Q6H PRN PO PAIN LEVEL 1-3 OR FEVER Last administered on 12/30/18at 21:47; Admin Dose 650 MG; Start 12/24/18 at 05:00 Levalbuterol (Xopenex Neb) 1.25 mg Q4H RESP THERAPY PRN HHN SHORTNESS OF BREATH; Start 12/24/18 at 05:00 Calcitriol (Rocaltrol) 0.25 mcg DAILY PO Last administered on 12/31/18 08:50; Admin Dose 0.25 MCG; Start 12/25/18 at 09:00 Docusate Sodium (Colace) 100 mg DAILY PRN PO CONSTIPATION Last administered on 12/26/18 20:24; Admin Dose 100 MG; Start 12/24/18 at 09:30 Magnesium Oxide (Mag-Ox 400) 400 mg DAILY PO Last administered on 12/29/18 09:33; Admin Dose 400 MG; Start 12/25/18 at 09:00; Status Hold Tamsulosin HCl (Flomax) 0.4 mg HS PO Last administered on 12/29/18 21:12; Admin Dose 0.4 MG; Start 12/24/18 at 21:00 Aspirin (Halfprin) 81 mg DAILY PO Last administered on 12/31/18 08:51; Admin Dose 81 MG; Start 12/24/18 at 19:00 Zolpidem Tartrate (Ambien) 5 mg HS MAY REPEAT X 1 PRN PO INSOMNIA Last adm inistered on 12/30/18 21:56; Admin Dose 5 MG; Start 12/25/18 at 01:00 Clopidogrel Bisulfate (plaVIX) 75 mg DAILY PO Last administered on 12/31/18 08:51; Admin Dose 75 MG; Start 12/26/18 at 09:00 Insulin Aspart (Novolog Insulin Pen) NOVOLOG *MODERATE* ALGORITHM WITH MEALS BEDTIME SC Last administered on 12/31/18 08:15; Admin Dose 2 UNIT; Start 12/26/18 at 07:35 Miscellaneous Information 1 ea NOTE XX ; Start 12/26/18 at 05:00 Glucose (Glutose) 15 gm Q15M PRN PO DECREASED GLUCOSE; Start 12/26/18 at 05:00 Glucose (Glutose) 22.5 gm Q15M PRN PO DECREASED GLUCOSE; Start 12/26/18 at 05:00 Dextrose (D50w Syringe) 25 ml Q15M PRN IV DECREASED GLUCOSE; Start 12/26/18 at 05:00 Dextrose (D50w Syringe) 50 ml Q15M PRN IV DECREASED GLUCOSE; Start 12/26/18 at 05:00 Glucagon (Glucagen) 1 mg Q15M PRN IM DECREASED GLUCOSE; Start 12/26/18 at 05:00 Glucose (Glutose) 15 gm Q15M PRN BUCCAL DECREASED GLUCOSE; Start 12/26/18 at 05:00 Multivit/Ca Carb/ B Cmplx/FA/Prenat (Drea-Grisel) 1 tab DAILY PO Last administered on 12/31/18 08:50; Admin Dose 1 TAB; Start 12/26/18 at 09:00 Sevelamer Carbonate (Renvela) 800 mg WITH MEALS PO Last administered on 12/31/18 09:25; Admin Dose 800 MG; Start 12/26/18 at 11:30 Carvedilol (Coreg) 6.25 mg BID PO Last administered on 12/31/18 08:51; Admin Dose 6.25 MG; Start 12/26/18 at 09:00 Losartan Potassium (Cozaar) 25 mg DAILY PO Last administered on 12/31/18 08:52; Admin Dose 25 MG; Start 12/27/18 at 09:00 Cefepime HCl 50 ml @ 100 mls/hr Q24H IVPB Last administered on 12/31/18 09:26; Admin Dose 100 MLS/HR; Start 12/26/18 at 09:30 Famotidine (Pepcid) 20 mg DAILY PO Last administered on 12/31/18 08:51; Admin Dose 20 MG; Start 12/27/18 at 09:00 Acetaminophen/ Hydrocodone Bitart ([place] (5/325)) 1 tab Q4H PRN PO MODERATE PAIN LEVEL 4-6 Last administered on 12/28/18 10:20; Admin Dose 1 TAB; Start 12/26/18 at 12:30 Nystatin (Nystatin Powder) 1 applic BID TOP Last administered on 12/31/18 09:31; Admin Dose 1 APPLIC; Start 12/27/18 at 12:30 Insulin Aspart (Novolog Insulin Pen) 7 unit WITH MEALS SC Last administered on 12/31/18 08:16; Admin Dose 7 UNIT; Start 12/29/18 at 17:55 Insulin Glargine (Lantus) 21 units DAILY@0800 SC Last administered on 12/31/18 09:29; Admin Dose 21 UNITS; Start 12/30/18 at 08:00 Lactobacillus Acidophilus/ Rhamnosus (Culturelle) 1 cap BID PO Last administered on 12/31/18at 08:50; Admin Dose 1 CAP; Start 12/29/18 at 21:00 Epoetin Jordan-epbx (Retacrit (Esrd)) 8,000 unit MoWeFr@1700 SC ; Start 12/31/18 at 17:00 Atorvastatin Calcium (Lipitor) 40 mg HS PO Last administered on 12/30/18at 12:12; Admin Dose 40 MG; Start 12/30/18 at 12:00 Morphine Sulfate (morphine) 1 mg Q4H PRN IV SEVERE PAIN LEVEL 7-10; Start 12/31/18 at 12:30 Assessment/Plan Hospital Course (Demo Recall) Assessment 1. Acute hypoxemic respiratory failure likely secondary to volume overload possible pneumonia component 2. End-stage renal failure on hemodialysis 3. Significant global weakness Plan 1. Continue hemodialysis with volume removal 2 aspiration precautions 3. Physical therapy recommendations Agree with discharge planning. SLIME PACK MD, FCCP December 31, 2018 11:05
[2018-12-31] MEDS ORDERED: morphine 2 MG INJ IV PRN (12:30)
[2018-12-31] MEDS ORDERED: EPOETIN ALFA-EPBX (ESRD) 4,000 UNIT/ML VIAL SC SCH (17:00)
== END 2018-12-31 19:02 | disposition home health service (06) | DRG 246 ==
LOC: E/R 03:04 → ICU 04:04 → EDBEDREQSVC 06:16 → EDBEDREQ 06:16 → TEL 12-26 16:55
PROVIDERS: ADMIT Family Medicine; ATTEND Hospitalist
PROC: 5A1D70Z Performance of Urinary Filtration, Intermittent, Less than 6 Hours Per Day (ICD-10-PCS; 2018-12-24)
PROC: 5A09357 Assistance with Respiratory Ventilation, Less than 24 Consecutive Hours, Continuous Positive Airway Pressure (ICD-10-PCS; 2018-12-24)
PROC: B211YZZ Fluoroscopy of Multiple Coronary Arteries using Other Contrast (ICD-10-PCS; 2018-12-25)
PROC: B240ZZ3 Ultrasonography of Single Coronary Artery, Intravascular (ICD-10-PCS; 2018-12-25)
PROC: 027035Z Dilation of Coronary Artery, One Artery with Two Drug-eluting Intraluminal Devices, Percutaneous Approach (ICD-10-PCS; principal; 2018-12-25 17:30)
PROC: 02C03ZZ Extirpation of Matter from Coronary Artery, One Artery, Percutaneous Approach (ICD-10-PCS; 2018-12-25 17:30)
PROC: 4A023N7 Measurement of Cardiac Sampling and Pressure, Left Heart, Percutaneous Approach (ICD-10-PCS; 2018-12-25 17:30)
DX: I21.4 Non-ST elevation (NSTEMI) myocardial infarction (principal); I50.23 Acute on chronic systolic (congestive) heart failure; N18.6 End stage renal disease; J96.01 Acute respiratory failure with hypoxia; J18.1 Lobar pneumonia, unspecified organism; E87.2 Acidosis; I13.0 Hypertensive heart and chronic kidney disease with heart failure and stage 1 through stage 4 chronic kidney disease, or unspecified chronic kidney disease; N39.0 Urinary tract infection, site not specified; I82.611 Acute embolism and thrombosis of superficial veins of right upper extremity; E11.65 Type 2 diabetes mellitus with hyperglycemia; E78.5 Hyperlipidemia, unspecified; N40.0 Benign prostatic hyperplasia without lower urinary tract symptoms; D63.1 Anemia in chronic kidney disease; G93.2 Benign intracranial hypertension; J20.9 Acute bronchitis, unspecified; M10.9 Gout, unspecified; I25.10 Atherosclerotic heart disease of native coronary artery without angina pectoris; I73.9 Peripheral vascular disease, unspecified; Z79.4 Long term (current) use of insulin; Z99.2 Dependence on renal dialysis
CPT/HCPCS: 36415; 36600; 70450; 71045; 80048; 80053; 80061; 81001; 82550; 82553; 82803; 82962; 83036; 83605; 83690; 83735; 83880; 84100; 84145; 84439; 84443; 84484; 85025; 85610; 85730; 86704; 86709; 86803; 87081; 87086; 87340; 89190; 90935; 92928; 92978; 93005; 93306; 93458; 93971; 94660; 96374; 96375; 97161; 97166; 97167; C1725; C1757; C1760; C1874; C1887; C1894; J0583; J0692; J1644; J1815; J1940; J2250; J2270; J3010; J7030; Q5105; Q9967